=== PATIENT | male | born 1935 | race Caucasian/White ===

== ENCOUNTER 2016-10-04 00:24 | Inpatient (IN) ==
--- NOTE | 2016-10-04 00:47 | Emergency Department Note ---
Disposition Clinical Impression: TIA (transient ischemic attack) Qualifiers: Transient cerebral ischemia type: unspecified Qualified Code(s): G45.9 - Transient cerebral ischemic attack, unspecified Disposition: Admitted As Inpatient Condition: Good Weakness HPI - General Chief complaint: ED Weakness Stated complaint: weakness Time Seen by Provider: 10/04/16 00:44 Source: patient, family, EMS Mode of arrival: EMS Limitations: physical limitation Nursing Notes Reviewed: Yes Vital Signs Reviewed: Yes - History of Present Illness HPI Narrative: 81-year-old male history of CVA, seizures, hyperlipidemia who presents to the ER with a chief complaint of weakness and altered mental status. Patient is accompanied by . She states that this evening prior to arrival that she was helping the patient go to the bathroom. She reports that he was not following her commands and would not walk on his own. She states that she had to help him get back from the bathroom. She states she still would not follow her commands and was not responding when she was speaking. EMS was called and the patient was brought in for evaluation. History is obtained by the . She states that he has had a CVA in 2013 with resultant right sided deficits. Patient is also hard of hearing and follows ENT for management. Patient has no complaints here today. She reports that he seems to be back to his usual self. No other complaints. Pt Subjective Complaint: generalized weakness/fatigue Onset (ago): Just [employer] Duration: now resolved Location: generalized Migration: none Pain Severity: none Pain Scale: 0 Improves with: none Worsens with: none Associated symptoms: Denies: chest pain, fever/chills, nausea/vomiting, shortness of breath, syncope - Related Data Allergies Allergy/AdvReac Type Severity Reaction Status Date / Time Hydromorphone [From Dilaudid] Allergy See Verified 05/13/16 11:54 Comments All systems ED: reviewed and negative except as stated. Constitutional: Denies: fever Cardiovascular: Denies: chest pain Respiratory: Denies: cough, dyspnea Gastrointestinal: Denies: abdominal pain, nausea, vomiting Neurological: Denies: headache, weakness, numbness Past Medical History - Past Medical History Attestation: Yes The following information was validated with the patient. Source: patient Medical history: Reports: CVA, hyperlipidemia, seizures, TIA Surgical history: Reports: non-contributory Psychiatric history: Reports: depression - Social History Smoking Status: Never smoker Smokeless Tobacco Status: No Alcohol use: Reports: none Drug use: Reports: none Physical Exam - General Limitations: no limitations General appearance: alert, in no apparent distress - Head Head exam: atraumatic, normocephalic, normal inspection - Eye Eye exam: Present: normal appearance, EOMI - ENT ENT exam: normal exam - Neck Neck exam: Present: normal inspection - Chest Chest inspection: Present: normal inspection, symmetric chest wall rise - Respiratory Respiratory exam: Present: normal lung sounds bilaterally - Cardiovascular Cardiovascular exam: Present: regular rate, normal rhythm, normal heart sounds - Abdominal Exam Abdominal exam: Present: soft, Non-Tender. Absent: tenderness - Extremities Exam Extremities exam: Present: normal inspection, full ROM - Expanded Upper Extremity Exam Shoulder exam: Present: normal inspection, full ROM Arm exam: Present: normal inspection, full ROM Elbow exam: Present: normal inspection, full ROM Forearm/Wrist exam: Present: normal inspection, full ROM Hand exam: Present: normal inspection, full ROM - Expanded Lower Extremity Exam Hip/Pelvis exam: Present: normal inspection, full ROM Upper leg exam: Present: normal inspection, full ROM Knee exam: Present: normal inspection, full ROM Lower leg exam: Present: normal inspection, full ROM Ankle exam: Present: normal inspection, full ROM Foot/toe exam: Present: normal inspection, full ROM - Neurological Exam Neurological exam: Present: alert, CN II-XII intact, motor sensory deficit - Expanded Neurological Exam Speech: Present: fluid speech Motor strength - LUE: 5/5 Motor strength - RUE: 4/5 Motor strength - LLE: 5/5 Motor strength - RLE: 5/5 Sensory exam upper extremity: light touch: Abnormal Right Sensory exam lower extremity: light touch: Normal Coma Scale Eye Opening: Spontaneous Coma Scale Motor Response: Obeys Commands Coma Scale Verbal Response: Oriented Coma Scale Total: 15 - Psychiatric Psychiatric exam: Present: normal affect, normal mood - Skin Skin exam: Present: warm, dry, intact, normal color Course Course Narrative: Patient seen and examined. Vital signs reviewed. We will get a CT scan of the head. We will also get basic labs, EKG and urinalysis. NIH of 2 given his sensory deficit in the right upper extremity as well as muscle weakness. - Reevaluation(s) Reevaluation #1: Discussed results of imaging and lab work and the patient and family. Vital Signs Temperature 97.7 F 10/04/16 00:28 Pulse Rate 85 10/04/16 00:28 Respiratory Rate 16 10/04/16 00:28 Blood Pressure 145/101 10/04/16 00:28 O2 Sat by Pulse Oximetry 96 10/04/16 00:28 Temperature 97.7 F 10/04/16 00:28 Pulse Rate 75 10/04/16 01:17 Respiratory Rate 16 10/04/16 03:11 Blood Pressure 146/68 10/04/16 03:11 O2 Sat by Pulse Oximetry 98 10/04/16 01:17 Oxygen Delivery Oxygen Delivery Room Air Weakness - MDM Narrative Medical decision making narrative: 81-year-old male presents to the ER due to altered mental status at home. Resolved prior to arrival. reports that he was not cooperating well at home with commands. History of CVA in the past. CT scan here shows encephalomalacia as per radiology read. Other lab work unremarkable. Patient admitted to the hospitalist service for further management. - Lab Data Lab results reviewed: Yes I reviewed the patient's lab results. Result diagrams: 10/04/16 01:21 10/04/16 01:21 Lab Results 10/04/16 10/04/16 10/04/16 Range/Units 00:32 01:21 01:21 WBC 9.5 (4.3-11.1) K/mcL RBC 4.70 (4.19-5.50) M/mcL Hgb 13.9 (12.9-16.9) g/dL Hct 39.6 (37.5-50.1) % MCV 84.3 (83.0-100.0) fL MCH 29.6 (28.0-33.3) pg MCHC 35.1 (31.6-35.5) g/dL RDW 12.7 (11.5-14.5) % Plt Count 228 (140-400) K/mcL MPV 9.8 (9.4-12.4) fL Immature Gran % 0.5 (0-4) % Seg Neutrophils % 72.8 % Lymphocytes % 18.0 % Monocytes % 7.4 % Eosinophils % 1.1 % Basophils % 0.2 % Neutrophils # 6.9 (1.6-8.9) K/mcL Lymphocytes # 1.7 (0.6-4.6) K/mcL Monocytes # 0.7 (0.0-1.3) K/mcL Eosinophils # 0.1 (0.0-0.6) K/mcL Basophils # 0.0 (0.0-0.2) K/mcL Sodium 140 (136-145) mEq/L Potassium 4.6 H (3.5-4.5) mEq/L Chloride 109 (98-109) mEq/L Carbon Dioxide 20 (19-29) mEq/L BUN 20 (8-26) mg/dL Creatinine 1.26 H (0.72-1.25) mg/dL Est GFR ( Amer) > 60 (> 60) Est GFR (Non-Af Amer) 55 L (> 60) BUN/Creatinine Ratio 16 (6-26) Glucose 103 H (70-99) mg/dL POC Glucose 102 H (58-89) Calculated Osmolality 293 (280-300) Calcium 8.1 L (8.6-10.8) mg/dL Total Bilirubin 0.2 (0.2-1.2) mg/dL AST 20 (5-34) Units/L ALT 33 (0-55) Units/L Alkaline Phosphatase 64 (38-126) Units/L Troponin I (0-0.03) ng/mL Serum Total Protein 6.8 (6.0-8.3) g/dL Albumin 3.1 L (3.5-5.0) g/dL Globulin 3.7 H (2.4-3.5) g/dL Albumin/Globulin Ratio 0.8 L (1.1-2.2) 10/04/16 Range/Units 01:21 WBC (4.3-11.1) K/mcL RBC (4.19-5.50) M/mcL Hgb (12.9-16.9) g/dL Hct (37.5-50.1) % MCV (83.0-100.0) fL MCH (28.0-33.3) pg MCHC (31.6-35.5) g/dL RDW (11.5-14.5) % Plt Count (140-400) K/mcL MPV (9.4-12.4) fL Immature Gran % (0-4) % Seg Neutrophils % % Lymphocytes % % Monocytes % % Eosinophils % % Basophils % % Neutrophils # (1.6-8.9) K/mcL Lymphocytes # (0.6-4.6) K/mcL Monocytes # (0.0-1.3) K/mcL Eosinophils # (0.0-0.6) K/mcL Basophils # (0.0-0.2) K/mcL Sodium (136-145) mEq/L Potassium (3.5-4.5) mEq/L Chloride (98-109) mEq/L Carbon Dioxide (19-29) mEq/L BUN (8-26) mg/dL Creatinine (0.72-1.25) mg/dL Est GFR ( Amer) (> 60) Est GFR (Non-Af Amer) (> 60) BUN/Creatinine Ratio (6-26) Glucose (70-99) mg/dL POC Glucose (58-89) Calculated Osmolality (280-300) Calcium (8.6-10.8) mg/dL Total Bilirubin (0.2-1.2) mg/dL AST (5-34) Units/L ALT (0-55) Units/L Alkaline Phosphatase (38-126) Units/L Troponin I 0.00 (0-0.03) ng/mL Serum Total Protein (6.0-8.3) g/dL Albumin (3.5-5.0) g/dL Globulin (2.4-3.5) g/dL Albumin/Globulin Ratio (1.1-2.2) - Radiology Data Radiology results reviewed: Yes I reviewed the patient's radiology results. Chest X-Ray 10/04/16 00:44 IMPRESSION: 1. No acute cardiopulmonary disease. D/ / Moose Tomlinson MD / Moose Tomlinson MD Interpreting Provider: Moose Tomlinson MD Head CT 10/04/16 00:44 IMPRESSION: 1. Left frontoparietal encephalomalacia with superimposed small vessel chronic ischemic changes without acute hemorrhage or definite evidence for acute ischemia. 2. Grossly stable sellar and suprasellar mass. D/ / Te Angel MD / Te Angel MD Interpreting Provider: Te Angel MD - EKG Data EKG attestation: Yes I reviewed and interpreted this EKG. EKG results narrative: EKG demonstrates atrial fibrillation with a rate of 83 bpm. Normal axis. QRS duration [address] elevations or depressions. No acute ischemic findings. No significant changes from previous EKG dated 09/19/14. Tori - Tori Situation: Demographics, MOA Background: Presenting Complaint, Relevant PMH, Meds, & Allergies Assessment: Vital Signs, Course and respsone to treatment, Exam Concerns, Patient/Family Expectation, Pertinant Lab Results, Outstanding Labs Recommendation: Barrier(s) to disposition, Recommendation based on pending studies, treatments, or consults S.BAndrew Report Given to: Dr. Mark Valle Repor Time: 03:10 Attestation Statement - Attestation Attestation: I, David Carty MD, personally performed a history and physical exam of the patient and discussed their management with the resident. I reviewed the resident's note and agree with the documented findings, medical decision making , and plan of care. 81-year-old male presents to the emergency department with complaining that he had an episode at home this evening decreased responsiveness. He seemed confused and would not respond or follow commands. He was not unresponsive. He has a prior history of a stroke with weakness on one side. says he normally ambulates using a walker. With this episode tonight she states he was trying to get up from a chair and did not know where to place his hands on the walker. He did not know how to help her to help him up from the chair. Symptoms have resolved and patient seems to be pretty much back to his baseline now. He is extremely hard of hearing and really unable to provide any history or review of systems. History obtained from . 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 She states that she does not have any help to care for him. On exam patient is a well-developed well-nourished elderly male in no acute distress. He is alert and follows commands. Extremely hard of hearing. Breath sounds are equal bilaterally. Heart regular rate and rhythm. Abdomen is soft and nontender with normal bowel sounds. No distention. Labs reviewed. Chest x-ray negative. Head CT shows no acute intracranial abnormality. No acute changes on EKG. The hospitalist, Dr. Flores, was consulted and accepted admission of the patient.
[2016-10-04 01:36] LABS: Basophils % 0.2 %; Eosinophils # 0.1 K/mcL (0.0-0.6); Eosinophils % 1.1 %; Hematocrit 39.6 % (37.5-50.1); Hemoglobin 13.9 g/dL (12.9-16.9); Immature Granulocytes % 0.5 % (0-4); Lymphocytes # 1.7 K/mcL (0.6-4.6); Mean Corpuscular HGB Conc 35.1 g/dL (31.6-35.5); Mean Corpuscular Hemoglobin 29.6 pg (28.0-33.3); Mean Corpuscular Volume 84.3 fL (83.0-100.0); Mean Platelet Volume 9.8 fL (9.4-12.4); Monocytes # 0.7 K/mcL (0.0-1.3); Monocytes % 7.4 %; Neutrophils # 6.9 K/mcL (1.6-8.9); Platelet Count 228 K/mcL (140-400); Red Cell Distribution Width 12.7 % (11.5-14.5); Segmented Neutrophils % 72.8 %
[2016-10-04 01:46] LABS: Alanine Aminotransferase 33 Units/L (0-55); Albumin 3.1 g/dL (3.5-5.0); Albumin/Globulin Ratio 0.8 (1.1-2.2); Alkaline Phosphatase 64 Units/L (38-126); Aspartate Amino Transferase 20 Units/L (5-34); BUN/Creatinine Ratio 16 (6-26); Bilirubin,Total 0.2 mg/dL (0.2-1.2); Blood Urea Nitrogen 20 mg/dL (8-26); Calcium 8.1 mg/dL (8.6-10.8); Carbon Dioxide 20 mEq/L (19-29); Chloride 109 mEq/L (98-109); Globulin 3.7 g/dL (2.4-3.5); Glucose 103 mg/dL (70-99); Osmolality,Calculated 293 (280-300); Potassium 4.6 mEq/L (3.5-4.5); Sodium 140 mEq/L (136-145); Total Protein 6.8 g/dL (6.0-8.3); eGFR For African Americans > 60 (> 60); eGFR For Non-African Americans 55 (> 60)
[2016-10-04] MEDS ORDERED: Ondansetron 4 MG/2 ML VIAL IVP PRN (03:51)
[2016-10-04] MEDS ORDERED: *HR* OxyCODONE Immed Rel 5 MG TABLET PO PRN (03:51)
[2016-10-04] MEDS ORDERED: Naloxone 0.4 MG/ML INJ IVP PRN (03:51)
[2016-10-04] MEDS ORDERED: Ketorolac 30 MG/ML VIAL IVP PRN (03:51)
[2016-10-04] MEDS ORDERED: Acetaminophen 325 MG TABLET PO PRN (03:51)
[2016-10-04] MEDS ORDERED: Ipratropium/Albuterol Neb 3 ML IH PRN (04:04)
--- NOTE | 2016-10-04 04:15 | Internal Med History&Physical ---
Date of Encounter: 10/04/16 Time of Encounter: 03:30 Assessment and Plan (1) Acute on chronic alteration in mental status Current visit: Yes Status: Acute . (2) CVA, old, hemiparesis Current visit: Yes Status: Chronic . (3) CVA, old, dysarthria Current visit: Yes Status: Chronic . (4) CVA, old, cognitive deficits Current visit: Yes Status: Chronic . (5) CVA, old, aphasia Current visit: Yes Status: Chronic . (6) CVA, old, ataxia Current visit: Yes Status: Chronic . (7) Seizure disorder as sequela of cerebrovascular accident Current visit: Yes Status: Chronic . (8) HTN (hypertension) Current visit: Yes Status: Chronic . Qualifiers: Hypertension type: essential hypertension Qualified Code(s): I10 - Essential (primary) hypertension (9) HLD (hyperlipidemia) Current visit: Yes Status: Chronic Qualifiers: Hyperlipidemia type: mixed hyperlipidemia Qualified Code(s): E78.2 - Mixed hyperlipidemia (10) Accelerated hypertension Current visit: Yes Status: Chronic . (11) Hearing deficit Current visit: Yes Status: Chronic . Qualifiers: Laterality: bilateral Qualified Code(s): H91.93 - Unspecified hearing loss , bilateral (12) CKD (chronic kidney disease) stage 3, GFR 30-59 ml/min Current visit: Yes Status: Chronic . (13) Hyperkalemia Current visit: Yes Status: Acute . (14) Chronic anticoagulation Current visit: Yes Status: Chronic . (15) Paroxysmal atrial fibrillation Current visit: Yes Status: Chronic . (16) Chronic mastoiditis, bilateral Current visit: Yes Status: Chronic . (17) Otitis media in diseases classified elsewhere, right ear Current visit: Yes Status: Acute . (18) Type 2 diabetes mellitus Current visit: Yes Status: Chronic . 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 (20) Gait instability Current visit: Yes Status: Chronic . (21) At risk for accident in home Current visit: Yes Status: Acute . (22) At risk for acid-base imbalance Current visit: Yes Status: Acute . (23) At risk for activity intolerance Current visit: Yes Status: Acute . (24) At risk for acute confusion Current visit: Yes Status: Acute . (25) At risk for acute ischemic cardiac event Current visit: Yes Status: Acute . (26) Complete immobility due to severe physical disability or frailty Current visit: Yes Status: Acute . (27) TIA (transient ischemic attack) Current visit: Yes Status: Acute . Qualifiers: Transient cerebral ischemia type: unspecified Qualified Code(s): G45.9 - Transient cerebral ischemic attack, unspecified Internal Medicine - H&P: HPI Chief complaint: Confusion. Weakness. Admitted From: Emergency Dept Plans for Post Hospital Care: Home History of present illness: Mr. Carter is a 81 year old male is admitted to [facility] through the emergency department when he presents via EMS with complaints of generalized weakness and alteration in mental status. Patient is accompanied by his .. There is a known history of prior CVA with left hemiparesis, seizure disorder, atrial fibrillation, hypertension, dyslipidemia. He is also followed by a neurosurgeon for a enlarging pituitary macroadenoma yearly updates. The states that the evening prior to arrival the patient suffers dense deficits from his prior CVA (including right hemiparesis, dysarthria, dysphagia) was unable to understand and follow commands as she was attempting to help him go to the bathroom. Her concern was that he was experiencing another stroke with increasing deficits. On arrival in the emergency department the acute concerns with this in the home setting seemed to resolve spontaneously with the patient appeared responsive to direct questioning although was limited. He was oriented and able to follow simple commands. He appeared in no acute distress. Screening studies noted accelerated hypertension. CBC with differential was normal. Comprehensive metabolic panel noted stage III CKD mile hyperkalemia mild hypoalbuminemia. Troponin was normal. EKG demonstrated atrial fibrillation but with a controlled ventricular response and no acute ischemic changes. CT of the head without contrast was treated left frontoparietal encephalomalacia without apparent acute hemorrhage or infarct. A stable appearing similar and supra-cellar mass consistent with patient's pituitary adenoma was seen. Chronic mastoiditis was noted. Chest x- ray was benign. Given the patient's significant debility and nature of deficits witnessed by his a formal evaluation will be pursued. The patient was visited and interviewed and examined. Cumulative laboratory and radiographic data base was considered and discussed. Pertinent ancillary medical records including ECW and PCI documentation was reviewed and considered. Given the patient's presenting concerns, past medical history, clinical findings and symptoms, he is admitted at this time will undergo further evaluation and disposition. Orders were written as per the computerized physician border measurer system.......................................................................... .................... Consultative opinions will be sought as clinical circumstances justify. Pain management needs will be addressed. Laboratory /radiographic data base will be updated as appropriate. Studies include: Cultures of blood urine sputum, UA, prolactin, CPK, pt/inr, aptt, cardiac injury panel, BNP, metabolic and hematologic panel, magnesium , phosphorus, ionized calcium, thyroid panel, lipid profile, A1c, C-peptide, CRP, sed rate, blood gas, B12, folate, lactic acid, serologies, etc. Precautions: Aspiration, fall, seizure, delirium protocol/surveillance initiated. Telemetry with continuous hemodynamic monitoring and pulse oximetry initiated. Orthostatic vital signs Empiric antibody coverage: Intravenous Rocephin and azithromycin pending culture data. Special studies: CT brain, MRI brain, MRA head/neck, chest x-ray, telemetry, EKG , echocardiogram and EEG. Pulmonary toilet: Incentive spirometry. PRNaerosol bronchodilator, mucolytic, antitussive, Supplemental oxygen. Corticosteroid therapyPRN. CPAP/BiPAP supplemental oxygen deliveryPRN. Aerosol Mucomyst therapyPRN. Fluid and electrolyte repletion efforts will proceed. Careful attention to fluid balance and renal recovery will be emphasized. Avoidance of nephrotoxic exposure and adverse drug drug interaction in the setting of impaired renal function will be monitored closely. Acute coronary syndrome protocol/surveillance initiated. Acute ACUTE CARE PHYSICIAN protocols and surveillance initiated. Continuance of chronic anticoagulation. Warfarin dosing as per pharmacy (goal INR 2-3) DVT and PUD prophylaxis initiated: PPI therapy, intermittent pneumatic cuffs/ TEDs. Immunization updates recommended. Influenza and pneumococcal vaccinations as part of ongoing preventative healthcare recommendations strongly recommended. Smoking cessation counseling addressed. Patient is a nonsmoker. Advanced care directive discussion briefly addressed. Patient does not declare any healthcare restrictions at this time. Cardiovascular risk appraisal and cardiovascular risk reduction efforts will be emphasized. Physical and occupational therapy consulted to evaluate patient's functional capacity and progress mobility as circumstances permit. Sliding scale insulin coverage, ADA dietary restraint and schedule an as-needed basis fingerstick glucose assessments were initiated. Nutrition/diabetes education counseling may be considered as circumstances justify. Outpatient medication schedules will be reviewed, confirmed and facilitated as appropriate. Reconciliation of home treatments including adjustments, substitutions and reintroduction into the treatment regimen will address necessary maintenance therapies for chronic pre-existing medical conditions. Plan of care has been reviewed and discussed in detail with the patient. Questions addressed. Hospital course dictated by clinical findings, treatment response and potential consultative interventions. Patient is at risk for further acute clinical decline and morbidity due to frailty, chief complaints and comorbid conditions. Condition is serious. Prognosis is guarded. CODE STATUS is DNR comfort care arrest. Past Med Surg Social Fam HX - Past Medical History Source: old records reviewed Medical history: arthritis, atrial fibrillation, coronary artery disease, CVA, diabetes, GERD, hyperlipidemia, hypertension, seizures, TIA, other Psychiatric history: anxiety, depression, other - Past Surgical History Surgical History: appendectomy, cholecystectomy, colectomy, knee replacement, orthopedic, other, sinus surgery (Adenoidectomy-tonsillectomy), vascular surgery (Status post CVA probable lysis), other - Social History Smoking Status: Never smoker Smokeless Tobacco Status: No Alcohol use: none Drug use: none Occupational status: retired Current living situation: Home, With Family Activity Level: Uses cane/walker, Wheelchair bound, Bed bound, Mostly sedentary , Other Recent Out of Country Travel Within the Last 8 Weeks: No Exposure or Possible Exposure to Illness During Travel: No - Family History Brother Living Status: Hx Family Cancer: Yes Internal Medicine - H&P: Meds Aspirin [Lo-Dose Aspirin EC] 81 mg PO DAILY 10/04/16 [History] Atenolol [Tenormin] 12.5 mg PO DAILY 10/04/16 [History] Cholecalciferol (Vitamin D3) [Vitamin D] 2,000 unit PO DAILY 10/04/16 [History] Citalopram Hydrobromide [Citalopram HBr] 10 mg PO DAILY 10/04/16 [History] Ferrous Sulfate [Iron] 325 mg PO BID 10/04/16 [History] Glimepiride [Amaryl] 2 mg PO DAILY 10/04/16 [History] Hydrocortisone [Cortef] 10 mg PO QPM 10/04/16 [History] Hydrocortisone [Cortef] 15 mg PO QAM 10/04/16 [History] LevETIRAcetam [Keppra] 500 mg PO Q12HR 10/04/16 [History] Levothyroxine [Synthroid] 100 mcg PO DAILY 10/04/16 [History] Lovastatin [Altoprev] 20 mg PO DAILY 10/04/16 [History] Multivit-Min/FA/Lycopen/Lutein [Adults 50+ Multivitamin Tablet] 1 tab PO DAILY 10/04/16 [History] Omeprazole [PriLOSEC] 20 mg PO BIDAC 10/04/16 [History] Warfarin [Coumadin] 5 mg PO QPM 10/04/16 [History] Allergies Hydromorphone [From Dilaudid] Allergy (Verified 05/13/16 11:54) See Comments All Systems PM: A 10-system review of systems was performed and is negative for pertinent findings except as documented above in the HPI. - Constitutional Constitutional: as per HPI, malaise, no chills, no fever(s), no night sweats - EENT Eyes: as per HPI, no change in vision, no discharge, no pain, no photophobia Ears: as per HPI, decreased hearing, other, no ear discharge, no ear pain, no tinnitus Nose, mouth and throat: as per HPI, no dysphagia, no nasal discharge, no neck pain, no sore throat - Cardiovascular Cardiovascular ROS IM: as per HPI, no chest pain, no diaphoresis, no dyspnea, no lightheadedness, no palpitations, no syncope - Respiratory Respiratory: as per HPI, no cough, no dyspnea, no wheezing, no excessive phlegm production - Gastrointestinal Gastrointestinal: as per HPI, no abdominal pain, no diarrhea, no hematemesis, no hematochezia, no melena, no nausea, no vomiting - Genitourinary Genitourinary ROS male: as per HPI - Musculoskeletal Musculoskeletal ROS IM: as per HPI, no numbness, no tingling - Integumentary Integumentary IM: as per HPI, no rash, no unusual bruising - Neurological Neurological ROS: abnormal gait, abnormal hearing, abnormal speech, confusion, focal weakness, other, no convulsions, no numbness, no tingling, no tremor(s) - Psychiatric Psychiatric: as per HPI - Endocrine Endocrine IM: as per HPI - Hematologic/Lymphatic Hematologic/Lymphatic: as per HPI, no easy bruising - Allergic/Immunologic Allergic/Immunologic: as per HPI - Constitutional Vitals: Temp Pulse Resp BP Pulse Ox 97.7 F 75 16 146/68 98 10/04/16 00:28 10/04/16 01:17 10/04/16 03:11 10/04/16 03:11 10/04/16 01:17 Vital Signs Temp Pulse Resp BP Pulse Ox 10/04/16 03:11 16 146/68 10/04/16 01:17 75 16 150/107 98 10/04/16 00:28 97.7 F 85 16 145/101 96 Intake and Output 10/03/16 10/03/16 10/04/16 15:59 23:59 07:59 Other: Stool Characteristics Normal for Patient Weight 95.254 kg Blood Glucose* 102 Patient Weight 10/04/16 23:59 Weight 95.254 kg Allergies Allergy/AdvReac Type Severity Reaction Status Date / Time Hydromorphone [From Dilaudid] Allergy See Verified 05/13/16 11:54 Comments General appearance: Present: cachectic, cooperative, mild distress, A&O X 3, answers questions appropriately - Head Head exam: Present: atraumatic, normocephalic - Eye Eye exam: Present: EOMI, PERRL, conjuntiva pink, sclera anicteric Pupils: Present: normal accommodation, PERRL - ENT ENT exam: Present: mucous membranes moist, normal oropharynx - Neck Neck exam general surgery: Present: supple, trachea midline. Absent: lymphadenopathy, nuchal rigidity - Respiratory Respiratory exam: Present: decreased breath sounds, CTAB. Absent: accessory muscle use, rales, rhonchi, wheezes - Cardiovascular Cardiovascular exam: Present: distant heart sounds, RRR, +S1, +S2. Absent: diastolic murmur, gallop, rubs, systolic murmur - GI/Abdominal GI/Abdominal exam: Present: normal bowel sounds, soft, no peritoneal signs. Absent: distended, tenderness - Extremities Exam Extremities exam: Present: warm, radial pulses palpable and symetrical. Absent : calf tenderness, cyanotic, full ROM (Right hemiparesis with contractures), pedal edema - Expanded Upper Extremities Exam Forearm wrist exam: Absent: normal inspection Hand wrist exam: Present: deformity (Right upper extremity flexion contracture of the hands and atrophy of musculature.). Absent: normal inspection - Expanded Lower Extremities Exam Ankle exam: Absent: normal inspection Foot/Toe exam: Present: deformity. Absent: normal inspection Neuro vascular tendon exam: Present: motor deficit Gait: Present: not tested/not observed - Neurological Exam Neurological exam: Present: alert, altered, CN II-XII intact, motor sensory deficit. Absent: oriented X3, pronater drift, facial droop, speech deficit - Expanded Neurological Exam Neurological exam expanded: Present: ataxia, inattentive, tremor Patient oriented to: Present: person, place Speech: Present: garbled Coma Scale Eye Opening: Spontaneous Coma Scale Motor Response: Obeys Commands Coma Scale Verbal Response: Oriented Coma Scale Total: 15 - Psychiatric Psychiatric exam: Present: normal affect, normal mood - Skin Skin exam: Present: dry, intact Internal Med - H&P Results - Labs CBC & Chem 7: 10/06/16 05:35 10/06/16 05:35 Labs: Short CBC 10/04/16 Range/Units 01:21 WBC 9.5 (4.3-11.1) K/mcL Hgb 13.9 (12.9-16.9) g/dL Hct 39.6 (37.5-50.1) % Plt Count 228 (140-400) K/mcL Neutrophils # 6.9 (1.6-8.9) K/mcL BMP 10/04/16 Range/Units 01:21 Sodium 140 (136-145) mEq/L Potassium 4.6 H (3.5-4.5) mEq/L Chloride 109 (98-109) mEq/L Carbon Dioxide 20 (19-29) mEq/L BUN 20 (8-26) mg/dL Creatinine 1.26 H (0.72-1.25) mg/dL Glucose 103 H (70-99) mg/dL Calcium 8.1 L (8.6-10.8) mg/dL Cardiac Enzymes 10/04/16 Range/Units 01:21 Troponin I 0.00 (0-0.03) ng/mL Liver Function 10/04/16 Range/Units 01:21 Total Bilirubin 0.2 (0.2-1.2) mg/dL AST 20 (5-34) Units/L ALT 33 (0-55) Units/L Alkaline Phosphatase 64 (38-126) Units/L Albumin 3.1 L (3.5-5.0) g/dL Abnormal lab results Potassium 4.6 mEq/L (3.5-4.5) H 10/04/16 01:21 Creatinine 1.26 mg/dL (0.72-1.25) H 10/04/16 01:21 Est GFR (Non-Af Amer) 55 (> 60) L 10/04/16 01:21 Glucose 103 mg/dL (70-99) H 10/04/16 01:21 POC Glucose 102 (58-89) H 10/04/16 00:32 Calcium 8.1 mg/dL (8.6-10.8) L 10/04/16 01:21 Albumin 3.1 g/dL (3.5-5.0) L 10/04/16 01:21 Globulin 3.7 g/dL (2.4-3.5) H 10/04/16 01:21 Albumin/Globulin Ratio 0.8 (1.1-2.2) L 10/04/16 01:21 Laboratory Last Values WBC 9.5 K/mcL (4.3-11.1) 10/04/16 01:21 RBC 4.70 M/mcL (4.19-5.50) 10/04/16 01:21 Hgb 13.9 g/dL (12.9-16.9) 10/04/16 01:21 Hct 39.6 % (37.5-50.1) 10/04/16 01:21 MCV 84.3 fL (83.0-100.0) 10/04/16 01:21 MCH 29.6 pg (28.0-33.3) 10/04/16 01:21 MCHC 35.1 g/dL (31.6-35.5) 10/04/16 01:21 RDW 12.7 % (11.5-14.5) 10/04/16 01:21 Plt Count 228 K/mcL (140-400) 10/04/16 01:21 MPV 9.8 fL (9.4-12.4) 10/04/16 01:21 Immature Gran % 0.5 % (0-4) 10/04/16 01:21 Seg Neutrophils % 72.8 % 10/04/16 01:21 Lymphocytes % 18.0 % 10/04/16 01:21 Monocytes % 7.4 % 10/04/16 01:21 Eosinophils % 1.1 % 10/04/16 01:21 Basophils % 0.2 % 10/04/16 01:21 Neutrophils # 6.9 K/mcL (1.6-8.9) 10/04/16 01:21 Lymphocytes # 1.7 K/mcL (0.6-4.6) 10/04/16 01:21 Monocytes # 0.7 K/mcL (0.0-1.3) 10/04/16 01:21 Eosinophils # 0.1 K/mcL (0.0-0.6) 10/04/16 01:21 Basophils # 0.0 K/mcL (0.0-0.2) 10/04/16 01:21 Sodium 140 mEq/L (136-145) 10/04/16 01:21 Potassium 4.6 mEq/L (3.5-4.5) H 10/04/16 01:21 Chloride 109 mEq/L (98-109) 10/04/16 01:21 Carbon Dioxide 20 mEq/L (19-29) 10/04/16 01:21 BUN 20 mg/dL (8-26) 10/04/16 01:21 Creatinine 1.26 mg/dL (0.72-1.25) H 10/04/16 01:21 Est GFR ( Amer) > 60 (> 60) 10/04/16 01:21 Est GFR (Non-Af Amer) 55 (> 60) L 10/04/16 01:21 BUN/Creatinine Ratio 16 (6-26) 10/04/16 01:21 Glucose 103 mg/dL (70-99) H 10/04/16 01:21 POC Glucose 102 (58-89) H 10/04/16 00:32 Calculated Osmolality 293 (280-300) 10/04/16 01:21 Calcium 8.1 mg/dL (8.6-10.8) L 10/04/16 01:21 Total Bilirubin 0.2 mg/dL (0.2-1.2) 10/04/16 01:21 AST 20 Units/L (5-34) 10/04/16 01:21 ALT 33 Units/L (0-55) 10/04/16 01:21 Alkaline Phosphatase 64 Units/L (38-126) 10/04/16 01:21 Troponin I 0.00 ng/mL (0-0.03) 10/04/16 01:21 Serum Total Protein 6.8 g/dL (6.0-8.3) 10/04/16 01:21 Albumin 3.1 g/dL (3.5-5.0) L 10/04/16 01:21 Globulin 3.7 g/dL (2.4-3.5) H 10/04/16 01:21 Albumin/Globulin Ratio 0.8 (1.1-2.2) L 10/04/16 01:21 - Impressions Chest X-Ray 10/04/16 00:44 IMPRESSION: 1. No acute cardiopulmonary disease. D/ / Moose Tomlinson MD / Moose Tomlinson MD Interpreting Provider: Moose Tomlinson MD Head CT 10/04/16 00:44 IMPRESSION: 1. Left frontoparietal encephalomalacia with superimposed small vessel chronic ischemic changes without acute hemorrhage or definite evidence for acute ischemia. 2. Grossly stable sellar and suprasellar mass. D/ / Te Angel MD / Te Angel MD Interpreting Provider: Te Angel MD - Attending Attestation My signature below is to certify that this patient is under my care and that I, or nurse practitioner, or a physician's executive administrative assistant , or resident physician working with me, has had a [id number] encounter with this patient. Allergies Hydromorphone [From Dilaudid] Allergy (Verified 05/13/16 11:54) See Comments I & O 10/01/16 10/02/16 10/03/16 10/04/16 23:59 23:59 23:59 23:59 Weight 95.254 kg Other: Stool Characteristics Normal for Patient Blood Glucose* 102 Medications Acetaminophen (Tylenol) 650 mg PO Q6HR PRN PRN Reason: Mild Pain (1-3) Stop: 04/05/17 03:52 Albuterol/Ipratropium (Duoneb) 3 ml IH H0CHEPN PRN; Protocol PRN Reason: Shortness Of Breath/Wheezing Stop: 04/05/17 04:05 Aspirin (Aspirin) 81 mg PO DAILY [facility] Stop: 04/05/17 09:01 Docusate Sodium (Colace) 100 mg PO BID PRN PRN Reason: Constipation Stop: 04/05/17 03:52 Heparin Sodium (Porcine) (Heparin) 5,000 unit SQ Q12HCO [facility] Stop: 04/05/17 06:01 Sodium Chloride (0.9 % Sodium Chloride) 1,000 mls @ 50 mls/hr IVC .Q20H [facility] Stop: 04/05/17 04:01 Ketorolac Tromethamine (Toradol) 10 mg IVP Q6HR PRN PRN Reason: Moderate Pain (4-6) Stop: 10/09/16 03:52 Naloxone HCl (Narcan) 0.4 mg IVP Q2MIN PRN PRN Reason: Opioid Reversal Stop: 04/05/17 03:52 Omeprazole (Prilosec) 20 mg PO DAILY@0630 RYAN PRN Reason: Protocol Stop: 04/05/17 06:31 Ondansetron HCl (Zofran) 4 mg IVP Q8HR PRN PRN Reason: Nausea And Vomiting Stop: 04/05/17 03:52 Oxycodone HCl (Roxicodone) 5 mg PO Q6HR PRN PRN Reason: Moderate Pain (4-6) Stop: 04/05/17 03:52 Simvastatin (Zocor) 20 mg PO HS [facility] Stop: 04/05/17 21:01 Orders 10/04/16 00:32 POC Glucometer Test [POC] Routine 10/04/16 00:34 12 lead ECG assessment [RC] NOW EKG [ECG 12 lead ECG] [ECG] Stat Mode Of Transportation: Stretcher Reason For Exam: weakness Order Doctor: David Carty Exam Performed At:: [facility] 10/04/16 00:44 Saline lock [RC] .ONCE Vital Signs Assessment [RC] PROTOCOL CT head/brain wo con [CT] Stat Mode Of Transportation: Stretcher Reason For Exam: weakness, hx of cva Exam Performed At:: [facility] Allergic to Contrast: No XR chest 1V portable [XR] Stat Mode Of Transportation: Stretcher Reason For Exam: weakness Exam Performed At:: [facility] Urinalysis Reflex Cult & Micro [URIN] Stat Comment: Specimen: Send someone from the department to collect 10/04/16 01:21 Complete Blood Count [HEME] Stat Comment: Specimen: Send someone from the department to collect Comprehensive Metabolic Panel Stat Comment: Specimen: Send someone from the department to collect Troponin I Stat Comment: Specimen: Send someone from the department to collect 10/04/16 02:[address] Stat Comment: Reason for Visit: TIA 10/04/16 02:43 PT/INR [Prothrombin Time INR] [COAG] Stat Comment: Specimen: Send someone from the department to collect 10/04/16 03:51 Aspiration precautions [RC] .CONTINUOUS Assess neurologic status [RC] Q15MX4,Q1HX2,Q4H Bed rest [RC] CONT Physician Instructions: Bed rest w/bedside commode [RC] PROTOCOL supervisor payroll [RC] CONT Lipid Panel Routine Comment: Specimen: Send someone from the department to collect Magnesium Routine Comment: Specimen: Send someone from the department to collect Phosphorous Routine Comment: Specimen: Send someone from the department to collect Urinalysis reflex Microscopic [URIN] Routine Comment: Specimen: Send someone from the department to collect Acetaminophen [Tylenol] 650 mg PO Q6HR PRN Docusate [Colace] 100 mg PO BID PRN Ketorolac [Toradol] 10 mg IVP Q6HR PRN Naloxone [Narcan] 0.4 mg IVP Q2MIN PRN Ondansetron [Zofran] 4 mg IVP Q8HR PRN OxyCODONE Immed Rel [Roxicodone] 5 mg PO Q6HR PRN 10/04/16 03:52 Head of bed elevation [RC] .CONTINOUS NPO (Nursing Order) [RC] .PRN Oxygen via nasal cannula Nasal Cannula 2 lpm Comment: Titrate O2 to main O2 sat greater than: 92% Peripheral IV [RC] CONT 10/04/16 03:54 Placement to Observation Routine Physician Instructions: Reason for Visit: Altered mental status/confusion. Weakness. Is VTE Prophylaxis Indicated?: Yes 10/04/16 03:55 Cardiac Monitoring Med/Surg [RC] .CONT Telemetry Reason: Stroke/Syncope/TIA Continuous pulse oximetry [RC] CONT Comment: Measure intake and output [RC] QSHIFT Measure weight [RC] DAILY Oxygen via nasal cannula Nasal Cannula 2 lpm Comment: Titrate O2 to main O2 sat greater than: 92% RT has an order or consult [RC] NOW 10/04/16 03:59 Consult to Occupational Therapy [CONS] Routine Comment: Evaluate, develop and implement POC Consult to Physical Therapy [CONS] Routine Comment: Evaluate, develop and implement POC 10/04/16 04:00 Troponin I Q6H Comment: Specimen: Send someone from the department to collect 0.9 % Sodium Chloride 1,000 ml IVC 50 mls/hr 10/04/16 04:04 Apply anti-embolic stockings [RC] .NOW Falls precautions (Deepak-Alexis [RC] ONCE Falls precautions [RC] ONCE Incentive Spirometry [RC] .6 TIMES PER HR WHILE AWAKE Seizure precautions [RC] CONT Ammonia Routine Comment: Specimen: Send someone from the department to collect C-Reactive Protein Routine Comment: Specimen: Send someone from the department to collect Creatine Kinase Routine Comment: Specimen: Send someone from the department to collect Erythrocyte Sedimentation Rate [HEME] Routine Comment: Specimen: Send someone from the department to collect Folate Routine Comment: Specimen: Send someone from the department to collect Lactate Dehydrogenase Routine Comment: Specimen: Send someone from the department to collect Prolactin Routine Comment: Specimen: Send someone from the department to collect Thyroid Stimulating Hormone Routine Comment: Specimen: Send someone from the department to collect Vitamin B12 Routine Comment: Specimen: Send someone from the department to collect MR angio head wo con [MR] Routine Mode Of Transportation: Stretcher Reason For Exam: TIA Order Doctor: Wes Case Exam Performed At:: [facility] MR angio neck wo con [MR] Routine Mode Of Transportation: Stretcher Reason For Exam: TIA Order Doctor: Wes Case Exam Performed At:: [facility] MR head/brain wo con [MR] Routine Mode Of Transportation: Stretcher Reason For Exam: TIA Order Doctor: Wes Case Exam Performed At:: [facility] Ipratropium/Albuterol Neb [Duoneb] 3 ml IH [id number] PRN EV echocardiogram Routine Mode Of Transportation: Portable Reason For Exam: TIA Order Doctor: Wes Case Exam Performed At:: [facility] 10/04/16 06:00 Heparin 5,000 unit SQ Q12HCO 10/04/16 06:30 Omeprazole [PriLOSEC] 20 mg PO DAILY@0630 10/04/16 09:00 Aspirin 81 mg PO DAILY 10/04/16 10:00 Troponin I Q6H Comment: Specimen: Send someone from the department to collect 10/04/16 16:00 Troponin I Q6H Comment: Specimen: Send someone from the department to collect 10/04/16 21:00 Simvastatin [Zocor] 20 mg PO HS 10/04/16 Breakfast Clear Liquid Diet Diet Modifications: NPO Diet Diet Modifications: 10/04/16 Dinner NPO Diet Diet Modifications: 10/04/16 Lunch NPO Diet Diet Modifications: Patient Problems (Last Updated 10/04/16 @ 03:10 by Richard Mayes DO) TIA (transient ischemic attack) (Acute) Vital Signs Temp Pulse Resp BP Pulse Ox 10/04/16 03:11 16 146/68 10/04/16 01:17 75 16 150/107 98 10/04/16 00:28 97.7 F 85 16 145/101 96 Laboratory Results 10/04/16 10/04/16 10/04/16 Range/Units 00:32 01:21 01:21 WBC 9.5 (4.3-11.1) K/mcL RBC 4.70 (4.19-5.50) M/mcL Hgb 13.9 (12.9-16.9) g/dL Hct 39.6 (37.5-50.1) % MCV 84.3 (83.0-100.0) fL MCH 29.6 (28.0-33.3) pg MCHC 35.1 (31.6-35.5) g/dL RDW 12.7 (11.5-14.5) % Plt Count 228 (140-400) K/mcL MPV 9.8 (9.4-12.4) fL Immature Gran % 0.5 (0-4) % Seg Neutrophils % 72.8 % Lymphocytes % 18.0 % Monocytes % 7.4 % Eosinophils % 1.1 % Basophils % 0.2 % Neutrophils # 6.9 (1.6-8.9) K/mcL Lymphocytes # 1.7 (0.6-4.6) K/mcL Monocytes # 0.7 (0.0-1.3) K/mcL Eosinophils # 0.1 (0.0-0.6) K/mcL Basophils # 0.0 (0.0-0.2) K/mcL Sodium 140 (136-145) mEq/L Potassium 4.6 H (3.5-4.5) mEq/L Chloride 109 (98-109) mEq/L Carbon Dioxide 20 (19-29) mEq/L BUN 20 (8-26) mg/dL Creatinine 1.26 H (0.72-1.25) mg/dL Est GFR ( Amer) > 60 (> 60) Est GFR (Non-Af Amer) 55 L (> 60) BUN/Creatinine Ratio 16 (6-26) Glucose 103 H (70-99) mg/dL POC Glucose 102 H (58-89) Calculated Osmolality 293 (280-300) Calcium 8.1 L (8.6-10.8) mg/dL Total Bilirubin 0.2 (0.2-1.2) mg/dL AST 20 (5-34) Units/L ALT 33 (0-55) Units/L Alkaline Phosphatase 64 (38-126) Units/L Troponin I (0-0.03) ng/mL Serum Total Protein 6.8 (6.0-8.3) g/dL Albumin 3.1 L (3.5-5.0) g/dL Globulin 3.7 H (2.4-3.5) g/dL Albumin/Globulin Ratio 0.8 L (1.1-2.2) 10/04/16 Range/Units 01:21 WBC (4.3-11.1) K/mcL RBC (4.19-5.50) M/mcL Hgb (12.9-16.9) g/dL Hct (37.5-50.1) % MCV (83.0-100.0) fL MCH (28.0-33.3) pg MCHC (31.6-35.5) g/dL RDW (11.5-14.5) % Plt Count (140-400) K/mcL MPV (9.4-12.4) fL Immature Gran % (0-4) % Seg Neutrophils % % Lymphocytes % % Monocytes % % Eosinophils % % Basophils % % Neutrophils # (1.6-8.9) K/mcL Lymphocytes # (0.6-4.6) K/mcL Monocytes # (0.0-1.3) K/mcL Eosinophils # (0.0-0.6) K/mcL Basophils # (0.0-0.2) K/mcL Sodium (136-145) mEq/L Potassium (3.5-4.5) mEq/L Chloride (98-109) mEq/L Carbon Dioxide (19-29) mEq/L BUN (8-26) mg/dL Creatinine (0.72-1.25) mg/dL Est GFR ( Amer) (> 60) Est GFR (Non-Af Amer) (> 60) BUN/Creatinine Ratio (6-26) Glucose (70-99) mg/dL POC Glucose (58-89) Calculated Osmolality (280-300) Calcium (8.6-10.8) mg/dL Total Bilirubin (0.2-1.2) mg/dL AST (5-34) Units/L ALT (0-55) Units/L Alkaline Phosphatase (38-126) Units/L Troponin I 0.00 (0-0.03) ng/mL Serum Total Protein (6.0-8.3) g/dL Albumin (3.5-5.0) g/dL Globulin (2.4-3.5) g/dL Albumin/Globulin Ratio (1.1-2.2) Assessments/Treatments 12 lead ECG assessment Start: 10/04/16 00: 34 Freq: NOW Status: Complete Document 10/04/16 00:35 LAP (Rec: 10/04/16 00:39 LAP [id number]) EKG Time EKG Completed 00:37 EKG performed by Lucinda MAURICIO EKG shown to and signed by Dr Carty Cardiac monitoring Start: 10/04/16 00: 27 Freq: Status: Active Document 10/04/16 00:35 LAP (Rec: 10/04/16 00:39 LAP [id number]) Cardiac Monitoring Heart Rate 81 Monitoring Method Telemetry Rhythm Sinus Rhythm Monitor Number bed 2 Dysphagia Screen Nursing Start: 10/04/16 00: 27 Freq: Status: Active Document 10/04/16 03:11 LAP (Rec: 10/04/16 03:13 LAP [id number]) Dysphagia Screen Nursing Coma Scale Eye Opening Spontaneous Coma Scale Motor Response Obeys Commands Coma Scale Verbal Response Oriented Coma Scale Total 15 Is score on [place] Coma Scale less than No 13? Is there Facial Asymmetry/Weakness? No Is there Tongue Asymmetry/Weakness? No Is there Palatal Asymmetry/Weakness? No ED Discharge Assessment Start: 10/04/16 00: 27 Freq: Status: Active Document 10/04/16 03:11 LAP (Rec: 10/04/16 03:13 LAP [id number]) ED Discharge Assessment ED Discharge Disposition Admitted ED Condition on Discharge Good Med Rec/Patient Pharmacy Completed? No Admitted to 3B Bed assigned [id number] Transported by airframe technician Report given to Nurse Care transferred to (name/credentials) Mook RN Information relayed patient's care treatments medications given condition recent/anticipated changes Clinical Documentation Summary Provided Yes Pain Scale 0 Pain Scale Used Standard (1-10) Blood Pressure 146/68 Heart rate 77 Respiratory Rate 16 Oxygen Delivery Room Air Oxygen Saturation 99 Critical Care Minutes 0 ED Weakness Assessment Start: 10/04/16 00: 27 Freq: Status: Active Document 10/04/16 00:35 LAP (Rec: 10/04/16 00:39 LAP [id number]) Weakness Assessment Symptoms/Complaint Generalized Weakness Onset jpta Duration Now Resolved Context Unknown Improves With Nothing Worsens With Nothing Associated Symptoms Denies Other Symptoms Level Of Consciousness Awake Alert Appropriate Follows Commands Patient Orientation Person Place Time Name Age Date of Day of Month Day of Week Month Year Time of Day Neurological Symptoms None Respiratory Effort Spontaneous Non-Labored Abdomen Description Flat Soft Non-Tender Stool Characteristics Normal for Patient Nausea/Vomiting Presence None ED Comment spouse states pt was confused upon waking this morning and was not able to follow directions. pt has increased rt sided weakness from prior stroke Glucose, blood point of care measurement Start: 10/04/16 00: 27 Freq: Status: Active Document 10/04/16 00:35 LAP (Rec: 10/04/16 00:39 LAP [id number]) Blood Glucose Assessment Blood Glucose* 102 Hypoglycemia Symptoms None Hyperglycemia Symptoms None NIHSS Start: 10/04/16 00: 27 Freq: ONCE Status: Complete Document 10/04/16 03:24 [id number] (Rec: 10/04/16 03:48 [id number] [facility] [place]14) NIH Stroke Scale Telemedicine used* No LOC Alert Month, Age Answers one correctly 1. Open, then close eyes 2. Make fist, Performs both correctly then let go Ability to follow examiner's finger Normal across horizontal plane Visual stimulus to pt's visual field No visual loss quadrants Shows teeth, raise eyebrows, squeeze Normal eyes shut Left: Extends arms, palms down holds for No drift for 10 seconds 10 seconds Right: Extends arms, palms down holds No drift for 10 seconds for 10 seconds Left: While supine, hold leg at 30 No drift for 5 seconds degrees for 5 seconds Right: While supine, hold leg at 30 No drift for 5 seconds degrees for 5 seconds Finger to nose. Heel down falcon. Normal, No Ataxia Pin prick to face, arm, trunk, and leg. Severe loss. Total sensory Compare side to side loss, pt unaware of being touched Name items, describe a picture, and read Mild to moderate aphasia. sentences Examiner can identify picture from response Evaluate speech clarity by pt repeating Mild, slurs some words listed words Use prior testing Modality=visual, Normal tactile/auditory, spacial NIHSS Total Score 5 Bilateral Pupil Reaction Reactive Pupil Size (mm) 3 NIHSS Modified Start: 10/04/16 00: 27 Freq: Status: Active Document 10/04/16 03:10 LAP (Rec: 10/04/16 03:11 LAP [id number]) Modified NIH Stroke Scale LOC Alert Month, Age Answers both correctly 1. Open, then close eyes 2. Make fist, Performs both correctly then let go Shows teeth, raise eyebrows, squeeze Normal eyes shut Left: Extends arms, palms down holds for No drift for 10 seconds 10 seconds Right: Extends arms, palms down holds Some effort against gravity, for 10 seconds limb drifts to bed Left: While supine, hold leg at 30 No drift for 5 seconds degrees for 5 seconds Right: While supine, hold leg at 30 No drift for 5 seconds degrees for 5 seconds NIHSS Modified Score 2 Coma Scale Eye Opening Spontaneous Coma Scale Motor Response Obeys Commands Coma Scale Verbal Response Oriented Coma Scale Total 15 Speech Pattern Normal rate Vehicle Leasing And Rental Manager Strength Left Greater Than Right Push/Pull Left Greater Than Right Numbness/Tingling No Level Of Consciousness Awake Alert Appropriate Follows Commands Patient Orientation Person Place Time Name Age Date of Day of Month Day of Week Month Year Time of Day Patient Behavior Appropriate Cooperative Ability to Follow Directions Excellent Impaired Cognition No: [id number] Neurological Symptoms None Saline lock insertion/management Start: 10/04/16 00: 44 Freq: .ONCE Status: Active Document 10/04/16 03:02 LAP (Rec: 10/04/16 03:03 LAP [id number]) IV Insertion/Site Assessment IV Attempt 1 Successful Successful Blood drawn and sent to Lab No Left Forearm Date of Insertion 10/04/16 Time of Insertion 03:02 Reason for IV Insertion Provide Access for Emergency IV Catheter Type Peripheral IV Gauge (gauge) 22 Site Observation Patent Lynndyl Dressing Applied Transparent Dressing Dry/Intact Patient Tolerance Tolerated Well Triage Start: 10/04/16 00: 27 Freq: Status: Active Document 10/04/16 00:28 LAP (Rec: 10/04/16 00:33 LAP [id number]) Triage Chief Complaint triage ED Weakness Patient Stated Complaint weakness AGUSTINA 3 Onset (ago) 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 When EMS initially arrived they noted that pt didnt seem to follow instructions but they were unsure if it was due to pt hearing deficit General Appearance alert in no apparent distress Work Related Injury? No Mode of arrival EMS Arrival via EMS PA Source patient family EMS Limitations no limitations Ebola Risk: Travel/Contact With Anyone No From Affected Area/s Has Patient Experienced Ebola Symptoms No Temperature (97.6 F-99.6 F) 97.7 F Temperature Source Oral Pulse Rate 85 Respiratory Rate 16 Blood Pressure 145/101 O2 Sat by Pulse Oximetry (95-100) 96 Oxygen Delivery Room Air Height 1.75 m Weight 95.254 kg Weight Measurement Method Stated by Patient Pain Scale 0 Pain Scale Used Standard (1-10) Medical history CVA hyperlipidemia seizures TIA Male surgical history appendectomy cholecystectomy herniorrhaphy Tonsillectomy Psychiatric history depression Smoking Status Never smoker Smokeless Tobacco Status No Alcohol Use none Drug Use none Patient resides with/at Spouse Safety Concerns Feels Safe At This Time Do you currently feel hopless, have No thoughts of self harm, or thoughts of harming others History of fall in last 14 days? Yes Influenza vaccine up to date Yes Pneumonia vaccine up to date Yes Tetanus UTD unsure Coma Scale Eye Opening Spontaneous Coma Scale Motor Response Obeys Commands Coma Scale Verbal Response Oriented Coma Scale Total 15 Vital Signs Assessment Start: 10/04/16 00: 44 Freq: PROTOCOL Status: Active Document 10/04/16 01:17 LAP (Rec: 10/04/16 01:17 LAP [id number]) ED Vital Signs Pain Reported No Pain Reported Pain Scale 0 Pain Scale Used Standard (1-10) Blood Pressure 150/107 Pulse Rate 75 Respiratory Rate 16 Effort Spontaneous Non-Labored Pulse Oximetry (95-100) 98 Oxygen Delivery Room Air Discharge Information ED Provider: David Carty Status: Departed Time Seen by Provider: 10/04/16 00:44 Condition: Good Triaged At: Emergency Discharge Date/Time: 10/04/16 03:13 Emergency Discharge Disposition: Admitted As Inpatient Clinical Impression TIA (transient ischemic attack) Emergency Discharge Comment: Admit Intervention Last Done ED Weakness Assessment 10/04/16 00:35 Query Result Weakness Symptoms/Complaint Generalized Weakness Weakness Onset jpta Weakness Duration Now Resolved Weakness Context Unknown Weakness Improves With Nothing Weakness Worsens With Nothing Weakness Associated Symptoms Denies Other Symptoms Level Of Consciousness Awake Alert Appropriate Follows Commands Patient Orientation Person Place Time Name Age Date of Day of Month Day of Week Month Year Time of Day Neurological Symptoms None Respiratory Effort Spontaneous Non-Labored Abdomen Description Flat Soft Non-Tender Stool Characteristics Normal for Patient Nausea/Vomiting Presence None ED Comment spouse states pt was confused upon waking this morning and was not able to follow directions. pt has increased rt sided weakness from prior stroke ED Discharge Assessment 10/04/16 03:11 Query Result ED Discharge Disposition Admitted ED Condition on Discharge Good Med Rec/Patient Phamracy completed? No ED Admit to 3B Bed assigned [id number] Transported by airframe technician Report given to Nurse Care transferred to Mook RN Information relayed patient's care treatments medications given condition recent/anticipated change Clinical Documentation Summary Provided Yes Severity scale (1-10) 0 Pain Scale Used Standard (1-10) Blood Pressure 146/68 Heart rate 77 Respiratory Rate 16 Oxygen Delivery Room Air Pulse Oximetry Reading 99 Critical Care Minutes 0 Observation Discharge Date/Time: Observation Discharge Disposition: Observation Discharge Comment: Instructions: Stand-Alone Forms: ED Satisfaction Letter Prescriptions: Visit Report - Forms: - Referrals: Radiology Results Chest X-Ray 10/04/16 00:44 IMPRESSION: 1. No acute cardiopulmonary disease. D/ / Moose Tomlinson MD / Moose Tomlinson MD Interpreting Provider: Moose Tomlinson MD Head CT 10/04/16 00:44
[2016-10-04 04:55] LABS: Chol/HDL Ratio 3.5 (0-4.9); Magnesium 1.6 mg/dL (1.6-2.6); Phosphorous 3.5 mg/dL (2.3-4.7)
[2016-10-04 05:23] LABS: Folate 16.4 ng/mL (7.0-31.4)
[2016-10-04] MEDS: 0.9 % Sodium Chloride 1,000 ML IVC SCH (05:24)
[2016-10-04] MEDS ORDERED: *HR* Heparin 5,000 UNIT/ML VIAL SQ SCH (06:00)
[2016-10-04] MEDS ORDERED: *HR* Dextrose 50 % in Water (Syg) 50 ML SYRINGE IVP PRN (06:06)
[2016-10-04] MEDS ORDERED: Dextrose Gel 15 GM PO PRN ×2 (06:06)
[2016-10-04] MEDS ORDERED: D5% in Water 1,000 ML IV PRN (06:06)
[2016-10-04 06:20] LABS: Prolactin 11.98 ng/mL (3.46-19.40)
[2016-10-04 08:09] LABS: VBG HCO3 27.9 mEq/L (21-27); VBG PH 7.42 pH Units (7.32-7.42)
[2016-10-04 08:23] LABS: Hemoglobin A1C 6.6 %
[2016-10-04 08:38] LABS: Bilirubin,Urine Negative (Negative); Blood,Urine Negative (Negative); Clarity,Urine Clear (Clear); Color,Urine Yellow (Yellow); Glucose,Urine (UA) Normal (Normal); Ketones,Urine Negative (Negative); Leukocyte Esterase,Urine Negative (Negative); Nitrite,Urine Negative (Negative); Protein,Urine Negative (Neg-Trace); Specific Gravity,Urine 1.022 (1.010-1.025); Urobilinogen,Urine Normal (Normal)
[2016-10-04 08:45] LABS: Thyroid Stimulating Hormone 0.001 mcIU/mL (0.350-4.840); Triiodothyronine (T3) Free 1.51 pg/mL (1.71-3.71)
[2016-10-04] MEDS ORDERED: Aspirin 81 MG TAB.CHEW PO SCH (09:00)
[2016-10-04] MEDS ORDERED: Hydrocortisone 10 MG TABLET PO SCH (09:00)
[2016-10-04] MEDS: Insulin LISPRO 300 UNITS/3 ML VIAL SQ SCH ×4 (09:25→21:29)
--- NOTE | 2016-10-04 13:14 | Electrocardiograph Report ---
[address] [place], [place] [address] Test Date: 2016-10-04 Pat Name: [facility] Department: 104 Room: 3B41 Gender: M Psychiatry Adult Physician: : [id number] Requested By: David Carty Order Number: [id number] Reading MD: Steve Kang Measurements Intervals [place] Rate: 83 P: [place]: 0 QRS: 38 QRSD: 90 T: 38 QT: 375 QTc: 415 Interpretive Statements ATRIAL FIBRILLATION ABNORMAL RHYTHM ECG Electronically Signed On 10-04-2016 13:13:09 EDT by Steve Kang
[2016-10-04] MEDS: *HR* Metformin 500 MG TABLET PO SCH (16:26)
[2016-10-04] MEDS: Hydrocortisone 10 MG TABLET PO SCH (16:27)
--- NOTE | 2016-10-04 17:29 | Internal Med Progress Note ---
Date of Encounter: 10/04/16 Time of Encounter: 10:30 - Assessment and plan (1) TIA (transient ischemic attack) Current Visit: Yes Status: Acute Assessment and plan: Has not had an MRI of brain and head today. It shows no evidence of acute ischemic insult acute intracranial hemorrhage or mass lesion. Has chronic left posterior MC a distribution infarct chronic right cerebellar lacunar infarct. Minimal support cerebral chronic small vessel ischemic disease. 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 Patient is aware of the pituitary mass as it is affecting his thyroid. Patient also had an MRA of neck that showed no significant abnormality of the neck vessels. There is no other abnormality of the intracranial circulation. Patient does have right-sided deficits from prior CVA and requires significant amount of care in ambulating and daily activities from his . Last night she was assisting him into the bathroom when normally he can walk himself to get off the toilet. Last night he could not figure out how to do that, nor could he figure out where to put his hands on his walker to get back to the bed. She ended up putting him back on to the toilet and calling the squad. Patient appears to be back to normal this morning answers questions appropriately, smiles, and is interactive. He is to have an echocardiogram today however due to increased volume of that department it was not done and we were made aware that it would not be read until morning. She will stay overnight again. Manufacturing Specialist vital signs Monitor lab results Fall precautions Qualifiers: Transient cerebral ischemia type: unspecified Qualified Code(s): G45.9 - Transient cerebral ischemic attack, unspecified (2) CVA, old, hemiparesis Current Visit: Yes Status: Chronic Assessment and plan: Patient has right-sided deficits from prior CVA. He requires significant help at home with activities of daily living and ambulation from his . Fall precautions monitor patient closely (3) HTN (hypertension) Current Visit: Yes Status: Chronic Assessment and plan: Chronic. Patient has been normotensive today. We will continue home medications. Monitor vital signs and labs. Qualifiers: Hypertension type: essential hypertension Qualified Code(s): I10 - Essential (primary) hypertension (4) HLD (hyperlipidemia) Current Visit: Yes Status: Chronic Assessment and plan: Chronic. Will continue home medications. Qualifiers: Hyperlipidemia type: mixed hyperlipidemia Qualified Code(s): E78.2 - Mixed hyperlipidemia (5) Hearing deficit Current Visit: Yes Status: Chronic Assessment and plan: Chronic. Qualifiers: Laterality: bilateral Qualified Code(s): H91.93 - Unspecified hearing loss , bilateral (6) CKD (chronic kidney disease) stage 3, GFR 30-59 ml/min Current Visit: Yes Status: Chronic Assessment and plan: Creatinine just slightly elevated today at 1.26. We will continue to monitor labs. Avoid nephrotoxins Monitor labs Monitor vital signs (7) Type 2 diabetes mellitus Current Visit: Yes Status: Chronic Assessment and plan: A1c is 6.6, serum glucose almost at goal. Accu-Cheks before meals at bedtime Sliding-scale insulin Hold home antidiabetic medications Hepatic diet Qualifiers: Diabetes mellitus complication status: with unspecified complications Diabetes mellitus longterm insulin use: without longterm use Qualified Code( s): E11.8 - Type 2 diabetes mellitus with unspecified complications - Subjective Interval history: Patient is extremely hard of hearing and is at bedside. History and assessment completed by both. Patient is alert and awake, answers questions appropriately, and when he can hear questions is oriented. Patient was brought to the emergency department last night by his when he seemed like he could not follow her commands. He says he felt confused and feels like he does not remember part of what was going on. - Constitutional Vitals: Temp Pulse Resp BP Pulse Ox 97.9 F 69 18 119/66 98 10/04/16 15:39 10/04/16 15:39 10/04/16 15:39 10/04/16 15:39 10/04/16 15:39 General appearance: Present: cachectic, cooperative, mild distress, A&O X 3, answers questions appropriately - Head Head exam: Present: normal inspection - Eye Eye exam: Present: normal appearance, PERRL, conjuntiva pink - ENT ENT exam: Present: mucous membranes moist, normal exam - Neck Neck exam general surgery: Present: normal inspection. Absent: lymphadenopathy , tenderness - Respiratory Respiratory exam: Present: decreased breath sounds, CTAB. Absent: chest wall tenderness, rales, respiratory distress, rhonchi, wheezes, tachypnea - Cardiovascular Cardiovascular exam: Present: RRR, +S1, +S2. Absent: diastolic murmur, systolic murmur - GI/Abdominal GI/Abdominal exam: Present: distended, normal bowel sounds, soft. Absent: hepatomegaly, tenderness - Extremities Exam Extremities exam: Present: normal capillary refill, normal inspection, warm, radial pulses palpable and symetrical. Absent: full ROM, pedal edema, tenderness - Neurological Exam Neurological exam: Present: alert, oriented X3. Absent: strengths equal and symetr throughout Additional comments: Patient has right-sided deficits from prior CVA. Internal Medicine: Result - Labs CBC & Chem 7: 10/04/16 01:21 10/04/16 01:21 Labs: Cardiac Enzymes 10/04/16 10/04/16 10/04/16 Range/Units 04:21 10:13 16:21 Troponin I 0.01 0.00 0.00 (0-0.03) ng/mL Urine 10/04/16 Range/Units 08:30 Urine Color Yellow (Yellow) Urine Clarity Clear (Clear) Urine pH 6.0 (5.0-8.0) pH Units Ur Specific [place] 1.022 (1.010-1.025) Urine Protein Negative (Neg-Trace) mg/dL Urine Glucose (UA) Normal (Normal) mg/dL - ABG Interpretation ABG results: PT/INR, D-dimer PT 33.0 Seconds (9.4-12.1) H 10/04/16 03:54 - Impressions Impressions Brain MRI 10/04/16 04:04 IMPRESSION: No evidence of acute ischemic insult, acute intracranial hemorrhage, or mass lesion. Chronic left posterior MCA distribution infarct. Chronic right cerebellar lacunar infarct. Minimal cerebral chronic small vessel ischemic disease. 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 Mild mass effect on the optic chiasm. D/ / Reyes Car MD / Reyes Car MD Interpreting Provider: Reyes Car MD Head MRA 10/04/16 04:04 IMPRESSION: There is a previous area of injury or infarct in the posterior left parietal lobe with cortical laminar necrosis. There is lack of M3 branches in this location. No other abnormality of the intracranial circulation. D/ / 10/04/2016 12:49:25 Arielle Harry MD / florecita Interpreting Provider: Arielle Harry MD Neck MRA 10/04/16 04:04 IMPRESSION: No significant abnormality of the neck vessels. D/ / 10/04/2016 12:53:14 Arielle Harry MD / florecita Interpreting Provider: Arielle Harry MD - VTE Documentation of Mechanical Device: Graduated compression elastic hosiery Consult Discharge Plan - Plan
[2016-10-04] MEDS ORDERED: Warfarin perPT PO PRN (18:00)
[2016-10-04] MEDS ORDERED: *HR* Warfarin 5 MG TABLET PO SCH ×2 (18:00)
[2016-10-04] MEDS ORDERED: *HR* Warfarin 2.5 MG TABLET PO ONE (18:00)
[2016-10-04] MEDS: levETIRAcetam 250 MG TABLET PO SCH (19:01)
[2016-10-05] MEDS: 0.9 % Sodium Chloride 1,000 ML IVC SCH (05:09)
[2016-10-05] MEDS: levETIRAcetam 250 MG TABLET PO SCH ×2 (05:10→20:34)
[2016-10-05 05:37] LABS: Hematocrit 38.9 % (37.5-50.1); Hemoglobin 13.3 g/dL (12.9-16.9); Mean Corpuscular HGB Conc 34.2 g/dL (31.6-35.5); Mean Corpuscular Hemoglobin 30.4 pg (28.0-33.3); Mean Corpuscular Volume 88.8 fL (83.0-100.0); Platelet Count 242 K/mcL (140-400); Red Blood Count 4.38 M/mcL (4.19-5.50); Red Cell Distribution Width 12.8 % (11.5-14.5)
[2016-10-05 05:39] LABS: INR 2.3; Prothrombin Time 25.5 Seconds (9.4-12.1)
[2016-10-05 05:41] LABS: Activated Partial Thrombo Time 37.6 Seconds (26.0-36.0)
[2016-10-05 05:50] LABS: BUN/Creatinine Ratio 15 (6-26); Blood Urea Nitrogen 17 mg/dL (8-26); Calcium 8.7 mg/dL (8.6-10.8); Carbon Dioxide 24 mEq/L (19-29); Chloride 105 mEq/L (98-109); Glucose 104 mg/dL (70-99); Osmolality,Calculated 290 (280-300); Potassium 4.4 mEq/L (3.5-4.5); Sodium 139 mEq/L (136-145); eGFR For African Americans > 60 (> 60); eGFR For Non-African Americans > 60 (> 60)
[2016-10-05] MEDS: Insulin LISPRO 300 UNITS/3 ML VIAL SQ SCH ×4 (08:32→20:25)
[2016-10-05] MEDS: Cholecalciferol (D-3) 1,000 UNIT TABLET PO SCH (09:06)
[2016-10-05] MEDS: Aspirin Enteric Coated 81 MG Tablet PO SCH (09:07)
[2016-10-05] MEDS: Hydrocortisone 10 MG TABLET PO SCH (09:07)
[2016-10-05] MEDS: Multivit/Ca/Min/Fe/FA 1 TAB TABLET PO SCH (09:07)
[2016-10-05] MEDS: *HR* Glimepiride 2 MG TABLET PO SCH (09:08)
[2016-10-05] MEDS: *HR* Metformin 500 MG TABLET PO SCH ×2 (09:11→18:49)
--- NOTE | 2016-10-05 09:22 | ECHO - Doppler Report ---
Echo with Saline Contrast Name: Fredy Carter Date of Study: 10/04/2016 Date: 1935 Ht: 69.0 in Medical Record#: [id number] Age: 81 Wt: 210.0 lb Gender: Male BSA: 2.11 Order #: [id number] Location: [facility] Room #: [id number] Reading Physician: Meme Almanzar DO Steward/Stewardess Third: Frances Mcdowell RVT, [facility] Ordering Physician: Wes Case MD Primary Physician: None Indications: Transient Ischemic Attack Impressions: Technically challenging study with suboptimal windows. Overall, LV systolic function appears normal (as seen in Apical 4-CH view). Not all segments were well visualized. RV is not well visualized. Mild aortic regurgitation. Mild tricuspid regurgitation. Mild pulmonic regurgitation. No pulmonary hypertension. Left Ventricular Wall Motion: Rest Echo Findings The apex, apical inferior, mid inferior, basal inferior, apical anterior, mid anterior, basal anterior, mid anterior septal, mid inferior lateral, basal anterior septal and basal inferior lateral seymour were not visualized. All other wall segments showed normal motion. Findings: Study Quality * Technically sub-optimal due to body habitus. ECG Findings * Atrial fibrillation. Left Ventricle * Indeterminate diastolic function. * Unable to evaluate segmental wall motion due to technical quality. * Normal LV systolic function. Aortic Valve * Mild aortic regurgitation. * Aortic valve not well visualized. * No aortic stenosis. Mitral Valve * No mitral regurgitation. * No mitral stenosis. * Normal mitral valve structure. * Mildly calcified mitral valve leaflets. Tricuspid Valve * Tricuspid valve not well visualized. * Mild tricuspid regurgitation. Pulmonic Valve * Pulmonic valve is not well visualized. * No pulmonic stenosis. * Mild pulmonic regurgitation. Pulmonary Artery * Pulmonary artery not well visualized. Right Atrium * Normal right atrial size. Left Atrium * Mildly dilated left atrium. Right Ventricle * Not well evaluated. Pericardium * There is no pericardial effusion present. Aorta * Not well visualized. Interatrial Septum * Interatrial septum not well evaluated. IVC * The IVC is not well evaluated. History Diabetes Hypercholesteremia Family History of CAD Contrast: Agitated saline 20 ml. Measurements: BP: 128/ 80 2D Normal Values RVIDd: 2.70 cm <2.7 cm IVSd: 1.20 cm 0.6 - 1.0 cm LVIDd: 3.20 cm 3.7 - 5.6 cm LVPWd: 1.20 cm 0.6 - 1.1 cm LVIDs: 2.10 cm 1.5 - 3.6 cm AO: 2.70 cm < 4.0 cm LA: 4.40 cm 2.0 - 4.0cm %FS: 34.40 cm >25 % LA volume: 55 Mitral Valve Dec Time:173.00 msec Peak E:.97 m/sec Peak A:.54 m/sec E/A Ratio:1.8 Peak E' Lat Deep:11.3 cm/s Peak E' Med Deep:7.7 cm/s E/E' Lat Ratio:8.6 E/E' Med Ratio:12.6 Aortic Valve AI pressure Half-time: 725.00 msec Tricuspid Valve TV Regurg Peak Grad: 19.00mmHg TV Regurg Peak Deep: 2.20m/sec Updated by Meme Almanzar on 10/05/2016 9:16:33 AM electronically signed on 10/05/2016 9:17:54 AM with status of Final Wall Motion Castro: 1=Normal, 2=Hypokinesis, 3=Akinesis, 4=Dyskinesis, 5=Aneurysmal, 6=Hyperkinetic, X=Not Visualized (Blank)=Missing
[2016-10-05 10:36] LABS: Bilirubin,Urine Negative (Negative); Blood,Urine Negative (Negative); Clarity,Urine Clear (Clear); Color,Urine Yellow (Yellow); Glucose,Urine (UA) Normal (Normal); Ketones,Urine Negative (Negative); Leukocyte Esterase,Urine Negative (Negative); Nitrite,Urine Negative (Negative); Protein,Urine Negative (Neg-Trace); Specific Gravity,Urine 1.013 (1.010-1.025); Urobilinogen,Urine Normal (Normal)
[2016-10-05] MEDS ORDERED: *HR* LORazepam 2 MG/ML VIAL IVP ONE (11:48)
[2016-10-05] MEDS: *HR* Warfarin 5 MG TABLET PO SCH (20:34)
[2016-10-06] MEDS: 0.9 % Sodium Chloride 1,000 ML IVC SCH ×3 (01:20→21:46)
[2016-10-06] MEDS: levETIRAcetam 250 MG TABLET PO SCH ×2 (06:32→16:13)
[2016-10-06 06:46] LABS: Basophils % 0.3 %; Eosinophils # 0.3 K/mcL (0.0-0.6); Eosinophils % 3.8 %; Hematocrit 39.2 % (37.5-50.1); Hemoglobin 13.3 g/dL (12.9-16.9); Immature Granulocytes % 0.3 % (0-4); Lymphocytes # 2.1 K/mcL (0.6-4.6); Lymphocytes % 31.4 %; Mean Corpuscular HGB Conc 33.9 g/dL (31.6-35.5); Mean Corpuscular Hemoglobin 29.7 pg (28.0-33.3); Mean Corpuscular Volume 87.5 fL (83.0-100.0); Mean Platelet Volume 9.9 fL (9.4-12.4); Monocytes # 0.5 K/mcL (0.0-1.3); Monocytes % 7.8 %; Neutrophils # 3.8 K/mcL (1.6-8.9); Platelet Count 243 K/mcL (140-400); Red Blood Count 4.48 M/mcL (4.19-5.50); Red Cell Distribution Width 12.6 % (11.5-14.5); Segmented Neutrophils % 56.4 %
[2016-10-06 06:51] LABS: Prothrombin Time 22.1 Seconds (9.4-12.1)
[2016-10-06 06:53] LABS: Activated Partial Thrombo Time 32.8 Seconds (26.0-36.0)
[2016-10-06 07:10] LABS: BUN/Creatinine Ratio 15 (6-26); Blood Urea Nitrogen 17 mg/dL (8-26); Calcium 8.5 mg/dL (8.6-10.8); Carbon Dioxide 27 mEq/L (19-29); Chloride 105 mEq/L (98-109); Glucose 111 mg/dL (70-99); Osmolality,Calculated 292 (280-300); Potassium 3.9 mEq/L (3.5-4.5); Sodium 140 mEq/L (136-145); eGFR For African Americans > 60 (> 60); eGFR For Non-African Americans > 60 (> 60)
[2016-10-06] MEDS: Hydrocortisone 10 MG TABLET PO SCH ×3 (07:44→16:12)
--- NOTE | 2016-10-06 09:36 | Internal Med Progress Note ---
Date of Encounter: 10/06/16 Time of Encounter: 09:34 - Assessment and plan (1) TIA (transient ischemic attack) Current Visit: Yes Status: Acute Assessment and plan: MRI was negative for any acute stroke. There is evidence of chronic vascular disease in the brain though. Echocardiogram was unremarkable for any clot. Qualifiers: Transient cerebral ischemia type: unspecified Qualified Code(s): G45.9 - Transient cerebral ischemic attack, unspecified (2) Acute on chronic alteration in mental status Current Visit: Yes Status: Acute Assessment and plan: He is somnolent this morning and appears to be back to baseline by his 's report. However I took a fair amount of time to be able to get him to awaken. We will get occupational therapy consult done and has a history of dysarthria will get speech therapy consult as well. Because his current status does not believe she can take care of him at home from a standpoint of his overall debility and some issues with his worsening mental status (3) CVA, old, dysarthria Current Visit: Yes Status: Chronic Assessment and plan: Speech therapy consult (4) HTN (hypertension) Current Visit: Yes Status: Chronic Qualifiers: Hypertension type: essential hypertension Qualified Code(s): I10 - Essential (primary) hypertension (5) CKD (chronic kidney disease) stage 3, GFR 30-59 ml/min Current Visit: Yes Status: Chronic (6) At risk for accident in home Current Visit: Yes Status: Acute - Time Spent With Patient 25 - 35 minutes - Subjective Interval history: He is somewhat somnolent this morning. He awakens easily. He does not know where he is. He tells me he is "at home ". He has had a physical therapy assessment but does not have an occupational therapist assessment yet either. - Constitutional Vitals: Temp Pulse Resp BP Pulse Ox 98.1 F 79 18 124/76 96 10/06/16 07:47 10/06/16 07:47 10/06/16 07:47 10/06/16 07:47 10/06/16 07:47 General appearance: Present: A&O X 0, cooperative, mild distress, A&O X 3, answers questions appropriately - Respiratory Respiratory exam: Present: decreased breath sounds, CTAB. Absent: accessory muscle use, chest wall tenderness, respiratory distress, wheezes - Cardiovascular Cardiovascular exam: Present: RRR, +S1, +S2 Internal Medicine: Result - Labs CBC & Chem 7: 10/06/16 05:35 10/06/16 05:35 Labs: Short CBC 10/06/16 Range/Units 05:35 WBC 6.8 (4.3-11.1) K/mcL Hgb 13.3 (12.9-16.9) g/dL Hct 39.2 (37.5-50.1) % Plt Count 243 (140-400) K/mcL Neutrophils # 3.8 (1.6-8.9) K/mcL BMP 10/06/16 05:35 Sodium 140 Potassium 3.9 Chloride 105 Carbon Dioxide 27 BUN 17 Creatinine 1.10 Glucose 111 H Calcium 8.5 L - ABG Interpretation ABG results: PT/INR, D-dimer PT 22.1 Seconds (9.4-12.1) H 10/06/16 05:35 - VTE Documentation of Mechanical Device: Graduated compression elastic hosiery Consult Discharge Plan - Plan Referrals: Chrissy Welsh CNP [Primary Care Provider] - 10/13/16 10:30 am
[2016-10-06] MEDS: Insulin LISPRO 300 UNITS/3 ML VIAL SQ SCH ×4 (09:54→20:51)
[2016-10-06] MEDS: *HR* Metformin 500 MG TABLET PO SCH ×2 (12:20→16:12)
[2016-10-06] MEDS: Aspirin Enteric Coated 81 MG Tablet PO SCH (12:21)
[2016-10-06] MEDS: *HR* Glimepiride 2 MG TABLET PO SCH (12:21)
[2016-10-06] MEDS: Cholecalciferol (D-3) 1,000 UNIT TABLET PO SCH (12:22)
[2016-10-06] MEDS: Multivit/Ca/Min/Fe/FA 1 TAB TABLET PO SCH (12:22)
[2016-10-06] MEDS: *HR* Warfarin 5 MG TABLET PO SCH (16:12)
--- NOTE | 2016-10-06 21:35 | Internal Med Progress Note ---
Date of Encounter: 10/05/16 Time of Encounter: 10:00 - Assessment and plan (1) TIA (transient ischemic attack) Current Visit: Yes Status: Acute Assessment and plan: Patient's MRA of the head showed previous area of injury in the posterior left parietal lobe with cortical laminar necrosis there is no other abnormality of the intracranial circulation. MRA of the neck showed no significant abnormalities the neck vessels. MRI showed no evidence of acute ischemic insult intracranial hemorrhage or mass lesion. Just chronic changes from the prior test. 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 His echocardiogram showed LV systolic function appears normal, although this was a suboptimal test and is reported as being technically challenging. RV was not well visualized, mild aortic regurgitation, mild tricuspid regurgitation, and mild pulmonic regurgitation. We will continue to monitor the patient based on his mental status change. Telemetry Fall precautions Monitor labs Monitor vital signs Qualifiers: Transient cerebral ischemia type: unspecified Qualified Code(s): G45.9 - Transient cerebral ischemic attack, unspecified (2) Mental status change Current Visit: Yes Status: Acute Assessment and plan: Patient is only alert to name this morning. Prior examination patient was able to state the month and where he was. states that his mental status change began about 9:30 PM on the . She says very similar to how he responded to her the night she brought him to the emergency department. His labs are all within normal limits, and all of his TIA workup was negative for acute intracranial hemorrhage, infarct, etc. I did speak with the patient's regarding how she felt she could care for him at home. She states that she does not feel like he is safe at home or that she can provide proper care for him. I did speak to the social welfare administrator regarding possible ECF placement. He already has PT and OT consults in place. We will continue to monitor the patient for further changes and continue to monitor his labs and vital signs. Qualifiers: Altered mental status type: unspecified Qualified Code(s): R41.82 - Altered mental status, unspecified (3) CVA, old, hemiparesis Current Visit: Yes Status: Chronic Assessment and plan: Patient has prior right-sided deficits from past CVA. Plan as above. (4) HTN (hypertension) Current Visit: Yes Status: Chronic Assessment and plan: Chronic. Stable. Will continue home medications. Qualifiers: Hypertension type: essential hypertension Qualified Code(s): I10 - Essential (primary) hypertension (5) HLD (hyperlipidemia) Current Visit: Yes Status: Chronic Assessment and plan: Stable. Chronic. Will continue current medications. Qualifiers: Hyperlipidemia type: mixed hyperlipidemia Qualified Code(s): E78.2 - Mixed hyperlipidemia (6) Hearing deficit Current Visit: Yes Status: Chronic Assessment and plan: Chronic Qualifiers: Laterality: bilateral Qualified Code(s): H91.93 - Unspecified hearing loss , bilateral (7) CKD (chronic kidney disease) stage 3, GFR 30-59 ml/min Current Visit: Yes Status: Chronic Assessment and plan: Creatinine 1.13 and within normal limits. Avoid nephrotoxins Continue to monitor patient and labs. (8) Type 2 diabetes mellitus Current Visit: Yes Status: Chronic Assessment and plan: Accu-Cheks have been slightly elevated today. A1c 6.6. Continue diabetic diet Continue Accu-Cheks before meals at bedtime Continue sliding scale insulin. Qualifiers: Diabetes mellitus complication status: with unspecified complications Diabetes mellitus long term acute care registered nurse insulin use: without senior care use Qualified Code( s): E11.8 - Type 2 diabetes mellitus with unspecified complications - Time Spent With Patient less than 15 minutes - Subjective Interval history: This is a late entry from an examination on 10/05/2016. Patient was unable to answer questions appropriately. His states that he has started having mental status changes last night at about 9:30 PM. Patient was unable to answer where he was, the year, or the month. Previously he had been able to do so. His stated that this is similar to how he acted the night she brought him to the emergency room for his weakness and mental status changes. He seemed restless, and was attempting to get out of the bed. - Constitutional Vitals: Temp Pulse Resp BP Pulse Ox 98.1 F 88 16 131/73 95 10/06/16 20:21 10/06/16 20:21 10/06/16 20:21 10/06/16 20:21 10/06/16 20:21 General appearance: Present: cooperative, A&O X 1, mild distress. Absent: A&O X 3, answers questions appropriately Exam: A shunt was alert and a only. - Head Head exam: Present: normal inspection - Eye Eye exam: Present: normal appearance, conjuntiva pink - ENT ENT exam: Present: mucous membranes moist, normal exam - Neck Neck exam general surgery: Present: normal inspection. Absent: lymphadenopathy - Respiratory Respiratory exam: Present: decreased breath sounds, CTAB. Absent: rales, respiratory distress, rhonchi, stridor, wheezes - Cardiovascular Cardiovascular exam: Present: RRR, +S1, +S2 - Expanded Cardiovascular Exam Peripheral pulses: 1+: Dorsalis Pedis (L) PM, Dorsalis Pedis (R) PM - GI/Abdominal GI/Abdominal exam: Present: distended, soft. Absent: tenderness - Extremities Exam Extremities exam: Present: normal capillary refill, normal inspection, warm, radial pulses palpable and symetrical. Absent: joint swelling, pedal edema, tenderness - Neurological Exam Neurological exam: Present: alert. Absent: oriented X3, strengths equal and symetr throughout, speech deficit Additional comments: Patient has right-sided deficits from prior CVA. No new deficits noted. - Psychiatric Psychiatric exam: Present: agitated Additional comments: She was laughing inappropriately. Patient appeared to be slightly agitated and trying to get out of the bed. Patient was argumentative with when she stated that he needed to stay in the bed. Internal Medicine: Result - Labs CBC & Chem 7: 10/06/16 05:35 10/06/16 05:35 Labs: Short CBC 10/06/16 Range/Units 05:35 WBC 6.8 (4.3-11.1) K/mcL Hgb 13.3 (12.9-16.9) g/dL Hct 39.2 (37.5-50.1) % Plt Count 243 (140-400) K/mcL Neutrophils # 3.8 (1.6-8.9) K/mcL BMP 10/06/16 05:35 Sodium 140 Potassium 3.9 Chloride 105 Carbon Dioxide 27 BUN 17 Creatinine 1.10 Glucose 111 H Calcium 8.5 L - ABG Interpretation ABG results: PT/INR, D-dimer PT 22.1 Seconds (9.4-12.1) H 10/06/16 05:35 - VTE Documentation of Mechanical Device: Graduated compression elastic hosiery Consult Discharge Plan - Plan Referrals: Chrissy Welsh CNP [Primary Care Provider] - 10/13/16 10:30 am
[2016-10-07] MEDS: levETIRAcetam 250 MG TABLET PO SCH ×2 (06:12→17:22)
[2016-10-07] MEDS: Insulin LISPRO 300 UNITS/3 ML VIAL SQ SCH ×4 (08:04→19:59)
[2016-10-07] MEDS: Cholecalciferol (D-3) 1,000 UNIT TABLET PO SCH (08:40)
[2016-10-07] MEDS: *HR* Metformin 500 MG TABLET PO SCH ×2 (08:40→17:21)
[2016-10-07] MEDS: Multivit/Ca/Min/Fe/FA 1 TAB TABLET PO SCH (08:41)
[2016-10-07] MEDS: Hydrocortisone 10 MG TABLET PO SCH ×2 (08:41→17:22)
[2016-10-07] MEDS: *HR* Glimepiride 2 MG TABLET PO SCH (08:41)
[2016-10-07] MEDS: Aspirin Enteric Coated 81 MG Tablet PO SCH (08:42)
[2016-10-07] MEDS: 0.9 % Sodium Chloride 1,000 ML IVC SCH ×3 (09:05→17:25)
[2016-10-07 09:30] LABS: INR 2.2; Prothrombin Time 24.5 Seconds (9.4-12.1)
[2016-10-07 09:32] LABS: Activated Partial Thrombo Time 37.9 Seconds (26.0-36.0)
[2016-10-07] MEDS: *HR* Warfarin 5 MG TABLET PO SCH (17:21)
[2016-10-08 04:32] LABS: INR 2.5; Prothrombin Time 27.8 Seconds (9.4-12.1)
[2016-10-08 04:34] LABS: Activated Partial Thrombo Time 36.3 Seconds (26.0-36.0)
[2016-10-08] MEDS: levETIRAcetam 250 MG TABLET PO SCH (06:10)
[2016-10-08] MEDS: Hydrocortisone 10 MG TABLET PO SCH (08:57)
[2016-10-08] MEDS: Aspirin Enteric Coated 81 MG Tablet PO SCH (08:57)
[2016-10-08] MEDS: *HR* Metformin 500 MG TABLET PO SCH (08:58)
[2016-10-08] MEDS: Cholecalciferol (D-3) 1,000 UNIT TABLET PO SCH (08:58)
[2016-10-08] MEDS: *HR* Glimepiride 2 MG TABLET PO SCH (08:58)
[2016-10-08] MEDS: Multivit/Ca/Min/Fe/FA 1 TAB TABLET PO SCH (08:58)
[2016-10-08] MEDS: Insulin LISPRO 300 UNITS/3 ML VIAL SQ SCH ×2 (08:59→12:28)
[2016-10-08 12:00] VITALS: BP 132/88
--- NOTE | 2016-10-08 12:59 | Internal Med Progress Note ---
Date of Encounter: 10/07/16 (late entry seen/examined 10/07/2016) Time of Encounter: 11:15 - Assessment and plan (1) TIA (transient ischemic attack) Current Visit: Yes Status: Acute Assessment and plan: Evidence of left posterior MCA distribution infarct, chronic right cerebellar lacunar infarct and minimal cerebral chronic small vessel ischemic disease Qualifiers: Transient cerebral ischemia type: other Qualified Code(s): G45.8 - Other transient cerebral ischemic attacks and related syndromes (2) Acute on chronic alteration in mental status Current Visit: Yes Status: Acute (3) CVA, old, dysarthria Current Visit: Yes Status: Chronic (4) HTN (hypertension) Current Visit: Yes Status: Chronic Qualifiers: Hypertension type: essential hypertension Qualified Code(s): I10 - Essential (primary) hypertension (5) CKD (chronic kidney disease) stage 3, GFR 30-59 ml/min Current Visit: Yes Status: Chronic (6) At risk for accident in home Current Visit: Yes Status: Acute - Subjective Interval history: He is somewhat somnolent this morning. He awakens easily. He does not know where he is. He tells me he is "at home ". - Constitutional Vitals: Temp Pulse Resp BP Pulse Ox 97.6 F 79 16 132/88 98 10/08/16 11:58 10/08/16 11:58 10/08/16 11:58 10/08/16 11:58 10/08/16 11:58 General appearance: Present: cachectic, cooperative, A&O X 3, answers questions appropriately - Respiratory Respiratory exam: Present: CTAB - Cardiovascular Cardiovascular exam: Present: RRR - Neurological Exam Neurological exam: Present: altered (confused ), no focal deficits Internal Medicine: Result - Labs CBC & Chem 7: 10/06/16 05:35 10/06/16 05:35 - ABG Interpretation ABG results: PT/INR, D-dimer PT 27.8 Seconds (9.4-12.1) H 10/08/16 04:00 - VTE Documentation of Mechanical Device: Graduated compression elastic hosiery Consult Discharge Plan - Plan Referrals: Chrissy Welsh CNP [Primary Care Provider] - 10/13/16 10:30 am
--- NOTE | 2016-10-08 13:07 | Discharge Summary ---
Date of Encounter: 10/08/16 (n) Time of Encounter: 13:01 - Discharge Diagnosis (1) TIA (transient ischemic attack) Priority: Primary Status: Acute Qualifiers: Transient cerebral ischemia type: other Qualified Code(s): G45.8 - Other transient cerebral ischemic attacks and related syndromes (2) Acute on chronic alteration in mental status Priority: Primary Status: Resolved (3) CVA, old, dysarthria Priority: Primary Status: Chronic (4) HTN (hypertension) Priority: Secondary Status: Chronic Qualifiers: Hypertension type: essential hypertension Qualified Code(s): I10 - Essential (primary) hypertension (5) CKD (chronic kidney disease) stage 3, GFR 30-59 ml/min Priority: Secondary Status: Chronic (6) At risk for accident in home Priority: Primary Status: Acute - Discharge Medications Home Medications: Aspirin [Lo-Dose Aspirin EC] 81 mg PO DAILY 10/04/16 [History] Atenolol [Tenormin] 12.5 mg PO DAILY 10/04/16 [History] Cholecalciferol (Vitamin D3) [Vitamin D3] 2,000 unit PO DAILY 10/04/16 [History] Citalopram Hydrobromide [Citalopram HBr] 10 mg PO DAILY 10/04/16 [History] Ferrous Sulfate [Iron] 325 mg PO BID 10/04/16 [History] Glimepiride [Amaryl] 2 mg PO DAILY 10/04/16 [History] Hydrocortisone [Cortef] 10 mg PO QPM 10/04/16 [History] Hydrocortisone [Cortef] 15 mg PO QAM 10/04/16 [History] LevETIRAcetam [Keppra] 500 mg PO Q12HR 10/04/16 [History] Levothyroxine [Synthroid] 100 mcg PO DAILY 10/04/16 [History] Lovastatin [Altoprev] 20 mg PO DAILY 10/04/16 [History] Multivit-Min/FA/Lycopen/Lutein [Adults 50+ Multivitamin Tablet] 1 tab PO DAILY 10/04/16 [History] Omeprazole [PriLOSEC] 20 mg PO BIDAC 10/04/16 [History] Warfarin [Coumadin] 5 mg PO QPM 10/04/16 [History] Acetaminophen [Tylenol] 650 mg PO Q6HR PRN #0 tablet 10/08/16 [Rx] Docusate [Colace] 100 mg PO BID PRN #0 capsule 10/08/16 [Rx] Metformin [Glucophage] 1,000 mg PO BIDWM tablet 10/08/16 [Rx] Allergies/Adverse Reactions: Allergies Hydromorphone [From Dilaudid] Allergy (Verified 05/13/16 11:54) See Comments Date of admission: 10/05/16 19:38 Primary care physician: Chrissy Welsh CNP Consults: 10/06/16 09:43 Consult to Speech Therapy [CONS] Routine Comment: Evaluate, develop and implement POC Reason for Consult: history of recent TIA and hx. of dysarthria Call Completed: No - Patient Status Disposition: Transfer SNF Condition: Good Functional capacity at discharge: uses cane/walker Overall status at discharge: patient is not back to baseline - Discharge Instructions Instructions: Transient Ischemic Attack (DC) Follow Up With: Chrissy Welsh CNP [Primary Care Provider] - 10/13/16 10:30 am Forms: ED Satisfaction Letter - Diet and Activity Activity: as per physical therapy Diet: diabetic diet, low fat, low cholesterol Hospital course: Mr. Carter is a 81 year old male admitted to the hospital with history of confusion and history of previous strokes. He brought in by his because he is having acute mental status changes and she was not able to manage him at home. Besides he alteration in sensorium he seemed to have some weakness and generalized inability to get up. He has some right sided hemiparesis some dysarthria and dysphagia in the past. She will try to get him out of the bathroom and was not able to do it and had to call squad for some help as well. He is known to have chronic atrial fibrillation and he was brought to the hospital for evaluation and treatment. He was still confused but returned to his normal baseline mental status by about day 3 of the hospitalization. His states this is the way he usually is. He started showing some improvement strength in the course of the stay as well. However, even with him returning to his "baseline" there are some concerns in regards to risk for his care at home. On physical therapy evaluation he has poor static standing abilities he has poor dynamic standing balance abilities. He required tactile cueing and ordered even just walk. Obviously he needs some physical therapy and occupational therapy to improve with this His type 2 diabetes mellitus. His diabetes was well-controlled for the length of his hospital stay. He had some elevated hypertension on admission. Blood pressure became controlled shortly after admission. He may be discharged for rehabilitative stay. He does have some baseline dementia on top of the issues from his previous CVA stroke disease. Most of this does appear to be chronic although cannot rule out a small acute infarct causing some of the problems that he had during the course of the stay - Time Spent with Patient Total time spent providing and/or coordinating discharge services: - Constitutional Vitals: Temp Pulse Resp BP Pulse Ox 97.6 F 79 16 132/88 98 10/08/16 11:58 10/08/16 11:58 10/08/16 11:58 10/08/16 11:58 10/08/16 11:58 General appearance: Present: cachectic, cooperative, A&O X 1, answers questions appropriately - Respiratory Respiratory exam: Present: CTAB - Cardiovascular Cardiovascular exam: Present: irregular rhythm - VTE Documentation of Mechanical Device: Graduated compression elastic hosiery
--- NOTE | 2016-10-08 13:17 | Physician Discharge Referral ---
[facility] Referral Info [facility] Provider in Charge: Odilon Provider in Charge after Transfer: PCP Institutional Level of Care: Skilled (PT, OT) - Diagnosis (1) TIA (transient ischemic attack) Status: Acute (2) Acute on chronic alteration in mental status Status: Resolved (3) CVA, old, dysarthria Status: Chronic (4) HTN (hypertension) Status: Chronic (5) CKD (chronic kidney disease) stage 3, GFR 30-59 ml/min Status: Chronic (6) At risk for accident in home Status: Acute - Transfer Medications Home Medications: Aspirin [Lo-Dose Aspirin EC] 81 mg PO DAILY 10/04/16 [History] Atenolol [Tenormin] 12.5 mg PO DAILY 10/04/16 [History] Cholecalciferol (Vitamin D3) [Vitamin D3] 2,000 unit PO DAILY 10/04/16 [History] Citalopram Hydrobromide [Citalopram HBr] 10 mg PO DAILY 10/04/16 [History] Ferrous Sulfate [Iron] 325 mg PO BID 10/04/16 [History] Glimepiride [Amaryl] 2 mg PO DAILY 10/04/16 [History] Hydrocortisone [Cortef] 10 mg PO QPM 10/04/16 [History] Hydrocortisone [Cortef] 15 mg PO QAM 10/04/16 [History] LevETIRAcetam [Keppra] 500 mg PO Q12HR 10/04/16 [History] Levothyroxine [Synthroid] 100 mcg PO DAILY 10/04/16 [History] Lovastatin [Altoprev] 20 mg PO DAILY 10/04/16 [History] Multivit-Min/FA/Lycopen/Lutein [Adults 50+ Multivitamin Tablet] 1 tab PO DAILY 10/04/16 [History] Omeprazole [PriLOSEC] 20 mg PO BIDAC 10/04/16 [History] Warfarin [Coumadin] 5 mg PO QPM 10/04/16 [History] Acetaminophen [Tylenol] 650 mg PO Q6HR PRN #0 tablet 10/08/16 [Rx] Docusate [Colace] 100 mg PO BID PRN #0 capsule 10/08/16 [Rx] Metformin [Glucophage] 1,000 mg PO BIDWM tablet 10/08/16 [Rx] Allergies/Adverse Reactions: Allergies Hydromorphone [From Dilaudid] Allergy (Verified 05/13/16 11:54) See Comments - Respiratory Orders Smoking Cessation: Smoking cessation has been advised. For more information, call the [place] Tobacco Quit Line at 6-741-JVANNOW. CERTIFICATION: I certify that the transfer of the above named patient to an Extended Care Facility is necessary for the continuing treatment of the diagnosis listed. The above information is true and accurate reflection of patient's current condition. Confidential - Redisclosure prohibited without a patient's written consent.
[2016-10-08] MEDS ORDERED: *HR* Warfarin 2.5 MG TABLET PO ONE (18:00)
[2016-10-09] MEDS ORDERED: *HR* Warfarin 5 MG TABLET PO SCH (18:00)
== END 2016-10-08 15:40 | DRG 69 ==
LOC: EMEROO 00:24 → 3BNU 00:24
PROVIDERS: ADMIT Pediatrics; ATTEND Registered Nurse

== ENCOUNTER 2017-05-03 14:34 | Inpatient (IN) ==
[2017-05-03 16:43] LABS: Basophils % 0.3 %; Eosinophils # 0.1 K/mcL (0.0-0.6); Eosinophils % 1.3 %; Hematocrit 39.3 % (37.5-50.1); Hemoglobin 13.7 g/dL (12.9-16.9); Immature Granulocytes % 0.3 % (0-4); Lymphocytes # 1.4 K/mcL (0.6-4.6); Lymphocytes % 16.6 %; Mean Corpuscular HGB Conc 34.9 g/dL (31.6-35.5); Mean Corpuscular Hemoglobin 31.2 pg (28.0-33.3); Mean Corpuscular Volume 89.5 fL (83.0-100.0); Mean Platelet Volume 9.5 fL (9.4-12.4); Monocytes # 0.5 K/mcL (0.0-1.3); Neutrophils # 6.5 K/mcL (1.6-8.9); Platelet Count 206 K/mcL (140-400); Red Blood Count 4.39 M/mcL (4.19-5.50); Red Cell Distribution Width 13.2 % (11.5-14.5); Segmented Neutrophils % 75.5 %
[2017-05-03 16:58] LABS: Alanine Aminotransferase 18 Units/L (0-55); Albumin 3.1 g/dL (3.5-5.0); Albumin/Globulin Ratio 0.8 (1.1-2.2); Alkaline Phosphatase 71 Units/L (38-126); Aspartate Amino Transferase 18 Units/L (5-34); BUN/Creatinine Ratio 13 (6-26); Bilirubin,Total 0.3 mg/dL (0.2-1.2); Blood Urea Nitrogen 17 mg/dL (8-26); Calcium 8.8 mg/dL (8.6-10.8); Carbon Dioxide 24 mEq/L (19-29); Chloride 104 mEq/L (98-109); Globulin 3.8 g/dL (2.4-3.5); Glucose 253 mg/dL (70-99); Osmolality,Calculated 294 (280-300); Potassium 3.9 mEq/L (3.5-4.5); Sodium 137 mEq/L (136-145); Total Protein 6.9 g/dL (6.0-8.3); eGFR For African Americans > 60 (> 60); eGFR For Non-African Americans 53 (> 60)
--- NOTE | 2017-05-03 17:20 | Emergency Department Note ---
START Narrative - START START: I examined this patient and my medical decision-making was reviewed with the Resident Physician. I agree with the documented findings, disposition and treatment plan as described except to the extent set forth below. 82 year old male who has had increased progessive weakness over the past two weeks wiht a previous history of CVA which have left some known right sdied defecits. Yoon had a weakness spell today which was descibrd has his bilateral legs giving out and he landed on his right leg/knee with increased pain and inability to bear weight. Yoon has had UTIs in the past but had a UA about 2 weeks ago which came back negative. Yoon denies syncope. We will do a generalized weakness/AMS status workup on patient. cassy admit to medicine
[2017-05-03 17:23] LABS: Thyroid Stimulating Hormone 0.027 mcIU/mL (0.350-4.840)
--- NOTE | 2017-05-03 17:28 | Emergency Department Note ---
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 His states that he has had increasing weakness over the past week and has been unable to walk his normal distances. When they were walking to the vehicle today she states the he fell on his knee, but he did not hit his head as she caught him. He was not able to bear weight on his right lower extremity following the fall. Patient has not been to physical or occupational therapy in over a year. Denies chest pain, dyspnea, abd pain, fever, or dysuria. Pt Subjective Complaint: generalized weakness/fatigue Onset (ago): day(s) Duration: gradually worsening Location: generalized Migration: none Pain Severity: none Pain Scale: 0 Improves with: none Worsens with: none Associated symptoms: Reports: denies other symptoms. Denies: chest pain, confusion, dysuria, fever/chills, nausea/vomiting, shortness of breath - Related Data Home Medications Medication Instructions Recorded Confirmed Aspirin [Lo-Dose Aspirin EC] 81 mg PO DAILY 10/04/16 05/03/17 Atenolol [Tenormin] 12.5 mg PO DAILY 10/04/16 05/03/17 Cholecalciferol (Vitamin D3) 2,000 unit PO DAILY 10/04/16 05/03/17 [Vitamin D3] Citalopram Hydrobromide 10 mg PO DAILY 10/04/16 05/03/17 [Citalopram HBr] Ferrous Sulfate [Iron] 325 mg PO BID 10/04/16 05/03/17 Glimepiride [Amaryl] 2 mg PO DAILY 10/04/16 05/03/17 Hydrocortisone [Cortef] 10 mg PO QPM 10/04/16 05/03/17 Hydrocortisone [Cortef] 15 mg PO QAM 10/04/16 05/03/17 Multivit-Min/FA/Lycopen/Lutein 1 tab PO DAILY 10/04/16 05/03/17 [Adults 50+ Multivitamin Tablet] Omeprazole [PriLOSEC] 20 mg PO DAILY 10/04/16 05/03/17 Warfarin [Coumadin] 5 mg PO QPM 10/04/16 05/03/17 levETIRAcetam [Keppra] 500 mg PO Q12HR 10/04/16 05/03/17 Donepezil [Aricept] 10 mg PO HS 05/03/17 05/03/17 Levothyroxine [Synthroid] 112 mcg PO 0630 05/03/17 05/03/17 Lovastatin [Mevacor] 20 mg PO HS 05/03/17 05/03/17 Allergies Allergy/AdvReac Type Severity Reaction Status Date / Time Hydromorphone [From Dilaudid] Allergy See Verified 03/28/17 15:09 Comments All systems ED: reviewed and negative except as stated. Past Medical History - Past Medical History Attestation: Yes The following information was validated with the patient. Source: patient Medical history: Reports: CVA, dementia Surgical history: Reports: appendectomy, cholecystectomy, colectomy, knee replacement, orthopedic, other, sinus surgery (Adenoidectomy-tonsillectomy), vascular surgery (Status post CVA probable lysis), other Psychiatric history: Reports: anxiety, depression, other - Social History Smoking Status: Never smoker Smokeless Tobacco Status: No Alcohol use: Reports: none Drug use: Reports: none Physical Exam - General Limitations: no limitations General appearance: alert, in no apparent distress - Head Head exam: atraumatic, normocephalic, normal inspection - Eye Eye exam: Present: normal appearance, EOMI - ENT ENT exam: normal exam, normal oropharynx, mucous membranes moist - Neck Neck exam: Present: normal inspection, full ROM, trachea midline - Respiratory Respiratory exam: Present: normal lung sounds bilaterally - Cardiovascular Cardiovascular exam: Present: regular rate, normal rhythm, normal heart sounds - Abdominal Exam Abdominal exam: Present: soft, Non-Tender. Absent: tenderness, distention, guarding, rebound, rigidity - Extremities Exam Extremities exam: Present: normal inspection, full ROM, tenderness (Right knee) . Absent: pedal edema - Back Exam Back exam: Present: normal inspection, full ROM. Absent: tenderness - Neurological Exam Neurological exam: Present: alert, oriented X3 - Psychiatric Psychiatric exam: Present: normal affect, normal mood - Skin Skin exam: Present: warm, dry, intact, normal color Course Course Narrative: Patient seen and examined. Generalized weakness worsening over the last week. Fall today on his right knee. Will get imaging of the knee. We will get CBC, BMP, troponin, EKG, urinalysis and chest x-ray to rule out any infectious symptoms. - Reevaluation(s) Reevaluation #1: Lab work appears unremarkable. Mild elevation in creatinine at 1.31. Imaging shows chronic fracture of the fibula. Does not seem to have any tenderness over her he has signs of a fracture. Since patient has been worsening with his weakness, we will admit for TIA workup with need for evaluation for PT and OT. Spoke with hospitalist Alex rOo who has accepted patient for admission. Time: 19:20 Vital Signs Temperature 98.2 F 05/03/17 14:49 Pulse Rate 89 05/03/17 14:49 Respiratory Rate 16 05/03/17 14:49 Blood Pressure 122/81 05/03/17 14:49 O2 Sat by Pulse Oximetry 98 05/03/17 14:49 Temperature 98.2 F 05/03/17 14:49 Pulse Rate 78 05/03/17 19:00 Respiratory Rate 16 05/03/17 19:00 Blood Pressure 179/77 05/03/17 19:00 O2 Sat by Pulse Oximetry 95 05/03/17 19:00 Oxygen Delivery Oxygen Delivery Room Air Weakness - Medical Records Medical records reviewed: Yes I reviewed the patient's medical records. - Lab Data Lab results reviewed: Yes I reviewed the patient's lab results. Result diagrams: 05/03/17 16:27 05/03/17 16:27 Lab Results 05/03/17 05/03/17 05/03/17 Range/Units 16:27 16:27 16:27 WBC 8.7 (4.3-11.1) K/mcL RBC 4.39 (4.19-5.50) M/mcL Hgb 13.7 (12.9-16.9) g/dL Hct 39.3 (37.5-50.1) % MCV 89.5 (83.0-100.0) fL MCH 31.2 (28.0-33.3) pg MCHC 34.9 (31.6-35.5) g/dL RDW 13.2 (11.5-14.5) % Plt Count 206 (140-400) K/mcL MPV 9.5 (9.4-12.4) fL Immature Gran % 0.3 (0-4) % Seg Neutrophils % 75.5 % Lymphocytes % 16.6 % Monocytes % 6.0 % Eosinophils % 1.3 % Basophils % 0.3 % Neutrophils # 6.5 (1.6-8.9) K/mcL Lymphocytes # 1.4 (0.6-4.6) K/mcL Monocytes # 0.5 (0.0-1.3) K/mcL Eosinophils # 0.1 (0.0-0.6) K/mcL Basophils # 0.0 (0.0-0.2) K/mcL Sodium 137 (136-145) mEq/L Potassium 3.9 (3.5-4.5) mEq/L Chloride 104 (98-109) mEq/L Carbon Dioxide 24 (19-29) mEq/L BUN 17 (8-26) mg/dL Creatinine 1.31 H (0.72-1.25) mg/dL Est GFR ( Amer) > 60 (> 60) Est GFR (Non-Af Amer) 53 L (> 60) BUN/Creatinine Ratio 13 (6-26) Glucose 253 H (70-99) mg/dL Calculated Osmolality 294 (280-300) Calcium 8.8 (8.6-10.8) mg/dL Total Bilirubin 0.3 (0.2-1.2) mg/dL AST 18 (5-34) Units/L ALT 18 (0-55) Units/L Alkaline Phosphatase 71 (38-126) Units/L Troponin I 0.01 (0-0.03) ng/mL Serum Total Protein 6.9 (6.0-8.3) g/dL Albumin 3.1 L (3.5-5.0) g/dL Globulin 3.8 H (2.4-3.5) g/dL Albumin/Globulin Ratio 0.8 L (1.1-2.2) TSH 0.027 L (0.350-4.840) mcIU/mL Urine Color (Yellow) Urine Clarity (Clear) Urine pH (5.0-8.0) pH Units Ur Specific [place] (1.010-1.025) Urine Protein (Neg-Trace) mg/dL Urine Glucose (UA) (Normal) mg/dL Urine Ketones (Negative) mg/dL Urine Blood (Negative) Urine Nitrite (Negative) Urine Bilirubin (Negative) Urine Urobilinogen (Normal) mg/dL Ur Leukocyte Esterase (Negative) Ur Culture Indicated? (NO) 05/03/17 Range/Units 18:00 WBC (4.3-11.1) K/mcL RBC (4.19-5.50) M/mcL Hgb (12.9-16.9) g/dL Hct (37.5-50.1) % MCV (83.0-100.0) fL MCH (28.0-33.3) pg MCHC (31.6-35.5) g/dL RDW (11.5-14.5) % Plt Count (140-400) K/mcL MPV (9.4-12.4) fL Immature Gran % (0-4) % Seg Neutrophils % % Lymphocytes % % Monocytes % % Eosinophils % % Basophils % % Neutrophils # (1.6-8.9) K/mcL Lymphocytes # (0.6-4.6) K/mcL Monocytes # (0.0-1.3) K/mcL Eosinophils # (0.0-0.6) K/mcL Basophils # (0.0-0.2) K/mcL Sodium (136-145) mEq/L Potassium (3.5-4.5) mEq/L Chloride (98-109) mEq/L Carbon Dioxide (19-29) mEq/L BUN (8-26) mg/dL Creatinine (0.72-1.25) mg/dL Est GFR ( Amer) (> 60) Est GFR (Non-Af Amer) (> 60) BUN/Creatinine Ratio (6-26) Glucose (70-99) mg/dL Calculated Osmolality (280-300) Calcium (8.6-10.8) mg/dL Total Bilirubin (0.2-1.2) mg/dL AST (5-34) Units/L ALT (0-55) Units/L Alkaline Phosphatase (38-126) Units/L Troponin I (0-0.03) ng/mL Serum Total Protein (6.0-8.3) g/dL Albumin (3.5-5.0) g/dL Globulin (2.4-3.5) g/dL Albumin/Globulin Ratio (1.1-2.2) TSH (0.350-4.840) mcIU/mL Urine Color Yellow (Yellow) Urine Clarity Clear (Clear) Urine pH 6.5 (5.0-8.0) pH Units Ur Specific [place] 1.018 (1.010-1.025) Urine Protein Negative (Neg-Trace) mg/dL Urine Glucose (UA) 500 H (Normal) mg/dL Urine Ketones Negative (Negative) mg/dL Urine Blood Negative (Negative) Urine Nitrite Negative (Negative) Urine Bilirubin Negative (Negative) Urine Urobilinogen Normal (Normal) mg/dL Ur Leukocyte Esterase Negative (Negative) Ur Culture Indicated? NO (NO) - Radiology Data Radiology results reviewed: Yes I reviewed the patient's radiology results. Chest X-Ray 05/03/17 16:03 IMPRESSION: Stable cardiomegaly. Low lung volumes. Mild pulmonary vascular congestion. Mild discoid atelectasis at the left lung base. D/ / Man Ronquillo MD / Man Ronquillo MD Interpreting Provider: Man Ronquillo MD Knee X-Ray 05/03/17 16:04 IMPRESSION: 1. No acute bony or joint abnormality 2. Tricompartmental osteoarthritic changes D/ / Sarath Weaver MD / Sarath Weaver MD Interpreting Provider: Sarath Weaver MD Tibia/Fibula X-Ray 05/03/17 16:13 IMPRESSION: No radiographic evidence of acute osseous findings. Chronic appearing fracture of proximal fibula, and distal tibia. D/ / Livan Gordon MD / Livan Gordon MD Interpreting Provider: Livan Gordon MD Head CT 05/03/17 16:18 IMPRESSION: No acute intracranial abnormality. Diffuse atrophic changes with findings suggesting chronic microvascular ischemia and an old left frontoparietal region infarct. Stable sellar-suprasellar mass. D/ / 05/03/2017 16:59:21 Sarath Weaver MD / george Interpreting Provider: Sarath Weaver MD - EKG Data EKG attestation: Yes I reviewed and interpreted this EKG. EKG results narrative: EKG done at 1510 shows atrial fibrillation with a rate of 80 beats per minute. No acute ST elevation or depression. Normal axis. Unchanged from prior EKG done 10/04/2016.
[2017-05-03 18:21] LABS: Bilirubin,Urine Negative (Negative); Blood,Urine Negative (Negative); Clarity,Urine Clear (Clear); Color,Urine Yellow (Yellow); Glucose,Urine (UA) 500 mg/dL (Normal); Ketones,Urine Negative (Negative); Leukocyte Esterase,Urine Negative (Negative); Nitrite,Urine Negative (Negative); PH,Urine 6.5 pH Units (5.0-8.0); Protein,Urine Negative (Neg-Trace); Specific Gravity,Urine 1.018 (1.010-1.025); Urobilinogen,Urine Normal (Normal)
[2017-05-03] MEDS ORDERED: D5% in Water 1,000 ML IVC PRN (23:53)
[2017-05-03] MEDS ORDERED: Dextrose Gel 15 GM PO PRN ×2 (23:53)
[2017-05-03] MEDS ORDERED: *HR* Dextrose 50 % in Water (Syg) 50 ML SYRINGE IVP PRN (23:53)
--- NOTE | 2017-05-04 00:02 | Internal Med History&Physical ---
Date of Encounter: 05/04/17 Time of Encounter: 21:00 Assessment and Plan (1) Acute on chronic alteration in mental status Current visit: Yes Status: Resolved Patient has been brought in upon his 's request as she feels that though he has underlying dementia with but he is becoming more confused appeared of last 2 weeks. I UA checked 2 weeks ago and was checked today has been reported negative as well as chest x-ray. He does not appear to have infection. My overall impression as that his dementia is worsening which is initial course of the disease but I really doubt if there is any acute event happened as I did not notice any new focal neurological finding. For the sake of further evaluation I will order an MRI brain echocardiogram ultrasound of the carotid lipid profile. (2) Paroxysmal atrial fibrillation Current visit: Yes Status: Chronic Rate controlled he is on Coumadin and we are waiting for PT/INR pharmacy will dose his Coumadin is on 5 mg daily (3) Type 2 diabetes mellitus Current visit: Yes Status: Chronic Accu-Chek 4 times a day with sliding scale coverage. He is on Amaryl which will be on hold Qualifiers: Diabetes mellitus complication status: with unspecified complications Diabetes mellitus terminal superintendent insulin use: without terminal superintendent use Qualified Code( s): E11.8 - Type 2 diabetes mellitus with unspecified complications (4) Hypothyroid Current visit: Yes Status: Acute His TSH is quite low under 0.5 and he is on Synthyroid and I suspect the dose is too much for him therefore I will put Synthroid on hold recheck his TSH and free T4 and free T3 to readjust the dose downward before discharge Qualifiers: Hypothyroidism type: unspecified Qualified Code(s): E03.9 - Hypothyroidism , unspecified (5) CKD (chronic kidney disease) stage 3, GFR 30-59 ml/min Current visit: No Status: Chronic Renal function seems is stable compared to previous readings (6) HLD (hyperlipidemia) Current visit: No Status: Chronic Resume medication recheck lipid level Qualifiers: Hyperlipidemia type: mixed hyperlipidemia Qualified Code(s): E78.2 - Mixed hyperlipidemia (7) HTN (hypertension) Current visit: No Status: Chronic Resume home medication and daily monitoring Qualifiers: Hypertension type: essential hypertension Qualified Code(s): I10 - Essential (primary) hypertension Internal Medicine - H&P: HPI Chief complaint: Fall bilateral lower extremity weakness Admitted From: Home Plans for Post Hospital Care: Transfer [facility] History of present illness: Mr. Carter is a 82 year old male past medical history significant for diabetes hypertension dyslipidemia CVA dementia hypothyroidism chronic kidney disease stage III. Apparently had a stroke which caused weakness on the right side. He is on Coumadin and this is not clear if he has chronic atrial fibrillation. ER has not bothered to check his PT/INR therefore it will be ordered. Patient is quite confused though well awake and quite pleasant which raises a question if this is his baseline. Obviously he is unable to tell me much and there is no family available at this point. Therefore most of the information obtained from ER notes. Accordingly patient was taken to car today when he fell and hurt his right knee. also complain that he is probably becoming more confused over over last few weeks. Apparently a UA checked in long-term 2 weeks ago was negative for infection and even today in the ER it was checked and again it was negative for leukocyte and nitrite. Chest x-ray is also clear and apparently no other complaints were reported. Patient is awake appears quite happy actually but unable to answer any question follow simple commands only and seems to move all 4 extremities equally well. Past Med Surg Social Fam HX - Past Medical History Medical history: CVA, dementia Psychiatric history: anxiety, depression, other - Past Surgical History Surgical History: appendectomy, cholecystectomy, colectomy, knee replacement, orthopedic, other, sinus surgery, vascular surgery, other - Social History Smoking Status: Never smoker Smokeless Tobacco Status: No Alcohol use: none Drug use: none - Family History Brother Living Status: Hx Family Cancer: Yes Internal Medicine - H&P: Meds Aspirin [Lo-Dose Aspirin EC] 81 mg PO DAILY 10/04/16 [History] Atenolol [Tenormin] 12.5 mg PO DAILY 10/04/16 [History] Cholecalciferol (Vitamin D3) [Vitamin D3] 2,000 unit PO DAILY 10/04/16 [History] Citalopram Hydrobromide [Citalopram HBr] 10 mg PO DAILY 10/04/16 [History] Ferrous Sulfate [Iron] 325 mg PO BID 10/04/16 [History] Glimepiride [Amaryl] 2 mg PO DAILY 10/04/16 [History] Hydrocortisone [Cortef] 10 mg PO QPM 10/04/16 [History] Hydrocortisone [Cortef] 15 mg PO QAM 10/04/16 [History] Multivit-Min/FA/Lycopen/Lutein [Adults 50+ Multivitamin Tablet] 1 tab PO DAILY 10/04/16 [History] Omeprazole [PriLOSEC] 20 mg PO DAILY 10/04/16 [History] Warfarin [Coumadin] 5 mg PO QPM 10/04/16 [History] levETIRAcetam [Keppra] 500 mg PO Q12HR 10/04/16 [History] Donepezil [Aricept] 10 mg PO HS 05/03/17 [History] Levothyroxine [Synthroid] 112 mcg PO 0630 05/03/17 [History] Lovastatin [Mevacor] 20 mg PO HS 05/03/17 [History] 3 Allergy/AdvReac Type Severity Reaction Status Date / Time Hydromorphone [From Dilaudid] Allergy See Verified 03/28/17 15:09 Comments All Systems PM: A 10-system review of systems was performed and is negative for pertinent findings except as documented above in the HPI. Review of systems: Ashley Nogueira patient is quite confused and unable to answer my question is has underlying dementia - Constitutional Vitals: Temp Pulse Resp BP Pulse Ox 97.9 F 82 16 150/83 96 05/03/17 23:51 05/03/17 23:51 05/03/17 23:51 05/03/17 23:51 05/03/17 23:51 General appearance: Present: A&O X 0, pleasant, no acute distress - Head Head exam: Present: atraumatic, normocephalic - Eye Eye exam: Present: PERRL, conjuntiva pink, sclera anicteric Pupils: Present: PERRL - Neck Neck exam general surgery: Present: supple, trachea midline. Absent: lymphadenopathy - Respiratory Respiratory exam: Present: CTAB. Absent: accessory muscle use, rales, rhonchi, wheezes - Cardiovascular Cardiovascular exam: Present: RRR, +S1, +S2. Absent: diastolic murmur, gallop, rubs, systolic murmur - GI/Abdominal GI/Abdominal exam: Present: normal bowel sounds, soft, no peritoneal signs. Absent: distended, tenderness - Extremities Exam Extremities exam: Present: warm, radial pulses palpable and symmetrical. Absent : calf tenderness, cyanotic, pedal edema - Neurological Exam Neurological exam: Present: no focal deficits. Absent: pronater drift, facial droop, speech deficit Additional comments: Patient is awake and pleasant follows simple commands but otherwise do not answer any question well though he can talk but his conversation does not make much sense. Not sure if this is his baseline. In any case I did not notice any pronator drift in both upper and lower extremities and plantars are downward bilaterally. He has nice teaseler in both hands though right side seems relatively weaker than the left. - Skin Skin exam: Present: dry, intact Internal Med - H&P Results - Labs CBC & Chem 7: 05/03/17 16:27 05/03/17 16:27
[2017-05-04] MEDS: Aspirin Enteric Coated 81 MG Tablet PO SCH ×2 (00:35→09:40)
[2017-05-04] MEDS: Insulin LISPRO 300 UNITS/3 ML VIAL SQ SCH ×6 (00:37→21:50)
[2017-05-04 01:11] LABS: INR 2.7; Prothrombin Time 29.3 Seconds (9.4-12.1)
[2017-05-04 01:19] LABS: Chol/HDL Ratio 3.9 (0-4.9)
[2017-05-04 02:19] LABS: Triiodothyronine (T3) Free 1.55 pg/mL (1.71-3.71)
[2017-05-04 03:31] LABS: Hemoglobin A1C 7.1 %
[2017-05-04] MEDS: levETIRAcetam 250 MG TABLET PO SCH ×2 (06:08→18:53)
[2017-05-04 06:23] LABS: INR 2.5; Prothrombin Time 27.6 Seconds (9.4-12.1)
[2017-05-04] MEDS: Multivit/Ca/Min/Fe/FA 1 TAB TABLET PO SCH (09:40)
[2017-05-04] MEDS: Cholecalciferol (D-3) 1,000 UNIT TABLET PO SCH (09:40)
[2017-05-04] MEDS ORDERED: 0.9 % Sodium Chloride 1,000 ML IVC ONE (13:56)
--- NOTE | 2017-05-04 13:59 | Internal Med Progress Note ---
Date of Encounter: 05/04/17 Time of Encounter: 13:13 - Assessment and plan (1) CVA, old, hemiparesis Current Visit: No Status: Chronic Assessment and plan: Fredy Carter is a 82-year-old male with past medical history CVA, A. fib on Coumadin, dementia, diabetes, hypertension and seizure disorder who presented to [facility] on 05/03/2017 after falling at home and concern of right-sided weakness. He was placed in observation status for CVA rule out 1. CVA: per hx with residual right sided weakness. Now with fall on day of presentation with increased right-sided weakness. Head CT with chronic microvascular changes and evidence of old infarct, otherwise non-acute. TTE with normal EF and no evidence of PFO or cardiac source of emboli. Continue home ASA, statin. Brain MRI pending. PT/OT consult 2. Fall: on day of presentation. Right tib-fib x-ray with chronic appearing fracture of proximal fibula and distal tibia otherwise nonacute. Fracture unlikely eligible for surgical intervention, especially patient's advanced age and comorbidities. Can follow up outpatient with orthopedics. 3. Atrial fibrillation: per hx. Rate controlled. Discussed risks versus benefits of anticoagulation with and she wishes to continue Coumadin at this time. Continue home BB, Coumadin. 4. Dementia: per hx. Mentation at baseline per (alert to self only). Cont home Aricept 5. Diabetes: per hx. Hgb A1c 7%. Holding home oral hypoglycemics. SSI. Monitor blood sugar and titrate PRN 6 HTN: per hx. BP controlled. Cont home BP medications. Monitor BP and titrate PRN 7. DVT prophylaxis: coumadin 8. Acute on chronic kidney disease: Cr 1.3 which appears slightly increased from baseline. Likely prerenal with decreased PO and take prior to presentation. EF normal. Gentle IV fluids. Avoid nephrotoxic agents as possible. Repeat CMP in the morning. 9. Hypothyroidism: per hx. TSH 0.027. Repeat TSH 0, nonexistent. Free T4 0.70 , free T3 1 0.55. Home levothyroxine stopped. Attempting to reach patient's clinical pharmacy specialist. 10. Adrenal insufficiency: With known pituitary tumor. Continue home steroids. (2) CKD (chronic kidney disease) stage 3, GFR 30-59 ml/min Current Visit: No Status: Chronic (3) HTN (hypertension) Current Visit: No Status: Chronic Qualifiers: Hypertension type: essential hypertension Qualified Code(s): I10 - Essential (primary) hypertension (4) Paroxysmal atrial fibrillation Current Visit: Yes Status: Chronic (5) Type 2 diabetes mellitus Current Visit: Yes Status: Chronic Qualifiers: Diabetes mellitus complication status: with unspecified complications Diabetes mellitus detention insulin use: without terminal computer operator use Qualified Code( s): E11.8 - Type 2 diabetes mellitus with unspecified complications - Constitutional Vitals: Temp Pulse Resp BP Pulse Ox 98.0 F 75 16 135/77 96 05/04/17 11:43 05/04/17 11:43 05/04/17 11:43 05/04/17 11:43 05/04/17 11:43 General appearance: Present: A&O X 1, pleasant, no acute distress - Head Head exam: Present: atraumatic, normocephalic - Eye Eye exam: Present: PERRL, conjuntiva pink, sclera anicteric Pupils: Present: PERRL - Neck Neck exam general surgery: Present: supple, trachea midline. Absent: lymphadenopathy - Respiratory Respiratory exam: Present: CTAB. Absent: accessory muscle use, rales, rhonchi, wheezes - Cardiovascular Cardiovascular exam: Present: RRR, +S1, +S2. Absent: diastolic murmur, gallop, rubs, systolic murmur - GI/Abdominal GI/Abdominal exam: Present: normal bowel sounds, soft, no peritoneal signs. Absent: distended, tenderness - Extremities Exam Extremities exam: Present: warm, radial pulses palpable and symmetrical. Absent : calf tenderness, cyanotic, pedal edema - Neurological Exam Neurological exam: Present: CN II-XII intact, oriented X3, no focal deficits. Absent: pronater drift, facial droop, speech deficit - Skin Skin exam: Present: dry, intact Internal Medicine: Result - Labs CBC & Chem 7: 05/03/17 16:27 05/03/17 16:27 Labs: Cardiac Enzymes 05/04/17 05/04/17 Range/Units 00:28 06:07 Troponin I 0.00 0.01 (0-0.03) ng/mL - ABG Interpretation ABG results: PT/INR, D-dimer PT 27.6 Seconds (9.4-12.1) H 05/04/17 06:07 - Impressions Impressions Echocardiogram 05/04/17 23:53 Impressions: LVEF 60%. Normal LV chamber size, wall thickness and function. Indeterminate diastolic function. Normal right ventricular structure and function. Moderately dilated left atrium. Mild-moderate aortic regurgitation. Mild pulmonary hypertension. Estimated RVSP is 41 mmHg. No evidence of a PFO with agitated saline contrast. Left Ventricular Wall Motion: Rest Echo Findings All wall segments showed normal motion. Findings: Study Quality * Technically sub-optimal due to poor echocardiographic windows. ECG Findings * Atrial fibrillation. Left Ventricle * LVEF 60%. * Normal LV chamber size, wall thickness and function. * Indeterminate diastolic function. Right Ventricle * Normal right ventricular structure and function. Left Atrium * Moderately dilated left atrium. Right Atrium * Mildly dilated right atrium. Interatrial Septum * No evidence of PFO with agitated saline contrast. Aortic Valve * Aortic valve not well visualized. * Grossly appears to be a trileaflet aortic valve. * Mild-moderate aortic regurgitation. * No aortic stenosis. Mitral Valve * Mild mitral annular calcification. * No mitral regurgitation. * No mitral stenosis. Tricuspid Valve * Normal tricuspid valve structure and function. * Trace tricuspid regurgitation. * Mild pulmonary hypertension. * Estimated RVSP is 41 mmHg. * Estimated RA pressure is 5 mmHg. Pulmonic Valve * Pulmonic valve not well visualized. * No pulmonic regurgitation. Aorta * Normally sized aortic root. Pericardium * The pericardium appears normal. IVC * Normal IVC dimensions and inspiratory collapse. Pulmonary Artery * Normal visualized portions of the main pulmonary artery. Consult Discharge Plan - Plan Referrals: Chrissy Welsh CNP [Primary Care Provider] -
--- NOTE | 2017-05-04 14:32 | Electrocardiograph Report ---
[address] [place] [address] Test Date: 2017-05-03 Pat Name: [facility] Department: 104 Room: 3B24 Gender: M Public Health Inspector: LEONEL : 1935 Requested By: Ana Potter Order Number: [id number] Reading MD: Haydee Kang Measurements Intervals [place] Rate: 80 P: PA: 0 QRS: 32 QRSD: 90 T: 41 QT: 392 QTc: 428 Interpretive Statements ATRIAL FIBRILLATION ABNORMAL RHYTHM ECG Electronically Signed On 05-04-2017 14:30:18 EDT by Haydee Kang
--- NOTE | 2017-05-04 17:18 | Neurology - Consult Note ---
Date of Encounter: 05/04/17 Time of Encounter: 17:15 Assessment and Plan (1) TIA (transient ischemic attack) Current Visit: No Status: Acute Certainly this gentleman may have had a transient ischemic attack. There is a small area of diffusion deficit located in the left temporal occipital lobe region. I also feel that deconditioning is a significant part of his disability. For the most part he sits in his lift chair most of the day and was increasingly dyspneic and not able to tolerate the exertion that it took to walk about 19-20 feet. I feel that this gentleman would definitely benefit from a short course in extended care facility where he can work on his strengthening and endurance. Stroke workup is pending. Otherwise risk factor management is paramount. He will maintain his Coumadin. She also maintain statins as well as antihypertensives. I will reevaluate him at your request. For now stroke protocol orders should be implemented. Qualifiers: Transient cerebral ischemia type: other Qualified Code(s): G45.8 - Other transient cerebral ischemic attacks and related syndromes History of Present Illness HPI: Mr. Carter is a 82 year old male who was seen and examined in neurologic consultation at the request of the nurse practitioner Yesenia Londono. Mr. Carter is a very pleasant 82-year-old gentleman who is seen for neurological evaluation secondary to suspicions of an acute left temporal occipital lobe infarct. 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 He is admitted today secondary to acute weakness. Mr. Carter's had a sedentary lifestyle since his initial stroke. He is increasingly less active and for the most part sits in his chair all day. His was walking him to assist him to get into the vehicle to make a trip and he was too weak and collapsed. He did not lose consciousness. No seizure activity was identified. Subsequently he was brought to [facility] and a stat MRI scan of the brain was performed. He does reveal the old area of left hemispheric cystic encephalomalacia involving the left frontal parietal lobe region. However in addition, there was a punctate area of infarct in the left temporal occipital lobe region. Currently however he is back to his normal baseline. Other stroke risk factors include paroxysmal atrial fibrillation, diabetes mellitus, hyperlipidemia, hypertension and his age. Past Med Surg Social Fam HX - Past Medical History Medical history: CVA, dementia Psychiatric history: anxiety, depression, other - Past Surgical History Surgical History: appendectomy, cholecystectomy, colectomy, knee replacement, orthopedic, other, sinus surgery, vascular surgery, other - Social History Smoking Status: Never smoker Smokeless Tobacco Status: No Alcohol use: none Drug use: none - Family History Brother Living Status: Hx Family Cancer: Yes Medications and Allergies Aspirin [Lo-Dose Aspirin EC] 81 mg PO DAILY 10/04/16 [History] Atenolol [Tenormin] 12.5 mg PO DAILY 10/04/16 [History] Cholecalciferol (Vitamin D3) [Vitamin D3] 2,000 unit PO DAILY 10/04/16 [History] Citalopram Hydrobromide [Citalopram HBr] 10 mg PO DAILY 10/04/16 [History] Ferrous Sulfate [Iron] 325 mg PO BID 10/04/16 [History] Glimepiride [Amaryl] 2 mg PO DAILY 10/04/16 [History] Hydrocortisone [Cortef] 10 mg PO QPM 10/04/16 [History] Hydrocortisone [Cortef] 15 mg PO QAM 10/04/16 [History] Multivit-Min/FA/Lycopen/Lutein [Adults 50+ Multivitamin Tablet] 1 tab PO DAILY 10/04/16 [History] Omeprazole [PriLOSEC] 20 mg PO DAILY 10/04/16 [History] Warfarin [Coumadin] 5 mg PO QPM 10/04/16 [History] levETIRAcetam [Keppra] 500 mg PO Q12HR 10/04/16 [History] Donepezil [Aricept] 10 mg PO HS 05/03/17 [History] Levothyroxine [Synthroid] 112 mcg PO 0630 05/03/17 [History] Lovastatin [Mevacor] 20 mg PO HS 05/03/17 [History] 3 Allergy/AdvReac Type Severity Reaction Status Date / Time Hydromorphone [From Dilaudid] Allergy See Verified 03/28/17 15:09 Comments All Systems: A 10-system review of systems was performed and is negative for pertinent findings except as documented above in the HPI. Review of Systems: 10 point review of systems is consistent with history of present illness and otherwise negative. Physical Examination - Vital Signs Vital Signs: Initial Vital Signs Temp Pulse Resp BP Pulse Ox 98.2 F 89 16 122/81 98 05/03/17 14:49 05/03/17 14:49 05/03/17 14:49 05/03/17 14:49 05/03/17 14:49 - Constitutional General appearance: comfortable - Neurologic Sensorimotor examination: hemiparesis (Spastic right hemiparesis as a result of the previous old left frontoparietal lobe infarct.) Motor examination - right side: 3/5: deltoids, biceps, triceps, tumbling machine operator, hip flexors, toe extension (EHL), 4/5: tibialis Anterior, quadriceps, plantarflexion Motor examination - left side: 5/5: deltoids, biceps, triceps, wrist flexion, wrist extension, hip flexors, tumbling machine operator, quadriceps, tibialis Anterior, toe extension (EHL), plantarflexion Detailed sensory examination: intact Reflex and gait examination: other (I did not ambulate the patient today. However the occupational therapist is in the room.) Mental Status Examination: awake, alert, oriented to person, follows commands appropriately, answers questions appropriately (However his gives the bulk of the history as she is more reliable.), impaired cognition Cranial nerve examination: PERRL, EOMI, corneal reflexes brisk symmetrically, sensory to face intact, mastication intact, no facial asymmetry is present, no dysarthria, hearing is intact symmetrically Results - Laboratory Findings CBC and BMP: 05/03/17 16:27 05/03/17 16:27 Abnormal lab findings: Abnormal lab results PT 27.6 Seconds (9.4-12.1) H 05/04/17 06:07 Creatinine 1.31 mg/dL (0.72-1.25) H 05/03/17 16:27 Est GFR (Non-Af Amer) 53 (> 60) L 05/03/17 16:27 Glucose 253 mg/dL (70-99) H 05/03/17 16:27 POC Glucose 146 (58-89) H 05/03/17 21:09 Hemoglobin A1c 7.1 % (-5.6) H 05/04/17 00:28 Albumin 3.1 g/dL (3.5-5.0) L 05/03/17 16:27 Globulin 3.8 g/dL (2.4-3.5) H 05/03/17 16:27 Albumin/Globulin Ratio 0.8 (1.1-2.2) L 05/03/17 16:27 Triglycerides 247 mg/dL (< 150) H 05/04/17 00:28 VLDL Cholesterol, Calc 49 mg/dL (< 31) H 05/04/17 00:28 HDL Cholesterol 32 mg/dL (40-59) L 05/04/17 00:28 TSH 0.000 mcIU/mL (0.350-4.840) L 05/04/17 00:28 Free T3 1.55 pg/mL (1.71-3.71) L 05/04/17 00:28 Urine Glucose (UA) 500 mg/dL (Normal) H 05/03/17 18:00 Nasal Screen MRSA (PCR) Positive (Negative) A 05/04/17 11:10 Consult Discharge Plan - Plan Referrals: Chrissy Welsh CNP [Primary Care Provider] -
[2017-05-04] MEDS ORDERED: *HR* Warfarin 5 MG TABLET PO ONE (18:00)
[2017-05-04] MEDS ORDERED: Warfarin perPT PO PRN (18:00)
[2017-05-04] MEDS: Hydrocortisone 10 MG TABLET PO SCH (21:01)
[2017-05-05 04:05] LABS: Hematocrit 36.5 % (37.5-50.1); Hemoglobin 12.8 g/dL (12.9-16.9); Mean Corpuscular HGB Conc 35.1 g/dL (31.6-35.5); Mean Corpuscular Hemoglobin 30.8 pg (28.0-33.3); Mean Corpuscular Volume 87.7 fL (83.0-100.0); Mean Platelet Volume 9.5 fL (9.4-12.4); Platelet Count 253 K/mcL (140-400); Red Blood Count 4.16 M/mcL (4.19-5.50); Red Cell Distribution Width 13.2 % (11.5-14.5)
[2017-05-05 04:07] LABS: Prothrombin Time 22.4 Seconds (9.4-12.1)
[2017-05-05 04:23] LABS: Alanine Aminotransferase 16 Units/L (0-55); Albumin 2.9 g/dL (3.5-5.0); Albumin/Globulin Ratio 0.9 (1.1-2.2); Alkaline Phosphatase 63 Units/L (38-126); Aspartate Amino Transferase 13 Units/L (5-34); BUN/Creatinine Ratio 12 (6-26); Bilirubin,Total 0.6 mg/dL (0.2-1.2); Blood Urea Nitrogen 13 mg/dL (8-26); Calcium 8.8 mg/dL (8.6-10.8); Carbon Dioxide 28 mEq/L (19-29); Chloride 103 mEq/L (98-109); Globulin 3.3 g/dL (2.4-3.5); Glucose 224 mg/dL (70-99); Osmolality,Calculated 293 (280-300); Potassium 3.6 mEq/L (3.5-4.5); Sodium 138 mEq/L (136-145); Total Protein 6.2 g/dL (6.0-8.3); eGFR For African Americans > 60 (> 60); eGFR For Non-African Americans > 60 (> 60)
[2017-05-05] MEDS: levETIRAcetam 250 MG TABLET PO SCH ×2 (06:04→17:29)
[2017-05-05] MEDS: Multivit/Ca/Min/Fe/FA 1 TAB TABLET PO SCH (08:52)
[2017-05-05] MEDS: Cholecalciferol (D-3) 1,000 UNIT TABLET PO SCH (08:52)
[2017-05-05] MEDS: Hydrocortisone 10 MG TABLET PO SCH ×2 (08:53→20:08)
[2017-05-05] MEDS: Insulin LISPRO 300 UNITS/3 ML VIAL SQ SCH ×4 (08:53→20:21)
[2017-05-05] MEDS: Aspirin Enteric Coated 81 MG Tablet PO SCH (08:53)
--- NOTE | 2017-05-05 13:56 | Internal Med Progress Note ---
Date of Encounter: 05/05/17 Time of Encounter: 13:50 - Assessment and plan (1) CVA, old, hemiparesis Current Visit: No Status: Chronic Assessment and plan: Fredy Carter is a 82-year-old male with past medical history CVA, A. fib on Coumadin, dementia, diabetes, hypertension and seizure disorder who presented to [facility] on 05/03/2017 after falling at home and concern of right-sided weakness. He was placed in observation status for CVA rule out 1. CVA: per hx with residual right sided weakness. Now with fall on day of presentation with increased right-sided weakness. Brain MRI with acute punctate lacunar infarct in the left temporo-occipital region. TTE with normal EF and no evidence of PFO or cardiac source of emboli. Continue home ASA, Coumadin, statin. PT/OT recommending SNF. Neurology followed. 2. Fall: on day of presentation. Right tib-fib x-ray with chronic appearing fracture of proximal fibula and distal tibia otherwise nonacute. Fracture unlikely eligible for surgical intervention, especially patient's advanced age and comorbidities. Can follow up outpatient with orthopedics. 3. Atrial fibrillation: per hx. Rate controlled. Discussed risks versus benefits of anticoagulation with and she wishes to continue Coumadin at this time. Continue home BB, Coumadin. 4. Dementia: per hx. Mentation at baseline per (alert to self only). Cont home Aricept 5. Diabetes: per hx. Hgb A1c 7%. Holding home oral hypoglycemics. SSI. Monitor blood sugar and titrate PRN 6 HTN: per hx. BP controlled. Cont home BP medications. Monitor BP and titrate PRN 7. Acute on chronic kidney disease: Cr 1.3 which appears slightly increased from baseline. Likely prerenal with decreased PO and take prior to presentation. EF normal. Gentle IV fluids. Avoid nephrotoxic agents as possible. Repeat CMP in the morning. 8. Hypothyroidism: per hx. TSH 0.027. Repeat TSH 0, nonexistent. Free T4 0.70 , free T3 1 0.55. Patient has known pituitary tumor follows with endocrinology. Continue home levothyroxine. 9. Adrenal insufficiency: With known pituitary tumor. 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 No acute intervention needed per neurology. Continue home steroids. 10. DVT prophylaxis: coumadin (2) CKD (chronic kidney disease) stage 3, GFR 30-59 ml/min Current Visit: No Status: Chronic (3) HTN (hypertension) Current Visit: No Status: Chronic Qualifiers: Hypertension type: essential hypertension Qualified Code(s): I10 - Essential (primary) hypertension (4) Paroxysmal atrial fibrillation Current Visit: Yes Status: Chronic (5) Type 2 diabetes mellitus Current Visit: Yes Status: Chronic Qualifiers: Diabetes mellitus complication status: with unspecified complications Diabetes mellitus prison insulin use: without prison use Qualified Code( s): E11.8 - Type 2 diabetes mellitus with unspecified complications - Subjective Interval history: Seen and examined at bedside, he is pleasantly confused. Able to answer some yes no questions and follow simple commands. Uneventful night per RN - Constitutional Vitals: Temp Pulse Resp BP Pulse Ox 97.4 F L 80 17 123/76 99 05/05/17 12:17 05/05/17 12:17 05/05/17 12:17 05/05/17 12:17 05/05/17 12:17 General appearance: Present: A&O X 1, pleasant, no acute distress - Head Head exam: Present: atraumatic, normocephalic - Eye Eye exam: Present: PERRL, conjuntiva pink, sclera anicteric Pupils: Present: PERRL - Neck Neck exam general surgery: Present: supple, trachea midline. Absent: lymphadenopathy - Respiratory Respiratory exam: Present: CTAB. Absent: accessory muscle use, rales, rhonchi, wheezes - Cardiovascular Cardiovascular exam: Present: RRR, +S1, +S2. Absent: diastolic murmur, gallop, rubs, systolic murmur - GI/Abdominal GI/Abdominal exam: Present: normal bowel sounds, soft, no peritoneal signs. Absent: distended, tenderness - Extremities Exam Extremities exam: Present: warm, radial pulses palpable and symmetrical. Absent : calf tenderness, cyanotic, pedal edema - Neurological Exam Neurological exam: Present: CN II-XII intact, oriented X3, no focal deficits. Absent: pronater drift, facial droop, speech deficit Additional comments: Right arm and right leg weakness. - Skin Skin exam: Present: dry, intact Internal Medicine: Result - Labs CBC & Chem 7: 05/05/17 03:23 05/05/17 03:23 Labs: Short CBC 05/05/17 Range/Units 03:23 WBC 7.7 (4.3-11.1) K/mcL Hgb 12.8 L (12.9-16.9) g/dL Hct 36.5 L (37.5-50.1) % Plt Count 253 (140-400) K/mcL BMP 05/05/17 03:23 Sodium 138 Potassium 3.6 Chloride 103 Carbon Dioxide 28 BUN 13 Creatinine 1.07 Glucose 224 H Calcium 8.8 Liver Function 05/05/17 Range/Units 03:23 Total Bilirubin 0.6 (0.2-1.2) mg/dL AST 13 (5-34) Units/L ALT 16 (0-55) Units/L Alkaline Phosphatase 63 (38-126) Units/L Albumin 2.9 L (3.5-5.0) g/dL - ABG Interpretation ABG results: PT/INR, D-dimer PT 22.4 Seconds (9.4-12.1) H 05/05/17 03:23 - Impressions Impressions Brain MRI 05/04/17 23:54 IMPRESSION: 1. Acute punctate lacunar infarction in the medial left temporo-occipital region measuring 4 mm. No associated hemorrhage. 2. Diffuse parenchymal volume loss and sequela of chronic microvascular ischemic changes. Old left frontoparietal infarction. 3. 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 This exerts mild mass effect on the undersurface of the optic chiasm. The findings were sent to the [facility] at 2:17 pm on 05/04/2017to be communicated to a licensed caregiver. D/ / 05/04/2017 14:20:30 Herb Osborne MD / Melanie Amos Interpreting Provider: Herb Osborne MD Consult Discharge Plan - Plan Referrals: Chrissy Welsh, BOOKING MANAGER [Primary Care Provider] -
[2017-05-05] MEDS: *HR* Warfarin 5 MG TABLET PO SCH (17:28)
[2017-05-06 05:36] LABS: Hematocrit 37.1 % (37.5-50.1); Hemoglobin 12.9 g/dL (12.9-16.9); Immature Platelets 2.3 % (1.1-6.1); Mean Corpuscular HGB Conc 34.8 g/dL (31.6-35.5); Mean Corpuscular Hemoglobin 30.6 pg (28.0-33.3); Mean Corpuscular Volume 87.9 fL (83.0-100.0); Mean Platelet Volume 9.7 fL (9.4-12.4); Red Blood Count 4.22 M/mcL (4.19-5.50); Red Cell Distribution Width 13.2 % (11.5-14.5)
[2017-05-06 05:42] LABS: INR 2.2; Prothrombin Time 24.6 Seconds (9.4-12.1)
[2017-05-06] MEDS: levETIRAcetam 250 MG TABLET PO SCH ×2 (05:51→17:13)
[2017-05-06 05:54] LABS: Alanine Aminotransferase 16 Units/L (0-55); Albumin 2.8 g/dL (3.5-5.0); Albumin/Globulin Ratio 0.8 (1.1-2.2); Alkaline Phosphatase 60 Units/L (38-126); Aspartate Amino Transferase 15 Units/L (5-34); BUN/Creatinine Ratio 16 (6-26); Bilirubin,Total 0.4 mg/dL (0.2-1.2); Blood Urea Nitrogen 18 mg/dL (8-26); Calcium 8.9 mg/dL (8.6-10.8); Carbon Dioxide 26 mEq/L (19-29); Chloride 104 mEq/L (98-109); Globulin 3.4 g/dL (2.4-3.5); Glucose 197 mg/dL (70-99); Osmolality,Calculated 297 (280-300); Potassium 3.7 mEq/L (3.5-4.5); Sodium 140 mEq/L (136-145); Total Protein 6.2 g/dL (6.0-8.3); eGFR For African Americans > 60 (> 60); eGFR For Non-African Americans > 60 (> 60)
[2017-05-06] MEDS: Aspirin Enteric Coated 81 MG Tablet PO SCH (09:35)
[2017-05-06] MEDS: Hydrocortisone 10 MG TABLET PO SCH ×2 (09:37→20:07)
[2017-05-06] MEDS: Multivit/Ca/Min/Fe/FA 1 TAB TABLET PO SCH (09:39)
[2017-05-06] MEDS: Cholecalciferol (D-3) 1,000 UNIT TABLET PO SCH (09:40)
[2017-05-06] MEDS: Insulin LISPRO 300 UNITS/3 ML VIAL SQ SCH ×4 (09:49→21:35)
--- NOTE | 2017-05-06 15:40 | Internal Med Progress Note ---
Date of Encounter: 05/06/17 Time of Encounter: 15:37 - Assessment and plan (1) CVA, old, hemiparesis Current Visit: No Status: Chronic Assessment and plan: Fredy Carter is a 82-year-old male with past medical history CVA, A. fib on Coumadin, dementia, diabetes, hypertension and seizure disorder who presented to [facility] on 05/03/2017 after falling at home and concern of right-sided weakness. He was placed in observation status for CVA rule out 1. CVA: per hx with residual right sided weakness. Now with fall on day of presentation with increased right-sided weakness. Brain MRI with acute punctate lacunar infarct in the left temporo-occipital region. TTE with normal EF and no evidence of PFO or cardiac source of emboli. Continue home ASA, Coumadin, statin. PT/OT recommending SNF. Neurology followed. 2. Fall: on day of presentation. Right tib-fib x-ray with chronic appearing fracture of proximal fibula and distal tibia otherwise nonacute. Fracture unlikely eligible for surgical intervention, especially patient's advanced age and comorbidities. Can follow up outpatient with orthopedics. 3. Atrial fibrillation: per hx. Rate controlled. Discussed risks versus benefits of anticoagulation with and she wishes to continue Coumadin at this time. Continue home BB, Coumadin. 4. Dementia: per hx. Mentation at baseline per (alert to self only). Cont home Aricept 5. Diabetes: per hx. Hgb A1c 7%. Holding home oral hypoglycemics. SSI. Monitor blood sugar and titrate PRN 6 HTN: per hx. BP controlled. Cont home BP medications. Monitor BP and titrate PRN 7. Acute on chronic kidney disease: Cr 1.3 which appears slightly increased from baseline. Likely prerenal with decreased PO and take prior to presentation. EF normal. Gentle IV fluids. Avoid nephrotoxic agents as possible. Repeat CMP in the morning. 8. Hypothyroidism: per hx. TSH 0.027. Repeat TSH 0, nonexistent. Free T4 0.70 , free T3 1 0.55. Patient has known pituitary tumor follows with endocrinology. Continue home levothyroxine. 9. Adrenal insufficiency: With known pituitary tumor. 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 No acute intervention needed per neurology. Continue home steroids. 10. DVT prophylaxis: coumadin Disposition: Discharged to SNF 05/07/2017 (2) CKD (chronic kidney disease) stage 3, GFR 30-59 ml/min Current Visit: No Status: Chronic (3) HTN (hypertension) Current Visit: No Status: Chronic Qualifiers: Hypertension type: essential hypertension Qualified Code(s): I10 - Essential (primary) hypertension (4) Paroxysmal atrial fibrillation Current Visit: Yes Status: Chronic (5) Type 2 diabetes mellitus Current Visit: Yes Status: Chronic Qualifiers: Diabetes mellitus complication status: with unspecified complications Diabetes mellitus terminal clerk insulin use: without terminal clerk use Qualified Code( s): E11.8 - Type 2 diabetes mellitus with unspecified complications - Subjective Interval history: Seen and examined at bedside; no acute changes in assessment to report. at bedside and updated. Patient remains alert and oriented to self, denies chest pain, no shortness of breath. Discussed with RN and an eventful night. - Constitutional Vitals: Temp Pulse Resp BP Pulse Ox 97.3 F L 85 16 121/83 95 05/06/17 15:28 05/06/17 15:28 05/06/17 15:28 05/06/17 15:28 05/06/17 15:28 General appearance: Present: A&O X 1, pleasant, no acute distress - Skin Additional comments: Hives to chest secondary to telemetry patches. Internal Medicine: Result - Labs CBC & Chem 7: 05/06/17 04:19 05/06/17 04:19 Labs: Short CBC 05/06/17 Range/Units 04:19 WBC 7.2 (4.3-11.1) K/mcL Hgb 12.9 (12.9-16.9) g/dL Hct 37.1 L (37.5-50.1) % Plt Count 283 (140-400) K/mcL BMP 05/06/17 04:19 Sodium 140 Potassium 3.7 Chloride 104 Carbon Dioxide 26 BUN 18 Creatinine 1.13 Glucose 197 H Calcium 8.9 Liver Function 05/06/17 Range/Units 04:19 Total Bilirubin 0.4 (0.2-1.2) mg/dL AST 15 (5-34) Units/L ALT 16 (0-55) Units/L Alkaline Phosphatase 60 (38-126) Units/L Albumin 2.8 L (3.5-5.0) g/dL - ABG Interpretation ABG results: PT/INR, D-dimer PT 24.6 Seconds (9.4-12.1) H 05/06/17 04:19 Consult Discharge Plan - Plan Referrals: Chrissy Welsh, ALEX [Primary Care Provider] -
[2017-05-06] MEDS: *HR* Warfarin 5 MG TABLET PO SCH (17:13)
[2017-05-07 04:53] LABS: Hematocrit 38.2 % (37.5-50.1); Hemoglobin 13.3 g/dL (12.9-16.9); Mean Corpuscular HGB Conc 34.8 g/dL (31.6-35.5); Mean Corpuscular Hemoglobin 30.6 pg (28.0-33.3); Mean Platelet Volume 9.1 fL (9.4-12.4); Platelet Count 287 K/mcL (140-400); Red Blood Count 4.34 M/mcL (4.19-5.50)
[2017-05-07 05:00] LABS: INR 2.6; Prothrombin Time 28.9 Seconds (9.4-12.1)
[2017-05-07 05:12] LABS: Alanine Aminotransferase 15 Units/L (0-55); Albumin/Globulin Ratio 0.8 (1.1-2.2); Alkaline Phosphatase 64 Units/L (38-126); Aspartate Amino Transferase 15 Units/L (5-34); BUN/Creatinine Ratio 16 (6-26); Bilirubin,Total 0.4 mg/dL (0.2-1.2); Blood Urea Nitrogen 22 mg/dL (8-26); Calcium 9.1 mg/dL (8.6-10.8); Carbon Dioxide 29 mEq/L (19-29); Chloride 102 mEq/L (98-109); Globulin 3.6 g/dL (2.4-3.5); Glucose 196 mg/dL (70-99); Osmolality,Calculated 299 (280-300); Potassium 3.9 mEq/L (3.5-4.5); Sodium 140 mEq/L (136-145); Total Protein 6.6 g/dL (6.0-8.3); eGFR For African Americans > 60 (> 60); eGFR For Non-African Americans 51 (> 60)
[2017-05-07] MEDS: levETIRAcetam 250 MG TABLET PO SCH (05:53)
[2017-05-07 07:27] VITALS: BP 130/72
[2017-05-07] MEDS ORDERED: 0.9 % Sodium Chloride 500 ML IVC ONE (07:59)
[2017-05-07] MEDS: Multivit/Ca/Min/Fe/FA 1 TAB TABLET PO SCH (08:10)
[2017-05-07] MEDS: Hydrocortisone 10 MG TABLET PO SCH (08:11)
[2017-05-07] MEDS: Aspirin Enteric Coated 81 MG Tablet PO SCH (08:11)
[2017-05-07] MEDS: Cholecalciferol (D-3) 1,000 UNIT TABLET PO SCH (08:12)
[2017-05-07] MEDS: Insulin LISPRO 300 UNITS/3 ML VIAL SQ SCH ×2 (08:12→12:13)
--- NOTE | 2017-05-07 10:17 | Discharge Summary ---
Date of Encounter: 05/07/17 Time of Encounter: 10:04 - Discharge Diagnosis (1) CVA, old, hemiparesis Priority: Primary Status: Chronic Comments: Fredy Carter is a 82-year-old male with past medical history CVA, A. fib on Coumadin, dementia, diabetes, hypertension and seizure disorder who presented to [facility] on 05/03/2017 after falling at home and concern of right-sided weakness. He was placed in observation status for CVA rule out. He was found to have a new, small acute infarct. He was evaluated by PT/OT who recommended SNF discharge. He was discharged to [facility] on 05/07/2017 in stable condition. 1. CVA: per hx with residual right sided weakness. Presented with fall on day of admission with increased right-sided weakness. Brain MRI with acute punctate lacunar infarct in the left temporo-occipital region. TTE with normal EF, no evidence of PFO or cardiac source of emboli. Evaluated by neurology who noted a small area of diffusion defect, concerning for TIA. Continue home ASA, Coumadin, statin. PT/OT recommending SNF. 2. Fall: on day of presentation. Right tib-fib x-ray with chronic appearing fracture of proximal fibula and distal tibia otherwise nonacute. Fracture unlikely eligible for surgical intervention considering chronicity of fracture and patient's advanced age with comorbidities. Can follow up outpatient with orthopedics. 3. Atrial fibrillation: per hx. Rate controlled. Discussed risks versus benefits of anticoagulation with and she wishes to continue Coumadin at this time. Continue home BB, Coumadin. 4. Dementia: per hx. Mentation at baseline per (alert to self only). Cont home Aricept 5. Diabetes: per hx. Hgb A1c 7%. Resume oral hypoglycemics at discharge. Blood sugar can be monitored at SNF. 6 HTN: per hx. BP controlled. Cont home BP medications. 7. Acute on chronic kidney disease: Cr 1.3 which appears slightly increased from baseline. Skin small bolus prior to discharge. [facility] 8. Hypothyroidism: per hx. TSH 0.027. Patient has known pituitary tumor and follows with endocrinology. Continue home levothyroxine. 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 Adrenal insufficiency: With known pituitary tumor. 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 Evaluated by neurology who noted no acute intervention needed. Continue home steroids. 10. Seizure disorder: per hx. Cont home AEDs. Seizure precautions. (2) CKD (chronic kidney disease) stage 3, GFR 30-59 ml/min Priority: Primary Status: Chronic (3) HTN (hypertension) Priority: Primary Status: Chronic Qualifiers: Hypertension type: essential hypertension Qualified Code(s): I10 - Essential (primary) hypertension (4) Paroxysmal atrial fibrillation Priority: Primary Status: Chronic (5) Type 2 diabetes mellitus Priority: Primary Status: Chronic Qualifiers: Diabetes mellitus complication status: with unspecified complications Diabetes mellitus farm agent insulin use: without mcc use Qualified Code( s): E11.8 - Type 2 diabetes mellitus with unspecified complications - Discharge Medications Home Medications: Aspirin [Lo-Dose Aspirin EC] 81 mg PO DAILY 10/04/16 [History] Atenolol [Tenormin] 12.5 mg PO DAILY 10/04/16 [History] Cholecalciferol (Vitamin D3) [Vitamin D3] 2,000 unit PO DAILY 10/04/16 [History] Citalopram Hydrobromide [Citalopram HBr] 10 mg PO DAILY 10/04/16 [History] Ferrous Sulfate [Iron] 325 mg PO BID 10/04/16 [History] Glimepiride [Amaryl] 2 mg PO DAILY 10/04/16 [History] Hydrocortisone [Cortef] 10 mg PO QPM 10/04/16 [History] Hydrocortisone [Cortef] 15 mg PO QAM 10/04/16 [History] Multivit-Min/FA/Lycopen/Lutein [Adults 50+ Multivitamin Tablet] 1 tab PO DAILY 10/04/16 [History] Omeprazole [PriLOSEC] 20 mg PO DAILY 10/04/16 [History] Warfarin [Coumadin] 5 mg PO QPM 10/04/16 [History] levETIRAcetam [Keppra] 500 mg PO Q12HR 10/04/16 [History] Donepezil [Aricept] 10 mg PO HS 05/03/17 [History] Levothyroxine [Synthroid] 112 mcg PO 0630 05/03/17 [History] Lovastatin [Mevacor] 20 mg PO HS 05/03/17 [History] Allergies/Adverse Reactions: 3 Allergy/AdvReac Type Severity Reaction Status Date / Time Hydromorphone [From Dilaudid] Allergy See Verified 03/28/17 15:09 Comments Date of admission: 05/04/17 15:00 Primary care physician: Chrissy Welsh CNP Consults: 05/04/17 16:00 Consult to Neurology [CONS] Routine Consulting Provider: Neurology [facility] Reason for Consult: acute CVA Call Completed: Yes Discharging clinician: Marie Londono Anticipated date of discharge: 05/07/17 - Patient Status Disposition: Transfer SNF Condition: Good Functional capacity at discharge: wheelchair bound Overall status at discharge: patient is back to baseline - Discharge Instructions Follow Up With: Chrissy Welsh CNP [Primary Care Provider] - Steve Jamil MD [Partnered Physician] - - Diet and Activity Activity: as per physical therapy Diet: diabetic diet, low fat, low cholesterol Interval History: Seen and examined at bedside. No acute changes and assessment to report. Uneventful night. Remains pleasantly confused, has no complaints. at bedside and updated. We will be discharging to [facility]. Hospital course: see assessment and plan for hospital course - Time Spent with Patient Total time spent providing and/or coordinating discharge services: Greater than 30 minutes (43 minutes spent on discharge) - Constitutional Vitals: Temp Pulse Resp BP Pulse Ox 97.4 F L 72 16 130/72 96 05/07/17 07:25 05/07/17 07:25 05/07/17 07:25 05/07/17 07:25 05/07/17 07:25 General appearance: Present: A&O X 1, pleasant, no acute distress - Head Head exam: Present: atraumatic, normocephalic - Eye Eye exam: Present: PERRL, conjuntiva pink, sclera anicteric Pupils: Present: PERRL - Neck Neck exam general surgery: Present: supple, trachea midline. Absent: lymphadenopathy - Respiratory Respiratory exam: Present: CTAB. Absent: accessory muscle use, rales, rhonchi, wheezes - Cardiovascular Cardiovascular exam: Present: RRR, +S1, +S2. Absent: diastolic murmur, gallop, rubs, systolic murmur - GI/Abdominal GI/Abdominal exam: Present: normal bowel sounds, soft, no peritoneal signs. Absent: distended, tenderness - Extremities Exam Extremities exam: Present: warm, radial pulses palpable and symmetrical. Absent : calf tenderness, cyanotic, pedal edema - Neurological Exam Neurological exam: Present: alert (Alert to self only), CN II-XII intact, strengths equal and symetr throughout (Right arm and right leg strength 34 out of 5). Absent: pronater drift, facial droop, speech deficit - Skin Skin exam: Present: dry, intact - Stroke Contraindication Not Initiating IV-Tpa: Not Indicated - Symptoms Rapidly Improving Has Patient Been Evaluated by Rehab for Stroke: Yes
--- NOTE | 2017-05-07 10:27 | Physician Discharge Referral ---
ExtendedCare Referral Info Transfer To: [facility] Provider in Charge: Marie Londono CNP Provider in Charge after Transfer: Other (SNF physician) Institutional Level of Care: Skilled - Diagnosis (1) CVA, old, hemiparesis Status: Chronic (2) CKD (chronic kidney disease) stage 3, GFR 30-59 ml/min Status: Chronic (3) HTN (hypertension) Status: Chronic (4) Paroxysmal atrial fibrillation Status: Chronic (5) Type 2 diabetes mellitus Status: Chronic - Transfer Medications Home Medications: Aspirin [Lo-Dose Aspirin EC] 81 mg PO DAILY 10/04/16 [History] Atenolol [Tenormin] 12.5 mg PO DAILY 10/04/16 [History] Cholecalciferol (Vitamin D3) [Vitamin D3] 2,000 unit PO DAILY 10/04/16 [History] Citalopram Hydrobromide [Citalopram HBr] 10 mg PO DAILY 10/04/16 [History] Ferrous Sulfate [Iron] 325 mg PO BID 10/04/16 [History] Glimepiride [Amaryl] 2 mg PO DAILY 10/04/16 [History] Hydrocortisone [Cortef] 10 mg PO QPM 10/04/16 [History] Hydrocortisone [Cortef] 15 mg PO QAM 10/04/16 [History] Multivit-Min/FA/Lycopen/Lutein [Adults 50+ Multivitamin Tablet] 1 tab PO DAILY 10/04/16 [History] Omeprazole [PriLOSEC] 20 mg PO DAILY 10/04/16 [History] Warfarin [Coumadin] 5 mg PO QPM 10/04/16 [History] levETIRAcetam [Keppra] 500 mg PO Q12HR 10/04/16 [History] Donepezil [Aricept] 10 mg PO HS 05/03/17 [History] Levothyroxine [Synthroid] 112 mcg PO 0630 05/03/17 [History] Lovastatin [Mevacor] 20 mg PO HS 05/03/17 [History] Allergies/Adverse Reactions: 3 Allergy/AdvReac Type Severity Reaction Status Date / Time Hydromorphone [From Dilaudid] Allergy See Verified 03/28/17 15:09 Comments - Respiratory Orders None Smoking Cessation: Smoking cessation has been advised. For more information, call the [place] Tobacco Quit Line at 2-634-FJLC-NOW. - Lab Orders Lab Orders: Other (include drug levels w/frequency) (Recommend repeat CMP to follow up with JENNIFER) - Advance Directives Code Status: Full Code - Mobility Orders Other (Per PT) - Rehabiliation Orders Rehab Potential: Fair Rehab Orders: Evaluation for Physical Therapy, Evaluation for Occupational Therapy - Diet Orders No Added Salt (PAIGE), No Concentrated Sweets CERTIFICATION: I certify that the transfer of the above named patient to an Extended Care Facility is necessary for the continuing treatment of the diagnosis listed. The above information is true and accurate reflection of patient's current condition. Confidential - Redisclosure prohibited without a patient's written consent.
== END 2017-05-07 14:16 | DRG 65 ==
LOC: EMEROO 14:34 → 3BNU 14:34
PROVIDERS: ADMIT Hospitalist; ATTEND Registered Nurse

== ENCOUNTER 2017-10-03 16:33 | Inpatient (IN) ==
--- NOTE | 2017-10-03 16:41 | Emergency Department Note ---
START Narrative - START START: I examined this patient and my medical decision-making was reviewed with the emergency medicine resident. I agree with the documented findings, disposition and treatment plan as described except to the extent set forth below. Patient seen with emergency medicine resident Dr. Catie Staley, Please see a copy of her note for details of the H&P, ED evaluation, management and disposition. I have independently evaluated the patient and confirmed appropriate portions of the history and physical exam. Briefly: 82-year-old male by EMS from his home for coffee ground emesis. Patient comes in visibly distended having active emesis of what appears to be feculent bilious-type vomiting consistent with a bowel obstruction. NG tube attempted but the patient could not tolerate it. She will get IV fluids anti- medics screening labs and noncontrast abdominal pelvic CT. Admission anticipated, disposition pending, provided 30 minutes of critical care services to this patient.
[2017-10-03] MEDS ORDERED: 0.9 % Sodium Chloride 1,000 ML IVC ONE ×3 (16:44→19:49)
[2017-10-03] MEDS ORDERED: Acetaminophen 650 MG RECTAL SUPP RC ONE (16:45)
--- NOTE | 2017-10-03 16:48 | Emergency Department Note ---
Disposition Clinical Impression: Abdominal pain Qualifiers: Abdominal location: unspecified location Qualified Code(s): R10.9 - Unspecified abdominal pain Disposition: Still a Patient Condition: Fair Referrals: Chrissy Welsh CNP [Primary Care Provider] - Forms: Work/School Release, ED Satisfaction Letter Time of Disposition: 19:19 General Adult HPI - General Chief complaint: ED Abdominal Pain Stated complaint: vomiting/bowl obstrustion Time Seen by Provider: 10/03/17 16:36 Nursing Notes Reviewed: Yes Vital Signs Reviewed: Yes - History of Present Illness HPI Narrative: Patient brought in by EMS for vomiting coffee-ground emesis. This began this morning. Episodes of dark stools last night. Is on Coumadin for anticoagulation. When he arrives here he is vomiting a feculent material. The initial vomitus did appear to be coffee-ground. Patient is at baseline demented. He is maintaining his airway however we have an side up high in bed due to his vomitus. He is complaining of abdominal pain. - Related Data Home Medications Medication Instructions Recorded Confirmed Aspirin [Lo-Dose Aspirin EC] 81 mg PO DAILY 10/04/16 05/03/17 Atenolol [Tenormin] 12.5 mg PO DAILY 10/04/16 05/03/17 Cholecalciferol (Vitamin D3) 2,000 unit PO DAILY 10/04/16 05/03/17 [Vitamin D3] Citalopram Hydrobromide 10 mg PO DAILY 10/04/16 05/03/17 [Citalopram HBr] Ferrous Sulfate [Iron] 325 mg PO BID 10/04/16 05/03/17 Glimepiride [Amaryl] 2 mg PO DAILY 10/04/16 05/03/17 Hydrocortisone [Cortef] 10 mg PO QPM 10/04/16 05/03/17 Hydrocortisone [Cortef] 15 mg PO QAM 10/04/16 05/03/17 Multivit-Min/FA/Lycopen/Lutein 1 tab PO DAILY 10/04/16 05/03/17 [Adults 50+ Multivitamin Tablet] Omeprazole [PriLOSEC] 20 mg PO DAILY 10/04/16 05/03/17 Warfarin [Coumadin] 5 mg PO QPM 10/04/16 05/03/17 levETIRAcetam [Keppra] 500 mg PO Q12HR 10/04/16 05/03/17 Donepezil [Aricept] 10 mg PO HS 05/03/17 05/03/17 Levothyroxine [Synthroid] 112 mcg PO 0630 05/03/17 05/03/17 Lovastatin [Mevacor] 20 mg PO HS 05/03/17 05/03/17 Allergies Allergy/AdvReac Type Severity Reaction Status Date / Time Hydromorphone [From Dilaudid] Allergy See Verified 03/28/17 15:09 Comments Limitations: ROS unobtainable due to patients medical condition Past Medical History - Past Medical History Attestation: Yes The following information was validated with the patient. Source: obtained from family Medical history: Reports: CVA, dementia Surgical history: Reports: appendectomy, cholecystectomy, colectomy, knee replacement, orthopedic, other, sinus surgery, vascular surgery, other Psychiatric history: Reports: anxiety, depression, other - Social History Smoking Status: Never smoker Smokeless Tobacco Status: No Alcohol use: Reports: none Drug use: Reports: none Physical Exam - General Limitations: altered mental status (Baseline dementia) General appearance: alert, in distress (Actively Vomiting.) - Head Head exam: atraumatic, normocephalic, normal inspection - Eye Eye exam: Present: normal appearance, PERRL, EOMI. Absent: scleral icterus - ENT ENT exam: normal exam, normal oropharynx, mucous membranes moist - Neck Neck exam: Present: normal inspection, full ROM, trachea midline. Absent: tenderness - Chest Chest inspection: Present: normal inspection, symmetric chest wall rise - Respiratory Respiratory exam: Present: normal lung sounds bilaterally. Absent: respiratory distress, accessory muscle use - Cardiovascular Cardiovascular exam: Present: tachycardia, irregular rhythm - Abdominal Exam Abdominal exam: Present: soft, tenderness (Diffusely). Absent: distention, rigidity - Extremities Exam Extremities exam: Present: normal inspection, full ROM. Absent: tenderness, pedal edema - Neurological Exam Neurological exam: Present: alert - Psychiatric Psychiatric exam: Present: anxious - Skin Skin exam: Present: warm, dry, intact, normal color Course Course Narrative: Patient brought in by EMS for vomiting coffee-ground emesis. Started this morning. Did have one episode in front of them. Patient does have a history of dementia and is confused. This is his baseline. On arrival patient is vomiting a bilious material has a feculent odor and appearance to it. We are attempting to place an NG at this time. Anti-medics are being given. Also attempting IV access. Patient's states that yesterday he was having some dark stools. She states this morning he had a coffee-ground emesis and then around 2 PM he started having a bilious emesis. She is requesting Dr. rebollar if any surgeries need to happen. He is the one that does his abdominal surgeries. She states that he did have a normal bowel movement yesterday however it was dark. - Reevaluation(s) Reevaluation #1: Patient is tachycardic despite 2 L of fluid. He does have a history of A. fib. He is febrile. We have ordered rectal Tylenol. We are still attempting to get a CT scan. An NG was placed patient was given Zofran to help with vomiting. Time: 18:23 - Consultations Consultation #1: Dr. Rebollar contacted. He was made aware of our concern for an upper GI bleed. This was due to patient's initial coffee-ground emesis. He is also made aware the patient was now vomiting feculent material. We informed him that we were obtaining a CT scan at this time this was delayed due to patient not being able to lay down for the CT due to his vomiting. Our call appeared to be abruptly ended Time: 18:20 Vital Signs Temperature 103.1 F H 10/03/17 17:14 Pulse Rate 119 10/03/17 17:14 Respiratory Rate 26 10/03/17 17:14 Blood Pressure 145/79 10/03/17 17:14 O2 Sat by Pulse Oximetry 90 10/03/17 17:14 Temperature 103.1 F H 10/03/17 17:14 Pulse Rate 126 10/03/17 18:30 Respiratory Rate 20 10/03/17 18:30 Blood Pressure 122/76 10/03/17 18:30 O2 Sat by Pulse Oximetry 96 10/03/17 18:30 Oxygen Delivery Oxygen Delivery Room Air Medical Decision Making - Medical Records Medical records reviewed: Yes I reviewed the patient's medical records. - Lab Data Lab results reviewed: Yes I reviewed the patient's lab results. Result diagrams: 10/03/17 17:02 10/03/17 18:36 Lab Results 03/18/18 03/18/18 03/18/18 Range/Units 17:02 18:06 18:36 WBC 10.3 (4.3-11.1) K/mcL RBC 4.95 (4.19-5.50) M/mcL Hgb 15.1 (12.9-16.9) g/dL Hct 44.2 (37.5-50.1) % MCV 89.3 (83.0-100.0) fL MCH 30.5 (28.0-33.3) pg MCHC 34.2 (31.6-35.5) g/dL RDW 13.1 (11.5-14.5) % Plt Count 258 (140-400) K/mcL MPV 9.6 (9.4-12.4) fL Immature Gran % 0.3 (0-4) % Seg Neutrophils % 85.6 % Lymphocytes % 7.8 % Monocytes % 4.5 % Eosinophils % 1.7 % Basophils % 0.1 % Neutrophils # 8.8 (1.6-8.9) K/mcL Lymphocytes # 0.8 (0.6-4.6) K/mcL Monocytes # 0.5 (0.0-1.3) K/mcL Eosinophils # 0.2 (0.0-0.6) K/mcL Basophils # 0.0 (0.0-0.2) K/mcL Sodium 140 (136-145) mEq/L Potassium 4.3 (3.5-5.1) mEq/L Chloride 106 (98-107) mEq/L Carbon Dioxide 26 (23-29) mEq/L BUN 23 (8-23) mg/dL Creatinine 1.21 (0.70-1.30) mg/dL Est GFR ( Amer) > 60 (> 60) Est GFR (Non-Af Amer) 58 L (> 60) BUN/Creatinine Ratio 19 (6-26) Glucose 235 H (70-105) mg/dL Calculated Osmolality 301 H (280-300) Calcium 8.4 L (8.6-10.3) mg/dL Total Bilirubin 0.6 (0.3-1.0) mg/dL Direct Bilirubin 0.2 (0.0-0.2) mg/dL Indirect Bilirubin 0.4 (0.0-1.2) mg/dL AST 17 (13-39) Units/L ALT 17 (7-52) Units/L Alkaline Phosphatase 63 (34-104) Units/L Serum Total Protein 6.2 L (6.4-8.9) g/dL Albumin 3.4 L (3.5-5.7) g/dL Globulin 2.8 (2.4-3.5) g/dL Albumin/Globulin Ratio 1.2 (1.1-2.2) Amylase 61 (29-103) Units/L Lipase 99 H (11-82) Units/L Urine Color Yellow (Yellow) Urine Clarity Clear (Clear) Urine pH 7.0 (5.0-8.0) pH Units Ur Specific [place] 1.016 (1.010-1.025) Urine Protein Trace (Neg-Trace) mg/dL Urine Glucose (UA) 100 H (Normal) mg/dL Urine Ketones Negative (Negative) mg/dL Urine Blood Negative (Negative) Urine Nitrite Negative (Negative) Urine Bilirubin Negative (Negative) Urine Urobilinogen Normal (Normal) mg/dL Ur Leukocyte Esterase Negative (Negative) Ur Culture Indicated? NO (NO) - Radiology Data Radiology results reviewed: Yes I reviewed the patient's radiology results. Abdomen/Pelvis CT 10/03/17 16:37 IMPRESSION: 1. No acute abnormality detected. 2. Ventral wall hernia near the level of the umbilicus, containing a loop of small bowel, but without evidence of obstruction. 3. Nonobstructing right nephrolithiasis. 4. Small hiatal hernia. D/ / Aman Posey MD / Aman Posey MD Interpreting Provider: Aman Posey MD Chest X-Ray 10/03/17 16:46 IMPRESSION: 1. No acute cardiopulmonary process. 2. Pulmonary vascular congestion and/or chronic interstitial change. D/ / Sarath Michael MD / Sarath Michael MD Interpreting Provider: Sarath Michael MD - EKG Data EKG #1 EKG attestation: Yes I reviewed and interpreted this EKG. EKG results narrative: A. fib with RVR at a rate of 141. QRS duration is 88. QTC is 314. QTC 396. No signs of acute ischemia. Previous EKG shows patient in atrial fibrillation at a rate of 80.
[2017-10-03 17:22] LABS: Basophils % 0.1 %; Eosinophils # 0.2 K/mcL (0.0-0.6); Eosinophils % 1.7 %; Hematocrit 44.2 % (37.5-50.1); Hemoglobin 15.1 g/dL (12.9-16.9); Immature Granulocytes % 0.3 % (0-4); Lymphocytes # 0.8 K/mcL (0.6-4.6); Lymphocytes % 7.8 %; Mean Corpuscular HGB Conc 34.2 g/dL (31.6-35.5); Mean Corpuscular Hemoglobin 30.5 pg (28.0-33.3); Mean Corpuscular Volume 89.3 fL (83.0-100.0); Mean Platelet Volume 9.6 fL (9.4-12.4); Monocytes # 0.5 K/mcL (0.0-1.3); Monocytes % 4.5 %; Neutrophils # 8.8 K/mcL (1.6-8.9); Platelet Count 258 K/mcL (140-400); Red Blood Count 4.95 M/mcL (4.19-5.50); Red Cell Distribution Width 13.1 % (11.5-14.5); Segmented Neutrophils % 85.6 %
[2017-10-03] MEDS ORDERED: *HR* LORazepam 2 MG/ML VIAL IVP ONE ×2 (17:29→20:04)
[2017-10-03] MEDS ORDERED: *HR* LORazepam 2 MG/ML VIAL ONE (17:30)
[2017-10-03] MEDS ORDERED: Famotidine 20 MG/2 ML VIAL IVP ONE (17:43)
[2017-10-03] MEDS ORDERED: *HR* FentaNYL (PF) 100 MCG/2 ML VIAL ONE (17:49)
[2017-10-03 18:22] LABS: Bilirubin,Urine Negative (Negative); Blood,Urine Negative (Negative); Clarity,Urine Clear (Clear); Color,Urine Yellow (Yellow); Glucose,Urine (UA) 100 mg/dL (Normal); Ketones,Urine Negative (Negative); Leukocyte Esterase,Urine Negative (Negative); Nitrite,Urine Negative (Negative); Protein,Urine Trace mg/dL (Neg-Trace); Specific Gravity,Urine 1.016 (1.010-1.025); Urobilinogen,Urine Normal (Normal)
[2017-10-03 19:14] LABS: Alanine Aminotransferase 17 Units/L (7-52); Albumin 3.4 g/dL (3.5-5.7); Albumin/Globulin Ratio 1.2 (1.1-2.2); Alkaline Phosphatase 63 Units/L (34-104); Amylase 61 Units/L (29-103); Aspartate Amino Transferase 17 Units/L (13-39); BUN/Creatinine Ratio 19 (6-26); Bilirubin,Direct 0.2 mg/dL (0.0-0.2); Bilirubin,Indirect 0.4 mg/dL (0.0-1.2); Bilirubin,Total 0.6 mg/dL (0.3-1.0); Blood Urea Nitrogen 23 mg/dL (8-23); Calcium 8.4 mg/dL (8.6-10.3); Carbon Dioxide 26 mEq/L (23-29); Chloride 106 mEq/L (98-107); Globulin 2.8 g/dL (2.4-3.5); Glucose 235 mg/dL (70-105); Lipase 99 Units/L (11-82); Osmolality,Calculated 301 (280-300); Potassium 4.3 mEq/L (3.5-5.1); Sodium 140 mEq/L (136-145); Total Protein 6.2 g/dL (6.4-8.9); eGFR For African Americans > 60 (> 60); eGFR For Non-African Americans 58 (> 60)
[2017-10-03 19:16] LABS: INR 2.4; Prothrombin Time 25.9 Seconds (9.4-12.1)
--- NOTE | 2017-10-03 19:29 | General Surgery Consult Note ---
Date of Encounter: 10/03/17 Time of Encounter: 18:50 History of Present Illness Consult date: 10/03/17 Reason for consult: other (nausea, vomiting; concern for SBO and upper GI hemorrhage) Requesting physician: Catie Staley History of present illness: 82-year-old male referred, at the patient's request, after presenting to the emergency Department by squad for further evaluation and treatment of abrupt onset abdominal pain, nausea and vomiting earlier today. The patient's described a dark stool last evening and apparently coffee-ground emesis was described and removed to the emergency department. Patient is well known to me with a significant medical history of multiple transabdominal surgeries, multiple ventral incisional hernias; diabetes; stroke with residual right hemiparesis, chronic anticoagulation; CKD-3; underlying dementia; mixed hyperlipidemia; hypertension; and hypothyroidism. The patient also has a history of anxiety and depression. I was asked to see the patient for upper GI bleed (I am covering gastroenterology this evening) as well as possible bowel obstruction. Surgical history includes appendectomy, cholecystectomy, colectomy, sinus surgery, vascular surgery, knee replacement and others orthopedic procedures. Allergies: hydromorphone which causes nausea and vomiting On my presentation to the emergency department the patient was chilling and experiencing rigors. Reported history of 103.1 degrees on presentation had "just broken". The patient was tachycardic ranging from 119-148; respiratory rate was 24-26, blood pressure was 110/84 to 145/79. The patient was awake, and responsive to verbal stimulus and command. An NG had been placed - this shows brown, feculent fluid within the tubing and bilious fluid in the reservoir. Blood may be present though it appears minimal and may be due to placement of the NG. Lungs were clear Cardiac the rate was rapid Abdomen: Soft, without obvious tenderness. Multiple surgical scars consistent with the patient's prior surgical history. There are several ventral incisional hernias which are stable, nontender, without incarcerated tissue. Bowel sounds were hypoactive. CT abdomen and pelvis was completed - I was able to review these films; findings include mild dependent atelectasis; a small nodule identified within the right lung base but considered benign and unchanged from previous CT; diffuse fatty liver infiltration with no acute hepatic abnormality identified; evidence of previous cholecystectomy; normal spleen adrenals and pancreas though visualization was limited by the lack of contrast; ventral wall hernia adjacent to the umbilicus containing a loop of small bowel without obvious obstruction - this is a stable finding and has been followed through my office for several years without significant change. Other than the ventral incisional hernia containing a loop of small bowel no other small bowel abnormalities were detected; the colon was also unremarkable. Incidental notation of bilateral inguinal hernias containing fat only - these hernias are not clinically detectable. Chest x-ray demonstrated no acute cardiopulmonary process. Pulmonary vascular congestion and/or chronic interstitial changes are described. Laboratories: White count 10.3, hemoglobin 15.1, hematocrit 44.2; differential within normal limits. PT/INR which was not available at the time I was contacted by the emergency department is now available and shows appropriate anticoagulation consistent with the patient's medical history. PTT 25.9, INR 2.4. Impression: 82-year-old male, with significant medical history of prior stroke with residual right hemiparesis, likely Atrial fib and chronic anticoagulation; Diabetes and CKD-3 presents to the emergency department with fever to 103.1, nausea and vomiting. The describes dark bowel movement yesterday but on closer questioning did not describe black tarry stool or melena. There are no signs of a bowel obstruction that warrant surgical intervention at this time. The concern for an UGI bleed is noted but the current H&H is 15.1/44.2. Historical data indicate a usual range 13.3/39.3 - 14.1/42.5. The patient demonstrated H&H 12.8/36.5 on 05/05/2017. Recommendation - NPO except necessary meds monitor serial H&H hold any further coumadin or other anti coagulation. No active reversal of anticoagulation unless s/s significant blood loss/hemorrhage continue evaluation for source of fever, chills and rigors - suspect viral etiology I will follow with you. Past Med Surg Social Fam HX - Past Medical History Medical history: CVA, dementia Psychiatric history: anxiety, depression, other - Past Surgical History Surgical History: appendectomy, cholecystectomy, colectomy, knee replacement, orthopedic, other, sinus surgery, vascular surgery, other - Social History Smoking Status: Never smoker Smokeless Tobacco Status: No Alcohol use: none Drug use: none - Family History Brother Living Status: Hx Family Cancer: Yes Medications and Allergies Aspirin [Lo-Dose Aspirin EC] 81 mg PO DAILY 10/04/16 [History] Atenolol [Tenormin] 12.5 mg PO DAILY 10/04/16 [History] Cholecalciferol (Vitamin D3) [Vitamin D3] 2,000 unit PO DAILY 10/04/16 [History] Citalopram Hydrobromide [Citalopram HBr] 10 mg PO DAILY 10/04/16 [History] Ferrous Sulfate [Iron] 325 mg PO BID 10/04/16 [History] Glimepiride [Amaryl] 2 mg PO DAILY 10/04/16 [History] Hydrocortisone [Cortef] 10 mg PO QPM 10/04/16 [History] Hydrocortisone [Cortef] 15 mg PO QAM 10/04/16 [History] Multivit-Min/FA/Lycopen/Lutein [Adults 50+ Multivitamin Tablet] 1 tab PO DAILY 10/04/16 [History] Omeprazole [PriLOSEC] 20 mg PO DAILY 10/04/16 [History] Warfarin [Coumadin] 5 mg PO QPM 10/04/16 [History] levETIRAcetam [Keppra] 500 mg PO Q12HR 10/04/16 [History] Donepezil [Aricept] 10 mg PO HS 05/03/17 [History] Levothyroxine [Synthroid] 112 mcg PO 0630 05/03/17 [History] Lovastatin [Mevacor] 20 mg PO HS 05/03/17 [History] 3 Allergy/AdvReac Type Severity Reaction Status Date / Time Hydromorphone [From Dilaudid] Allergy See Verified 03/28/17 15:09 Comments Review of Systems All systems PM: The remainder of the systems were reviewed and are negative General Surgery Exam Initial Vital Signs Temp Pulse Resp BP Pulse Ox 103.1 F H 119 26 145/79 90 10/03/17 17:14 10/03/17 17:14 10/03/17 17:14 10/03/17 17:14 10/03/17 17:14 Exam Initial Vital Signs Temp Pulse Resp BP Pulse Ox 103.1 F H 119 26 145/79 90 10/03/17 17:14 10/03/17 17:14 10/03/17 17:14 10/03/17 17:14 10/03/17 17:14 Results - Labs 10/03/17 17:02 10/03/17 18:36 Abnormal lab results PT 25.9 Seconds (9.4-12.1) H 10/03/17 16:59 Est GFR (Non-Af Amer) 58 (> 60) L 10/03/17 18:36 Glucose 235 mg/dL (70-105) H 10/03/17 18:36 Calculated Osmolality 301 (280-300) H 10/03/17 18:36 Lactic Acid 3.3 mmol/L (0.5-2.2) H 10/03/17 18:51 Calcium 8.4 mg/dL (8.6-10.3) L 10/03/17 18:36 Serum Total Protein 6.2 g/dL (6.4-8.9) L 10/03/17 18:36 Albumin 3.4 g/dL (3.5-5.7) L 10/03/17 18:36 Lipase 99 Units/L (11-82) H 10/03/17 18:36 Urine Glucose (UA) 100 mg/dL (Normal) H 10/03/17 18:06 Diabetes panel 10/03/17 Range/Units 18:36 Sodium 140 (136-145) mEq/L Potassium 4.3 (3.5-5.1) mEq/L Chloride 106 (98-107) mEq/L Carbon Dioxide 26 (23-29) mEq/L BUN 23 (8-23) mg/dL Creatinine 1.21 (0.70-1.30) mg/dL Glucose 235 H (70-105) mg/dL Calcium 8.4 L (8.6-10.3) mg/dL AST 17 (13-39) Units/L ALT 17 (7-52) Units/L Alkaline Phosphatase 63 (34-104) Units/L Albumin 3.4 L (3.5-5.7) g/dL Calcium panel 10/03/17 Range/Units 18:36 Calcium 8.4 L (8.6-10.3) mg/dL Albumin 3.4 L (3.5-5.7) g/dL Pituitary panel 10/03/17 Range/Units 18:36 Sodium 140 (136-145) mEq/L Potassium 4.3 (3.5-5.1) mEq/L Chloride 106 (98-107) mEq/L Carbon Dioxide 26 (23-29) mEq/L BUN 23 (8-23) mg/dL Creatinine 1.21 (0.70-1.30) mg/dL Glucose 235 H (70-105) mg/dL Calcium 8.4 L (8.6-10.3) mg/dL Adrenal panel 10/03/17 Range/Units 18:36 Sodium 140 (136-145) mEq/L Potassium 4.3 (3.5-5.1) mEq/L Chloride 106 (98-107) mEq/L Carbon Dioxide 26 (23-29) mEq/L BUN 23 (8-23) mg/dL Creatinine 1.21 (0.70-1.30) mg/dL Glucose 235 H (70-105) mg/dL Calcium 8.4 L (8.6-10.3) mg/dL Total Bilirubin 0.6 (0.3-1.0) mg/dL AST 17 (13-39) Units/L ALT 17 (7-52) Units/L Alkaline Phosphatase 63 (34-104) Units/L Albumin 3.4 L (3.5-5.7) g/dL All other labs normal. Consult Discharge Plan - Plan Referrals: Chrissy Welsh, ALEX [Primary Care Provider] -
--- NOTE | 2017-10-03 20:40 | Emergency Department Note ---
Disposition Clinical Impression: Nausea vomiting and diarrhea, Atrial fibrillation with RVR Abdominal pain Qualifiers: Abdominal location: unspecified location Qualified Code(s): R10.9 - Unspecified abdominal pain GI bleed Qualifiers: GI bleed type/associated pathology: unspecified gastrointestinal hemorrhage type Qualified Code(s): K92.2 - Gastrointestinal hemorrhage, unspecified Disposition: Admitted As Inpatient Condition: Fair Time of Disposition: 20:41 General Adult HPI - General Chief complaint: ED Nausea/Vomiting/Diarrhea Stated complaint: vomiting/bowl obstrustion Time Seen by Provider: 10/03/17 16:36 Source: patient Limitations: altered mental status (Baseline dementia) Nursing Notes Reviewed: Yes Vital Signs Reviewed: Yes - History of Present Illness Pain Scale: 5 - Related Data Home Medications Medication Instructions Recorded Confirmed Aspirin [Lo-Dose Aspirin EC] 81 mg PO DAILY 10/04/16 05/03/17 Atenolol [Tenormin] 12.5 mg PO DAILY 10/04/16 05/03/17 Cholecalciferol (Vitamin D3) 2,000 unit PO DAILY 10/04/16 05/03/17 [Vitamin D3] Citalopram Hydrobromide 10 mg PO DAILY 10/04/16 05/03/17 [Citalopram HBr] Ferrous Sulfate [Iron] 325 mg PO BID 10/04/16 05/03/17 Glimepiride [Amaryl] 2 mg PO DAILY 10/04/16 05/03/17 Hydrocortisone [Cortef] 10 mg PO QPM 10/04/16 05/03/17 Hydrocortisone [Cortef] 15 mg PO QAM 10/04/16 05/03/17 Multivit-Min/FA/Lycopen/Lutein 1 tab PO DAILY 10/04/16 05/03/17 [Adults 50+ Multivitamin Tablet] Omeprazole [PriLOSEC] 20 mg PO DAILY 10/04/16 05/03/17 Warfarin [Coumadin] 5 mg PO QPM 10/04/16 05/03/17 levETIRAcetam [Keppra] 500 mg PO Q12HR 10/04/16 05/03/17 Donepezil [Aricept] 10 mg PO HS 05/03/17 05/03/17 Levothyroxine [Synthroid] 112 mcg PO 0630 05/03/17 05/03/17 Lovastatin [Mevacor] 20 mg PO HS 05/03/17 05/03/17 Allergies Allergy/AdvReac Type Severity Reaction Status Date / Time Hydromorphone [From Dilaudid] Allergy See Verified 03/28/17 15:09 Comments Past Medical History - Past Medical History Medical history: Reports: CVA, dementia Surgical history: Reports: appendectomy, cholecystectomy, colectomy, knee replacement, orthopedic, other, sinus surgery, vascular surgery, other Psychiatric history: Reports: anxiety, depression, other - Social History Smoking Status: Never smoker Smokeless Tobacco Status: No Alcohol use: Reports: none Drug use: Reports: none Physical Exam - General Limitations: altered mental status (Baseline dementia) General appearance: alert, in distress (Actively Vomiting.) Course Course Narrative: Assumed care from Dr. Staley at [address] [place] [id number]. Patient is a 82-year-old male who presented with nausea and vomiting and diarrhea. Had black stools as well as coffee-ground emesis concerning for a GI bleed. Patient was evaluated in the emergency department by Dr. paula who will be consulted. Lab work was pending which was unremarkable. Mildly elevated lipase of 99. Hemoglobin 15. Patient's symptoms are currently controlled. He is also in atrial fibrillation with RVR. Since he has a fever of 103 here, this is likely contributing to his tachycardia. Patient has received a total of 3 L normal saline. I discussed with hospitalist Dr. Tavarez who has accepted patient for admission. Vital Signs Temperature 103.1 F H 10/03/17 17:14 Pulse Rate 119 10/03/17 17:14 Respiratory Rate 26 10/03/17 17:14 Blood Pressure 145/79 10/03/17 17:14 O2 Sat by Pulse Oximetry 90 10/03/17 17:14 Temperature 98.8 F 10/03/17 19:43 Pulse Rate 114 10/03/17 20:50 Respiratory Rate 18 10/03/17 19:43 Blood Pressure 138/63 10/03/17 20:50 O2 Sat by Pulse Oximetry 93 10/03/17 20:50 Oxygen Delivery Oxygen Delivery Room Air Medical Decision Making - Medical Records Medical records reviewed: Yes I reviewed the patient's medical records. - Lab Data Lab results reviewed: Yes I reviewed the patient's lab results. Result diagrams: 10/03/17 17:02 10/03/17 18:36 Lab Results 10/03/17 10/03/17 10/03/17 Range/Units 16:59 17:02 18:06 WBC 10.3 (4.3-11.1) K/mcL RBC 4.95 (4.19-5.50) M/mcL Hgb 15.1 (12.9-16.9) g/dL Hct 44.2 (37.5-50.1) % MCV 89.3 (83.0-100.0) fL MCH 30.5 (28.0-33.3) pg MCHC 34.2 (31.6-35.5) g/dL RDW 13.1 (11.5-14.5) % Plt Count 258 (140-400) K/mcL MPV 9.6 (9.4-12.4) fL Immature Gran % 0.3 (0-4) % Seg Neutrophils % 85.6 % Lymphocytes % 7.8 % Monocytes % 4.5 % Eosinophils % 1.7 % Basophils % 0.1 % Neutrophils # 8.8 (1.6-8.9) K/mcL Lymphocytes # 0.8 (0.6-4.6) K/mcL Monocytes # 0.5 (0.0-1.3) K/mcL Eosinophils # 0.2 (0.0-0.6) K/mcL Basophils # 0.0 (0.0-0.2) K/mcL PT 25.9 H (9.4-12.1) Seconds INR 2.4 Sodium (136-145) mEq/L Potassium (3.5-5.1) mEq/L Chloride (98-107) mEq/L Carbon Dioxide (23-29) mEq/L BUN (8-23) mg/dL Creatinine (0.70-1.30) mg/dL Est GFR ( Amer) (> 60) Est GFR (Non-Af Amer) (> 60) BUN/Creatinine Ratio (6-26) Glucose (70-105) mg/dL Calculated Osmolality (280-300) Lactic Acid (0.5-2.2) mmol/L Calcium (8.6-10.3) mg/dL Total Bilirubin (0.3-1.0) mg/dL Direct Bilirubin (0.0-0.2) mg/dL Indirect Bilirubin (0.0-1.2) mg/dL AST (13-39) Units/L ALT (7-52) Units/L Alkaline Phosphatase (34-104) Units/L Serum Total Protein (6.4-8.9) g/dL Albumin (3.5-5.7) g/dL Globulin (2.4-3.5) g/dL Albumin/Globulin Ratio (1.1-2.2) Amylase (29-103) Units/L Lipase (11-82) Units/L Urine Color Yellow (Yellow) Urine Clarity Clear (Clear) Urine pH 7.0 (5.0-8.0) pH Units Ur Specific [place] 1.016 (1.010-1.025) Urine Protein Trace (Neg-Trace) mg/dL Urine Glucose (UA) 100 H (Normal) mg/dL Urine Ketones Negative (Negative) mg/dL Urine Blood Negative (Negative) Urine Nitrite Negative (Negative) Urine Bilirubin Negative (Negative) Urine Urobilinogen Normal (Normal) mg/dL Ur Leukocyte Esterase Negative (Negative) Ur Culture Indicated? NO (NO) Gastric Occult Blood (Negative) Blood Type Antibody Screen 10/03/17 10/03/17 10/03/17 Range/Units 18:36 18:36 18:51 WBC (4.3-11.1) K/mcL RBC (4.19-5.50) M/mcL Hgb (12.9-16.9) g/dL Hct (37.5-50.1) % MCV (83.0-100.0) fL MCH (28.0-33.3) pg MCHC (31.6-35.5) g/dL RDW (11.5-14.5) % Plt Count (140-400) K/mcL MPV (9.4-12.4) fL Immature Gran % (0-4) % Seg Neutrophils % % Lymphocytes % % Monocytes % % Eosinophils % % Basophils % % Neutrophils # (1.6-8.9) K/mcL Lymphocytes # (0.6-4.6) K/mcL Monocytes # (0.0-1.3) K/mcL Eosinophils # (0.0-0.6) K/mcL Basophils # (0.0-0.2) K/mcL PT (9.4-12.1) Seconds INR Sodium 140 (136-145) mEq/L Potassium 4.3 (3.5-5.1) mEq/L Chloride 106 (98-107) mEq/L Carbon Dioxide 26 (23-29) mEq/L BUN 23 (8-23) mg/dL Creatinine 1.21 (0.70-1.30) mg/dL Est GFR ( Amer) > 60 (> 60) Est GFR (Non-Af Amer) 58 L (> 60) BUN/Creatinine Ratio 19 (6-26) Glucose 235 H (70-105) mg/dL Calculated Osmolality 301 H (280-300) Lactic Acid 3.3 H (0.5-2.2) mmol/L Calcium 8.4 L (8.6-10.3) mg/dL Total Bilirubin 0.6 (0.3-1.0) mg/dL Direct Bilirubin 0.2 (0.0-0.2) mg/dL Indirect Bilirubin 0.4 (0.0-1.2) mg/dL AST 17 (13-39) Units/L ALT 17 (7-52) Units/L Alkaline Phosphatase 63 (34-104) Units/L Serum Total Protein 6.2 L (6.4-8.9) g/dL Albumin 3.4 L (3.5-5.7) g/dL Globulin 2.8 (2.4-3.5) g/dL Albumin/Globulin Ratio 1.2 (1.1-2.2) Amylase 61 (29-103) Units/L Lipase 99 H (11-82) Units/L Urine Color (Yellow) Urine Clarity (Clear) Urine pH (5.0-8.0) pH Units Ur Specific [place] (1.010-1.025) Urine Protein (Neg-Trace) mg/dL Urine Glucose (UA) (Normal) mg/dL Urine Ketones (Negative) mg/dL Urine Blood (Negative) Urine Nitrite (Negative) Urine Bilirubin (Negative) Urine Urobilinogen (Normal) mg/dL Ur Leukocyte Esterase (Negative) Ur Culture Indicated? (NO) Gastric Occult Blood (Negative) Blood Type B POSITIVE Antibody Screen NEGATIVE 10/03/17 Range/Units 19:49 WBC (4.3-11.1) K/mcL RBC (4.19-5.50) M/mcL Hgb (12.9-16.9) g/dL Hct (37.5-50.1) % MCV (83.0-100.0) fL MCH (28.0-33.3) pg MCHC (31.6-35.5) g/dL RDW (11.5-14.5) % Plt Count (140-400) K/mcL MPV (9.4-12.4) fL Immature Gran % (0-4) % Seg Neutrophils % % Lymphocytes % % Monocytes % % Eosinophils % % Basophils % % Neutrophils # (1.6-8.9) K/mcL Lymphocytes # (0.6-4.6) K/mcL Monocytes # (0.0-1.3) K/mcL Eosinophils # (0.0-0.6) K/mcL Basophils # (0.0-0.2) K/mcL PT (9.4-12.1) Seconds INR Sodium (136-145) mEq/L Potassium (3.5-5.1) mEq/L Chloride (98-107) mEq/L Carbon Dioxide (23-29) mEq/L BUN (8-23) mg/dL Creatinine (0.70-1.30) mg/dL Est GFR ( Amer) (> 60) Est GFR (Non-Af Amer) (> 60) BUN/Creatinine Ratio (6-26) Glucose (70-105) mg/dL Calculated Osmolality (280-300) Lactic Acid (0.5-2.2) mmol/L Calcium (8.6-10.3) mg/dL Total Bilirubin (0.3-1.0) mg/dL Direct Bilirubin (0.0-0.2) mg/dL Indirect Bilirubin (0.0-1.2) mg/dL AST (13-39) Units/L ALT (7-52) Units/L Alkaline Phosphatase (34-104) Units/L Serum Total Protein (6.4-8.9) g/dL Albumin (3.5-5.7) g/dL Globulin (2.4-3.5) g/dL Albumin/Globulin Ratio (1.1-2.2) Amylase (29-103) Units/L Lipase (11-82) Units/L Urine Color (Yellow) Urine Clarity (Clear) Urine pH (5.0-8.0) pH Units Ur Specific [place] (1.010-1.025) Urine Protein (Neg-Trace) mg/dL Urine Glucose (UA) (Normal) mg/dL Urine Ketones (Negative) mg/dL Urine Blood (Negative) Urine Nitrite (Negative) Urine Bilirubin (Negative) Urine Urobilinogen (Normal) mg/dL Ur Leukocyte Esterase (Negative) Ur Culture Indicated? (NO) Gastric Occult Blood Positive A (Negative) Blood Type Antibody Screen - Radiology Data Radiology results reviewed: Yes I reviewed the patient's radiology results. Abdomen/Pelvis CT 10/03/17 16:37 IMPRESSION: 1. No acute abnormality detected. 2. Ventral wall hernia near the level of the umbilicus, containing a loop of small bowel, but without evidence of obstruction. 3. Nonobstructing right nephrolithiasis. 4. Small hiatal hernia. D/ / Aman Posey MD / Aman Posey MD Interpreting Provider: Aman Posey MD Chest X-Ray 10/03/17 16:46 IMPRESSION: 1. No acute cardiopulmonary process. 2. Pulmonary vascular congestion and/or chronic interstitial change. D/ / Sarath Michael MD / Sarath Michael MD Interpreting Provider: aSrath Michael MD Attestation Statement - Attestation Attestation: I, David Carty MD, personally evaluated this patient and discussed their management with the resident physician. I reviewed the resident's note and agree with the documented findings, medical decision making, and plan of care. This patient was signed out at shift change from Dr. Staley and Dr. Ferraro. Please refer to their notes for complete details of the history and physical examination. At shift change patient is awaiting some final test results prior to contacting the hospitalist for admission. Patient presented with abdominal pain and nausea and vomiting and diarrhea. Coughing ground black emesis with feculent odor. Patient was seen and evaluated in the emergency department by his surgeon, Dr. paula. On examination patient is a well-developed obese elderly male with history of dementia. He is alert but essentially answers no to all questions which states he usually does. No cyanosis or diaphoresis. Breath sounds are equal bilaterally. Heart irregularly irregular with a mild tachycardia. Abdomen soft with increased bowel sounds. Labs x-rays and CT reviewed. The hospitalist, Dr. Tavarez, was consulted and accepted admission of the patient.
[2017-10-03] MEDS ORDERED: Hydrocortisone Sodium Succ 100 MG/2 ML VIAL IVP ONE (21:46)
[2017-10-03] MEDS ORDERED: Acetaminophen 650 MG RECTAL SUPP RC PRN (22:30)
[2017-10-03] MEDS ORDERED: Acetaminophen IV 1,000 MG/100 ML INFUS..BTL IVPB ONE (22:42)
[2017-10-03] MEDS ORDERED: Naloxone 0.4 MG/ML INJ IVP PRN (22:46)
[2017-10-03] MEDS ORDERED: *HR* Dextrose 50 % in Water (Syg) 50 ML SYRINGE IVP PRN (22:50)
[2017-10-03] MEDS ORDERED: Dextrose Gel 15 GM/37.5 ML TUBE PO PRN ×2 (22:50)
[2017-10-03] MEDS ORDERED: D5% in Water 1,000 ML IVC PRN (22:50)
[2017-10-03] MEDS ORDERED: Pantoprazole 40 MG in 0.9 % Sodium Chloride Mini Bag 100 ML IVC SCH (23:00)
--- NOTE | 2017-10-03 23:01 | Internal Med History&Physical ---
Date of Encounter: 10/03/17 Time of Encounter: 22:00 Assessment and Plan (1) Fever Current visit: Yes Status: Acute Etiology is undetermined. Probably a viral infection. However, need to rule out bacteria infection. Patient denies headache. chest x-ray, UA, and abdominal CAT scan unremarkable. Patient has symptoms of nausea vomiting and diarrhea. - Blood culture, flu test - Patient meets SIRS criteria, empirically start Zosyn. Follow-up blood culture results. - Tylenol as needed for symptomatic treatment Qualifiers: Fever type: unspecified Qualified Code(s): R50.9 - Fever, unspecified (2) DVT prophylaxis Current visit: Yes Status: Acute EPCD, no AC due to GI bleed (3) Adrenal insufficiency Current visit: Yes Status: Acute Patient takes hydrocortisone at home. We will start stress dose IV hydrocortisone. (4) Atrial fibrillation with RVR Current visit: Yes Status: Acute Patient has history of A. fib on Coumadin. Coumadin is on hold because of GI bleed. Patient has heart rate 120-140, it is probably due to hypovolemia caused by GI bleed, and/or, fever. Will treat underlying disease with IV fluid and fever control. Place patient on metoprolol 2.5 mg IV every 6 hours when necessary only when heart rate over 120 and SBP is not lower than 110. Closely monitor patient in telemetric (5) GI bleed Current visit: Yes Status: Acute Patient has coffee ground emesis and FOBT positive. Consider GI bleed. - Appreciate surgical consult - Place patient on nothing by mouth, IV fluid, PPI drip - Closely monitor vitals every 30 minutes and H&H every 6 hours Qualifiers: GI bleed type/associated pathology: unspecified gastrointestinal hemorrhage type Qualified Code(s): K92.2 - Gastrointestinal hemorrhage, unspecified (6) Nausea vomiting and diarrhea Current visit: Yes Status: Acute Etiology is undetermined. CT abdominal shows no obstruction. Consider viral gastritis. - IV fluid, nothing by mouth - Symptomatic treatment with Zofran - Patient has diarrhea, will send stool GI panel (7) CVA, old, aphasia Current visit: No Status: Chronic Continue closely monitor patient. Antiplatelet and anticoagulation has to be temporarily held because of GI bleed (8) Seizure disorder as sequela of cerebrovascular accident Current visit: No Status: Chronic Patient to take Keppra. Will switch to IV form of Keppra because of nothing by mouth (9) Type 2 diabetes mellitus Current visit: No Status: Chronic Patient takes glipizide at home. Place patient on sliding scale insulin every 6 hours Qualifiers: Diabetes mellitus fci insulin use: without long term care administrator use Diabetes mellitus complication status: with unspecified complications Qualified Code(s) : E11.8 - Type 2 diabetes mellitus with unspecified complications Internal Medicine - H&P: HPI Chief complaint: Nausea and vomiting Admitted From: Home Plans for Post Hospital Care: Home History of present illness: Mr. Carter is a 82 year old male with history of CVA with right-sided residual weakness, diabetes, adrenal insufficiency on chronic hydrocortisone, hypothyroidism, chronic A. fib on Coumadin, seizure disorder, presented to ER for nausea vomiting since this morning 10 AM. Patient is nonverbal due to previous CVA, history was obtained from patient's . Patient has vomiting, started from clear liquid and started to have coffee ground emesis since 2:15 PM. Patient also has one episode of diarrhea, stool is dark brown. Patient has dark stool days ago. In emergency room, patient was found fever. FOBT positive. Patient denies headache. Chest x-ray, CT abdomen, and UA unremarkable. Patient was admitted for GI bleed and fever. I have discussed the CODE STATUS with patient's . Patient has living will and his told me he does not want CPR but accept temporary intubation. DNR CCA placed. Past Med Surg Social Fam HX - Past Medical History Medical history: CVA, dementia Psychiatric history: anxiety, depression, other - Past Surgical History Surgical History: appendectomy, cholecystectomy, colectomy, knee replacement, orthopedic, other, sinus surgery, vascular surgery, other - Social History Smoking Status: Never smoker Smokeless Tobacco Status: No Alcohol use: none Drug use: none - Family History Brother Living Status: Hx Family Cancer: Yes Internal Medicine - H&P: Meds Aspirin [Lo-Dose Aspirin EC] 81 mg PO DAILY 10/04/16 [History] Atenolol [Tenormin] 12.5 mg PO DAILY 10/04/16 [History] Cholecalciferol (Vitamin D3) [Vitamin D3] 2,000 unit PO DAILY 10/04/16 [History] Citalopram Hydrobromide [Citalopram HBr] 10 mg PO DAILY 10/04/16 [History] Ferrous Sulfate [Iron] 325 mg PO BID 10/04/16 [History] Glimepiride [Amaryl] 2 mg PO DAILY 10/04/16 [History] Hydrocortisone [Cortef] 10 mg PO QPM 10/04/16 [History] Hydrocortisone [Cortef] 15 mg PO QAM 10/04/16 [History] Multivit-Min/FA/Lycopen/Lutein [Adults 50+ Multivitamin Tablet] 1 tab PO DAILY 10/04/16 [History] Omeprazole [PriLOSEC] 20 mg PO DAILY 10/04/16 [History] Warfarin [Coumadin] 5 mg PO QPM 10/04/16 [History] levETIRAcetam [Keppra] 500 mg PO Q12HR 10/04/16 [History] Donepezil [Aricept] 10 mg PO HS 05/03/17 [History] Levothyroxine [Synthroid] 112 mcg PO 0630 05/03/17 [History] Lovastatin [Mevacor] 20 mg PO HS 05/03/17 [History] 3 Allergy/AdvReac Type Severity Reaction Status Date / Time Hydromorphone [From Dilaudid] Allergy See Verified 03/28/17 15:09 Comments All Systems PM: A 10-system review of systems was performed and is negative for pertinent findings except as documented above in the HPI. - Constitutional Vitals: Temp Pulse Resp BP Pulse Ox 103.3 F H 140 31 116/61 93 10/03/17 22:23 10/03/17 22:23 10/03/17 22:23 10/03/17 22:23 10/03/17 22:23 General appearance: Present: mild distress - Head Head exam: Present: atraumatic, normocephalic - Eye Eye exam: Present: PERRL, conjuntiva pink, sclera anicteric Pupils: Present: PERRL - Neck Neck exam general surgery: Present: supple, trachea midline. Absent: lymphadenopathy - Respiratory Respiratory exam: Present: CTAB. Absent: accessory muscle use, rales, rhonchi, wheezes - Cardiovascular Cardiovascular exam: Present: irregular rhythm, +S1, +S2, tachycardia. Absent: diastolic murmur, gallop, rubs, systolic murmur - GI/Abdominal GI/Abdominal exam: Present: normal bowel sounds, soft, tenderness (Mild tenderness in 4 Q, without guarding or rebound), no peritoneal signs. Absent: distended - Extremities Exam Extremities exam: Present: warm, radial pulses palpable and symmetrical. Absent : calf tenderness, cyanotic, pedal edema - Neurological Exam Neurological exam: Present: CN II-XII intact, motor sensory deficit (Weakness on right side due to previous CVA), oriented X3, no focal deficits. Absent: pronater drift, facial droop, speech deficit - Skin Skin exam: Present: dry, intact Internal Med - H&P Results - Labs CBC & Chem 7: 10/03/17 17:02 10/03/17 18:36 - EKG Data -: EKG Interpreted by Myself (Lashanda KUO)
[2017-10-03] MEDS ORDERED: Ondansetron 4 MG/2 ML VIAL IVP PRN (23:02)
[2017-10-03] MEDS: 0.9 % Sodium Chloride 1,000 ML IVC SCH (23:09)
[2017-10-03 23:14] LABS: Hematocrit 39.9 % (37.5-50.1)
[2017-10-03 23:15] LABS: Hemoglobin 13.4 g/dL (12.9-16.9)
[2017-10-04] MEDS: Piperacillin/Tazobactam 3.375 GM in 0.9 % Sodium Chloride Mini Bag 100 ML IVPB SCH ×2 (00:23→08:26)
[2017-10-04] MEDS: Pantoprazole 40 MG in 0.9 % Sodium Chloride Mini Bag 100 ML IVC SCH ×3 (00:24→10:04)
[2017-10-04] MEDS: Insulin LISPRO 300 UNITS/3 ML VIAL SQ SCH ×5 (00:28→20:59)
[2017-10-04] MEDS ORDERED: Hydrocortisone Sodium Succ 100 MG/2 ML VIAL IVP SCH ×2 (00:30)
[2017-10-04] MEDS: *HR* Metoprolol 5 MG/5 ML VIAL IVP PRN (01:38)
[2017-10-04] MEDS: Hydrocortisone Sodium Succ 100 MG/2 ML VIAL IVP SCH ×4 (05:00→23:50)
[2017-10-04 05:12] LABS: Basophils % 0.1 %; Eosinophils % 0.1 %; Hematocrit 39.2 % (37.5-50.1); Hemoglobin 13.1 g/dL (12.9-16.9); Immature Granulocytes % 0.3 % (0-4); Lymphocytes # 0.5 K/mcL (0.6-4.6); Mean Corpuscular HGB Conc 33.4 g/dL (31.6-35.5); Mean Corpuscular Volume 89.9 fL (83.0-100.0); Mean Platelet Volume 9.1 fL (9.4-12.4); Monocytes # 0.2 K/mcL (0.0-1.3); Monocytes % 2.9 %; Neutrophils # 7.1 K/mcL (1.6-8.9); Platelet Count 228 K/mcL (140-400); Red Blood Count 4.36 M/mcL (4.19-5.50); Red Cell Distribution Width 13.1 % (11.5-14.5); Segmented Neutrophils % 90.6 %
[2017-10-04 05:17] LABS: INR 1.8; Prothrombin Time 19.3 Seconds (9.4-12.1)
[2017-10-04 05:31] LABS: BUN/Creatinine Ratio 19 (6-26); Blood Urea Nitrogen 22 mg/dL (8-23); Calcium 7.9 mg/dL (8.6-10.3); Carbon Dioxide 23 mEq/L (23-29); Chloride 110 mEq/L (98-107); Glucose 272 mg/dL (70-105); Magnesium 1.5 mg/dL (1.6-2.6); Osmolality,Calculated 305 (280-300); Potassium 4.5 mEq/L (3.5-5.1); Sodium 141 mEq/L (136-145); eGFR For African Americans > 60 (> 60); eGFR For Non-African Americans > 60 (> 60)
[2017-10-04] MEDS: 0.9 % Sodium Chloride 1,000 ML IVC SCH (06:43)
--- NOTE | 2017-10-04 09:57 | Internal Med Progress Note ---
<Joey Espinoza - Last Filed: 10/04/17 13:02> Date of Encounter: 10/04/17 Time of Encounter: 09:57 - Assessment and plan (1) Fever Current Visit: Yes Status: Acute Assessment and plan: Patient currently afebrile with a temperature of 97.6. Had a temperature of 103 yesterday. Patient has a normal chest x-ray, normal urinalysis, negative flu. Currently on Zosyn for antimicrobial therapy as we await the results of blood cultures. Will order respiratory infection panel. Qualifiers: Fever type: unspecified Qualified Code(s): R50.9 - Fever, unspecified (2) Nausea vomiting and diarrhea Current Visit: Yes Status: Acute Assessment and plan: Symptoms currently controlled at this time with Zofran. Continue to monitor. Most likely the source of the fever. (3) GI bleed Current Visit: Yes Status: Acute Assessment and plan: Currently followed by Dr. paula with general surgery. Hemoglobin has remained stable. Do not see any evidence of blood from the NG tube at this time. Coumadin is currently being held. Qualifiers: GI bleed type/associated pathology: unspecified gastrointestinal hemorrhage type Qualified Code(s): K92.2 - Gastrointestinal hemorrhage, unspecified (4) Atrial fibrillation with RVR Current Visit: Yes Status: Acute Assessment and plan: Patient is slightly tachycardic here today at 99. Suspect the tachycardia to be secondary to whatever illness the patient may have had. However, we will obtain TSH at this time. Patient has past medical history of hypothyroidism. We are currently holding Coumadin at this time as patient is being followed for a possible GI bleed. Hemoccult positive and reported coffee-ground emesis. INR is currently subtherapeutic at 1.8 (5) DVT prophylaxis Current Visit: Yes Status: Acute Assessment and plan: We will place order for SCDs. Currently holding Coumadin as mentioned above. (6) Adrenal insufficiency Current Visit: Yes Status: Acute Assessment and plan: Patient has known history of adrenal insufficiency. Patient currently on IV hydrocortisone at this time. Blood pressure currently 148/86. Continue management. (7) CVA, old, hemiparesis Current Visit: No Status: Chronic - Subjective Interval history: No events overnight. Patient's symptoms of nausea and vomiting controlled. NG tube appears to have yellow drainage. Brownish/goldish fluid noted in the NG tube at time of physical exam. - Constitutional Vitals: Temp Pulse Resp BP Pulse Ox 97.6 F 99 22 148/86 95 10/04/17 07:26 10/04/17 07:26 10/04/17 07:26 10/04/17 07:26 10/04/17 07:26 Exam: Patient sleeping and resting, in no acute distress. - Head Head exam: Present: atraumatic Additional comments: NG tube placed - Respiratory Respiratory exam: Present: CTAB. Absent: accessory muscle use - Cardiovascular Cardiovascular exam: Present: irregular rhythm, tachycardia. Absent: JVD - GI/Abdominal GI/Abdominal exam: Present: soft. Absent: firm, guarding, rebound, no peritoneal signs Additional comments: Brownish material at the end of tubing and in canister. The beginning of tubing has yellow material. Internal Medicine: Result - Labs CBC & Chem 7: 10/04/17 05:02 10/04/17 05:02 Labs: Short CBC 10/03/17 10/04/17 Range/Units 22:54 05:02 WBC 7.9 (4.3-11.1) K/mcL Hgb 13.4 D 13.1 (12.9-16.9) g/dL Hct 39.9 39.2 (37.5-50.1) % Plt Count 228 (140-400) K/mcL Neutrophils # 7.1 (1.6-8.9) K/mcL BMP 10/04/17 05:02 Sodium 141 Potassium 4.5 Chloride 110 H Carbon Dioxide 23 BUN 22 Creatinine 1.15 Glucose 272 H Calcium 7.9 L - ABG Interpretation ABG results: PT/INR, D-dimer PT 19.3 Seconds (9.4-12.1) H 10/04/17 05:02 - VTE Documentation of Mechanical Device: Intermittent pneumatic compression device Consult Discharge Plan - Plan Referrals: Chrissy Welsh CNP [Primary Care Provider] - 10/12/17 2:00 pm <Cheikh Ferguson H - Last Filed: 10/04/17 17:46> Date of Encounter: 10/04/17 - Constitutional Vitals: Temp Pulse Resp BP Pulse Ox 98.4 F 101 18 141/89 94 10/04/17 16:33 10/04/17 16:33 10/04/17 16:33 10/04/17 16:33 10/04/17 16:33 Internal Medicine: Result - Labs CBC & Chem 7: 10/04/17 16:28 10/04/17 05:02 Labs: Short CBC 10/03/17 10/04/17 10/04/17 Range/Units 22:54 05:02 12:19 WBC 7.9 (4.3-11.1) K/mcL Hgb 13.4 D 13.1 12.9 (12.9-16.9) g/dL Hct 39.9 39.2 38.5 (37.5-50.1) % Plt Count 228 (140-400) K/mcL Neutrophils # 7.1 (1.6-8.9) K/mcL 10/04/17 Range/Units 16:28 WBC (4.3-11.1) K/mcL Hgb 13.3 (12.9-16.9) g/dL Hct 40.0 (37.5-50.1) % Plt Count (140-400) K/mcL Neutrophils # (1.6-8.9) K/mcL BMP 10/04/17 05:02 Sodium 141 Potassium 4.5 Chloride 110 H Carbon Dioxide 23 BUN 22 Creatinine 1.15 Glucose 272 H Calcium 7.9 L - ABG Interpretation ABG results: PT/INR, D-dimer PT 19.3 Seconds (9.4-12.1) H 10/04/17 05:02 - Impressions Impressions Chest CT 10/04/17 14:41 IMPRESSION: There are very small bilateral pleural effusions with adjacent airspace disease, probably atelectasis although pneumonia and edema would remain in the differential. A focal infiltrate is not identified otherwise. There is bronchial wall thickening diffusely, but without mucous plugging. D/ / Aman Posey MD / Aman Posey MD Interpreting Provider: Aman Posey MD - Attending Attestation Sepsis secondary to possible aspiration pneumonia Start Unasyn IV, speech pathology consulted, aspiration precautions I examined this patient and my medical decision-making was reviewed with the Resident Physician. I agree with the documented findings, disposition and treatment plan as described except to the extent set forth below.
[2017-10-04 12:39] LABS: Hematocrit 38.5 % (37.5-50.1)
[2017-10-04 13:23] LABS: Adenovirus Not Detected (Not Detect); Bordetella Pertussis Not Detected (Not Detect); Chlamydophila pneumoniae Not Detected (Not Detect); Coronavirus 229E Not Detected (Not Detect); Coronavirus HKU1 Not Detected (Not Detect); Coronavirus NL63 Not Detected (Not Detect); Coronavirus OC43 Not Detected (Not Detect); Human Metapneumovirus Not Detected (Not Detect); Human Rhinovirus/Enterovirus Not Detected (Not Detect); Influenza A Subtype 2009 H1 Not Detected (Not Detect); Influenza A Untypeable Not Detected (Not Detect); Influenza B Not Detected (Not Detect); Mycoplasma pneumoniae Not Detected (Not Detect); Parainfluenza Virus 1 Not Detected (Not Detect); Parainfluenza Virus 2 Not Detected (Not Detect); Parainfluenza Virus 3 Not Detected (Not Detect); Parainfluenza Virus 4 Not Detected (Not Detect); Respiratory Syncytial Virus Not Detected (Not Detect)
[2017-10-04 13:27] LABS: Hemoglobin 12.9 g/dL (12.9-16.9)
[2017-10-04 16:58] LABS: Hemoglobin 13.3 g/dL (12.9-16.9)
[2017-10-04] MEDS: Ampicillin/Sulbactam 1,500 MG in 0.9 % Sodium Chloride Mini Bag 100 ML IVPB SCH ×2 (17:20→23:50)
[2017-10-04] MEDS ORDERED: Warfarin perPT PO PRN (18:00)
[2017-10-04] MEDS ORDERED: *HR* Warfarin 5 MG TABLET PO ONE (18:00)
[2017-10-04 22:50] LABS: Hematocrit 37.7 % (37.5-50.1); Hemoglobin 12.6 g/dL (12.9-16.9)
[2017-10-05] MEDS: *HR* Metoprolol 5 MG/5 ML VIAL IVP PRN (03:15)
[2017-10-05] MEDS: Ampicillin/Sulbactam 1,500 MG in 0.9 % Sodium Chloride Mini Bag 100 ML IVPB SCH ×4 (05:24→23:11)
[2017-10-05 05:34] LABS: INR 1.4; Prothrombin Time 15.6 Seconds (9.4-12.1)
[2017-10-05] MEDS: Insulin LISPRO 300 UNITS/3 ML VIAL SQ SCH ×4 (08:16→21:16)
[2017-10-05] MEDS: Hydrocortisone Sodium Succ 100 MG/2 ML VIAL IVP SCH (08:17)
[2017-10-05 09:10] LABS: Basophils % 0.1 %; Eosinophils % 0.2 %; Hematocrit 38.3 % (37.5-50.1); Hemoglobin 12.9 g/dL (12.9-16.9); Immature Granulocytes % 0.2 % (0-4); Lymphocytes # 1.6 K/mcL (0.6-4.6); Lymphocytes % 16.2 %; Mean Corpuscular HGB Conc 33.7 g/dL (31.6-35.5); Mean Corpuscular Hemoglobin 30.4 pg (28.0-33.3); Mean Corpuscular Volume 90.3 fL (83.0-100.0); Mean Platelet Volume 9.5 fL (9.4-12.4); Monocytes # 0.6 K/mcL (0.0-1.3); Monocytes % 6.1 %; Neutrophils # 7.6 K/mcL (1.6-8.9); Platelet Count 249 K/mcL (140-400); Red Blood Count 4.24 M/mcL (4.19-5.50); Red Cell Distribution Width 13.5 % (11.5-14.5); Segmented Neutrophils % 77.2 %
[2017-10-05 09:32] LABS: BUN/Creatinine Ratio 21 (6-26); Blood Urea Nitrogen 23 mg/dL (8-23); Calcium 8.4 mg/dL (8.6-10.3); Carbon Dioxide 24 mEq/L (23-29); Chloride 109 mEq/L (98-107); Glucose 247 mg/dL (70-105); Osmolality,Calculated 302 (280-300); Sodium 140 mEq/L (136-145); eGFR For African Americans > 60 (> 60); eGFR For Non-African Americans > 60 (> 60)
[2017-10-05 10:17] LABS: Thyroid Stimulating Hormone < 0.010 mcIU/mL (0.340-5.600)
--- NOTE | 2017-10-05 15:07 | Internal Med Progress Note ---
<Joey Espinoza - Last Filed: 10/05/17 15:40> Date of Encounter: 10/05/17 Time of Encounter: 15:07 - Assessment and plan (1) Fever Current Visit: Yes Status: Acute Assessment and plan: Had temperature of 103 in the emergency department. Patient currently afebrile. Chest CT reveals possible pneumonia. Currently on Unasyn day two for possible pneumonia. Qualifiers: Fever type: unspecified Qualified Code(s): R50.9 - Fever, unspecified (2) Pneumonia Current Visit: Yes Status: Acute Assessment and plan: As mentioned above Qualifiers: Pneumonia type: due to unspecified organism Laterality: unspecified laterality Lung location: unspecified part of lung Qualified Code(s): J18.9 - Pneumonia, unspecified organism (3) Nausea vomiting and diarrhea Current Visit: Yes Status: Acute Assessment and plan: Has resolved. (4) GI bleed Current Visit: Yes Status: Acute Assessment and plan: Hemoglobin and hematocrit is stable. NG tube was pulled yesterday. Gen. surgery does not have any recommendations at this time. Coumadin was restarted. Patient currently not having any bleeding. Started back on home dose of omeprazole. Qualifiers: GI bleed type/associated pathology: unspecified gastrointestinal hemorrhage type Qualified Code(s): K92.2 - Gastrointestinal hemorrhage, unspecified (5) Atrial fibrillation with RVR Current Visit: Yes Status: Acute (6) DVT prophylaxis Current Visit: Yes Status: Acute Assessment and plan: Currently on Coumadin. (7) Adrenal insufficiency Current Visit: Yes Status: Acute Assessment and plan: Restarting home medications. 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 States that he has had no episodes of nausea, vomiting, diarrhea. Nurse reports no fevers. Patient states that he is doing fine and has improved significantly. - Constitutional Vitals: Temp Pulse Resp BP Pulse Ox 97.5 F L 99 18 133/81 97 10/05/17 12:12 10/05/17 12:12 10/05/17 12:12 10/05/17 12:12 10/05/17 12:12 General appearance: Present: mild distress - Head Head exam: Present: atraumatic - Respiratory Respiratory exam: Present: rales (Mild). Absent: respiratory distress, rhonchi , wheezes - Cardiovascular Cardiovascular exam: Present: irregular rhythm, tachycardia. Absent: JVD - GI/Abdominal GI/Abdominal exam: Present: soft. Absent: distended, guarding, rebound, tenderness - Neurological Exam Neurological exam: Present: CN II-XII intact Internal Medicine: Result - Labs CBC & Chem 7: 10/05/17 08:44 10/05/17 08:44 Labs: Short CBC 10/04/17 10/04/17 10/05/17 Range/Units 16:28 22:39 08:44 WBC 9.8 (4.3-11.1) K/mcL Hgb 13.3 12.6 L 12.9 (12.9-16.9) g/dL Hct 40.0 37.7 38.3 (37.5-50.1) % Plt Count 249 (140-400) K/mcL Neutrophils # 7.6 (1.6-8.9) K/mcL BMP 10/05/17 08:44 Sodium 140 Potassium 4.0 Chloride 109 H Carbon Dioxide 24 BUN 23 Creatinine 1.11 Glucose 247 H Calcium 8.4 L - ABG Interpretation ABG results: PT/INR, D-dimer PT 15.6 Seconds (9.4-12.1) H 10/05/17 04:09 - Impressions Impressions Chest CT 10/04/17 14:41 IMPRESSION: There are very small bilateral pleural effusions with adjacent airspace disease, probably atelectasis although pneumonia and edema would remain in the differential. A focal infiltrate is not identified otherwise. There is bronchial wall thickening diffusely, but without mucous plugging. D/ / Aamn Posey MD / Aman Posey MD Interpreting Provider: Aman Posey MD - VTE Documentation of Mechanical Device: Intermittent pneumatic compression device Consult Discharge Plan - Plan Referrals: Chrissy Welsh CNP [Primary Care Provider] - 10/12/17 2:00 pm <Naman Anthony - Last Filed: 10/05/17 18:59> Date of Encounter: 10/05/17 - Assessment and plan (1) Gastroenteritis and colitis, viral Current Visit: Yes Status: Suspected (2) Paroxysmal atrial fibrillation Current Visit: No Status: Chronic (3) HTN (hypertension) Current Visit: No Status: Chronic Qualifiers: Hypertension type: essential hypertension Qualified Code(s): I10 - Essential (primary) hypertension (4) HLD (hyperlipidemia) Current Visit: No Status: Chronic Qualifiers: Hyperlipidemia type: mixed hyperlipidemia Qualified Code(s): E78.2 - Mixed hyperlipidemia (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 - Constitutional Vitals: Temp Pulse Resp BP Pulse Ox 98.2 F 87 18 128/86 97 10/05/17 16:40 10/05/17 16:40 10/05/17 12:12 10/05/17 16:40 10/05/17 12:12 Internal Medicine: Result - Labs CBC & Chem 7: 10/05/17 08:44 10/05/17 08:44 Labs: Short CBC 10/04/17 10/05/17 Range/Units 22:39 08:44 WBC 9.8 (4.3-11.1) K/mcL Hgb 12.6 L 12.9 (12.9-16.9) g/dL Hct 37.7 38.3 (37.5-50.1) % Plt Count 249 (140-400) K/mcL Neutrophils # 7.6 (1.6-8.9) K/mcL BMP 10/05/17 08:44 Sodium 140 Potassium 4.0 Chloride 109 H Carbon Dioxide 24 BUN 23 Creatinine 1.11 Glucose 247 H Calcium 8.4 L - ABG Interpretation ABG results: PT/INR, D-dimer PT 15.6 Seconds (9.4-12.1) H 10/05/17 04:09 - Attending Attestation I examined this patient and my medical decision-making was reviewed with the Resident Physician on 10/05/17. I agree with the documented findings, disposition and treatment plan as described except to the extent set forth below. Mr Carter is currently admitted for acute gastroenteritis and possible GI bleed. He remains moderate to high risk due to potential for worsening clinical status. Mr Carter has been tachycardic today. Denies CP or SOB. Still having diarrhea but no vomiting. Up in chair. No fever noted. Exam Alert. Comfortable Mucus membranes dry Heart tachy and regular Lungs clear Abd soft I/P 1. Gastroenteritis 2. Hypopit Further diagnoses and plan as above.
[2017-10-05] MEDS ORDERED: *HR* Warfarin 5 MG TABLET PO ONE (18:00)
[2017-10-05] MEDS: levETIRAcetam 250 MG TABLET PO SCH (18:33)
[2017-10-05] MEDS: Hydrocortisone 10 MG TABLET PO SCH ×2 (18:33→19:12)
[2017-10-05 20:22] LABS: Adenovirus F 40/41 PCR Not detected (Not detect); Astrovirus PCR Not detected (Not detect); C.difficile Toxin A/B by PCR Not detected (Not detect); Campylobacter by PCR Not detected (Not detect); Cryptosporidium by PCR Not detected (Not detect); Cyclospora cayetanensis PCR Not detected (Not detect); E. coli O157 by PCR Not detected (Not detect); Entamoeba histolytica PCR Not detected (Not detect); Enteroaggregative E.coli(EAEC) Not detected (Not detect); Enteropathogenic E.coli(EPEC) Not detected (Not detect); Enterotoxigenic E.coli (ETEC) Not detected (Not detect); Giardia lamblia PCR Not detected (Not detect); Norovirus GI/GII PCR ***DETECTED*** (Not detect); Plesiomonas shigelloides PCR Not detected (Not detect); Rotavirus A PCR Not detected (Not detect); Salmonella PCR Not detected (Not detect); Sapovirus PCR Not detected (Not detect); Shig/EnteroinvasiveE coli EIEC Not detected (Not detect); Shigalike tox-prod E coli STEC Not detected (Not detect); Vibrio PCR Not detected (Not detect); Vibrio cholerae PCR Not detected (Not detect); Yersinia enterocolitica PCR Not detected (Not detect)
--- NOTE | 2017-10-05 23:54 | Electrocardiograph Report ---
[place] [id number] Test Date: 2017-10-03 Pat Name: Fredy Raul Department: 103 Room: 2N14 Gender: M Patient Service Representative: FREDERICK : 1935 Requested By: Naman Anthony Order Number: [id number] Reading MD: Brenden Gerard DO Measurements Intervals [place] Rate: 141 P: [place]: 0 QRS: 43 QRSD: 88 T: 39 QT: 314 QTc: 396 Interpretive Statements ATRIAL FIBRILLATION WITH RAPID VENTRICULAR RESPONSE Electronically Signed On 10-05-2017 23:52:26 EDT by Brenden Gerard DO
[2017-10-06] MEDS ORDERED: 0.9 % Sodium Chloride Mini Bag 100 ML ONE ×3 (04:49→05:41)
[2017-10-06] MEDS: levETIRAcetam 250 MG TABLET PO SCH ×2 (05:05→18:56)
[2017-10-06 05:18] LABS: INR 1.8
[2017-10-06] MEDS: Ampicillin/Sulbactam 1,500 MG in 0.9 % Sodium Chloride Mini Bag 100 ML IVPB SCH ×4 (06:00→23:58)
[2017-10-06] MEDS: Insulin LISPRO 300 UNITS/3 ML VIAL SQ SCH ×4 (08:39→21:04)
[2017-10-06] MEDS: Hydrocortisone 10 MG TABLET PO SCH ×3 (08:49→18:56)
[2017-10-06 08:56] LABS: Basophils % 0.2 %; Eosinophils # 0.3 K/mcL (0.0-0.6); Eosinophils % 4.5 %; Hematocrit 37.6 % (37.5-50.1); Hemoglobin 12.5 g/dL (12.9-16.9); Immature Granulocytes % 0.5 % (0-4); Lymphocytes # 1.6 K/mcL (0.6-4.6); Lymphocytes % 24.5 %; Mean Corpuscular HGB Conc 33.2 g/dL (31.6-35.5); Mean Corpuscular Hemoglobin 29.8 pg (28.0-33.3); Mean Corpuscular Volume 89.7 fL (83.0-100.0); Mean Platelet Volume 9.2 fL (9.4-12.4); Monocytes # 0.5 K/mcL (0.0-1.3); Monocytes % 6.9 %; Neutrophils # 4.2 K/mcL (1.6-8.9); Platelet Count 226 K/mcL (140-400); Red Blood Count 4.19 M/mcL (4.19-5.50); Red Cell Distribution Width 13.2 % (11.5-14.5); Segmented Neutrophils % 63.4 %
[2017-10-06 09:23] LABS: BUN/Creatinine Ratio 21 (6-26); Blood Urea Nitrogen 22 mg/dL (8-23); Calcium 8.4 mg/dL (8.6-10.3); Carbon Dioxide 24 mEq/L (23-29); Chloride 108 mEq/L (98-107); Glucose 166 mg/dL (70-105); Osmolality,Calculated 295 (280-300); Potassium 3.5 mEq/L (3.5-5.1); Sodium 139 mEq/L (136-145); eGFR For African Americans > 60 (> 60); eGFR For Non-African Americans > 60 (> 60)
--- NOTE | 2017-10-06 11:28 | Internal Med Progress Note ---
<Joey Espinoza - Last Filed: 10/06/17 16:16> Date of Encounter: 10/06/17 Time of Encounter: 11:28 - Assessment and plan (1) Norovirus Current Visit: Yes Status: Acute Assessment and plan: GI panel obtained reveals norovirus. Patient been placed on contact precautions and airborne precautions at this time. Supportive care. Patient diarrhea is resolving. at home has it as well. There is concern that patient does not have enough help at home to take care of him. He has been taking more than one electrician station assistant to help patient ambulate. Patient will be evaluated by physical therapy and occupational therapy. Patient seems to qualify for help in an extended care facility. Occupational therapy and physical therapy evaluated the patient and recommend a fpc facility. knows and is okay with the plan. Obtained a basic metabolic panel today and electrolytes are within normal limits. BUN and creatinine are normal as well. (2) Fever Current Visit: Yes Status: Acute Assessment and plan: Resolved. Patient not having temperature. Source for fever probably the norovirus. Patient is on Tikosyn right now. This is for possible pneumonia that was read by chest CT. -Supportive care for norovirus -Continue Unasyn Day 3 Qualifiers: Fever type: unspecified Qualified Code(s): R50.9 - Fever, unspecified (3) Pneumonia Current Visit: Yes Status: Acute Assessment and plan: Unasyn day 3. Continue Qualifiers: Pneumonia type: due to unspecified organism Laterality: unspecified laterality Lung location: unspecified part of lung Qualified Code(s): J18.9 - Pneumonia, unspecified organism (4) Nausea vomiting and diarrhea Current Visit: Yes Status: Acute Assessment and plan: resolving. See above. (5) GI bleed Current Visit: Yes Status: Acute Assessment and plan: resolved. Qualifiers: GI bleed type/associated pathology: unspecified gastrointestinal hemorrhage type Qualified Code(s): K92.2 - Gastrointestinal hemorrhage, unspecified (6) Atrial fibrillation with RVR Current Visit: Yes Status: Acute Assessment and plan: currently rate controlled (7) DVT prophylaxis Current Visit: Yes Status: Acute Assessment and plan: currently on coumadin (8) Adrenal insufficiency Current Visit: Yes Status: Acute Assessment and plan: on home medications. Normotensive (9) CVA, old, hemiparesis Current Visit: No Status: Chronic (10) Hypothyroid Current Visit: No Status: Acute Assessment and plan: Restart home medications tomorrow Qualifiers: Hypothyroidism type: unspecified Qualified Code(s): E03.9 - Hypothyroidism , unspecified - Subjective Interval history: Patient has no events overnight. Patient had diarrhea yesterday. The few episodes prompted evaluation with a GI panel. Patient was positive for neurovirus. Contact precautions as well as airborne precautions are in place at this time. is also having same symptoms. Concern for not been able to take care of patient at home at this time. Patient not having any complaints today. Denies any abdominal pain, nausea, vomiting, chest pain, chest pressure , tightness. - Constitutional Vitals: Temp Pulse Resp BP Pulse Ox 96.7 F L 92 16 127/74 95 10/06/17 11:21 10/06/17 11:21 10/06/17 11:21 10/06/17 11:21 10/06/17 11:21 General appearance: Present: mild distress - ENT ENT exam: Present: mucous membranes moist - Neck Neck exam general surgery: Present: normal inspection. Absent: tenderness - Respiratory Respiratory exam: Present: CTAB - Cardiovascular Cardiovascular exam: Present: irregular rhythm. Absent: JVD - GI/Abdominal GI/Abdominal exam: Present: soft. Absent: guarding, rebound, rigid - Extremities Exam Extremities exam: Present: pedal edema (1+) - Psychiatric Psychiatric exam: Present: normal affect, normal mood Internal Medicine: Result - Labs CBC & Chem 7: 10/06/17 08:46 10/06/17 08:46 Labs: Short CBC 10/06/17 Range/Units 08:46 WBC 6.6 (4.3-11.1) K/mcL Hgb 12.5 L (12.9-16.9) g/dL Hct 37.6 (37.5-50.1) % Plt Count 226 (140-400) K/mcL Neutrophils # 4.2 (1.6-8.9) K/mcL BMP 10/06/17 08:46 Sodium 139 Potassium 3.5 Chloride 108 H Carbon Dioxide 24 BUN 22 Creatinine 1.04 Glucose 166 H Calcium 8.4 L - ABG Interpretation ABG results: PT/INR, D-dimer PT 20.0 Seconds (9.4-12.1) H 10/06/17 04:48 - VTE Documentation of Mechanical Device: Intermittent pneumatic compression device Consult Discharge Plan - Plan Referrals: Chrissy Welsh CNP [Primary Care Provider] - 10/12/17 2:00 pm <Naman Anthony - Last Filed: 10/06/17 18:03> Date of Encounter: 10/06/17 - Assessment and plan (1) Norovirus Current Visit: Yes Status: Acute (2) Paroxysmal atrial fibrillation Current Visit: No Status: Chronic (3) HTN (hypertension) Current Visit: No Status: Chronic Qualifiers: Hypertension type: essential hypertension Qualified Code(s): I10 - Essential (primary) hypertension (4) HLD (hyperlipidemia) Current Visit: No Status: Chronic Qualifiers: Hyperlipidemia type: mixed hyperlipidemia Qualified Code(s): E78.2 - Mixed hyperlipidemia (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 - Constitutional Vitals: Temp Pulse Resp BP Pulse Ox 98.4 F 85 18 136/80 95 10/06/17 16:20 10/06/17 16:20 10/06/17 16:20 10/06/17 16:20 10/06/17 16:20 Internal Medicine: Result - Labs CBC & Chem 7: 10/06/17 08:46 10/06/17 08:46 Labs: Short CBC 10/06/17 Range/Units 08:46 WBC 6.6 (4.3-11.1) K/mcL Hgb 12.5 L (12.9-16.9) g/dL Hct 37.6 (37.5-50.1) % Plt Count 226 (140-400) K/mcL Neutrophils # 4.2 (1.6-8.9) K/mcL BMP 10/06/17 08:46 Sodium 139 Potassium 3.5 Chloride 108 H Carbon Dioxide 24 BUN 22 Creatinine 1.04 Glucose 166 H Calcium 8.4 L - ABG Interpretation ABG results: PT/INR, D-dimer PT 20.0 Seconds (9.4-12.1) H 10/06/17 04:48 - Attending Attestation I examined this patient and my medical decision-making was reviewed with the Resident Physician on 10/06/17. I agree with the documented findings, disposition and treatment plan as described except to the extent set forth below. Mr Carter is currently admitted for acute gastroenteritis. He has been found to have norovirus. He remains moderate to high risk due to potential for worsening clinical status. Mr Carter is still having some liquid stools. No fever or chills. No abd pain. No CP or SOB. Stool PCR positive for norovirus. is ill as well. Exam alert Comfortable at this time Mucus membranes dry Heart not tachy now Lungs clear Abd soft I/P 1. Norovirus infection 2. Dehydration resolved PT/OT rec SNF - working on placement Further diagnoses and plan as above.
[2017-10-06] MEDS ORDERED: *HR* Warfarin 5 MG TABLET PO ONE (18:00)
[2017-10-07 04:28] LABS: INR 1.8
[2017-10-07] MEDS: Ampicillin/Sulbactam 1,500 MG in 0.9 % Sodium Chloride Mini Bag 100 ML IVPB SCH ×3 (05:53→17:56)
[2017-10-07] MEDS: levETIRAcetam 250 MG TABLET PO SCH ×2 (05:54→17:26)
[2017-10-07] MEDS: Insulin LISPRO 300 UNITS/3 ML VIAL SQ SCH ×3 (08:36→17:25)
[2017-10-07] MEDS: Hydrocortisone 10 MG TABLET PO SCH ×2 (08:37→17:26)
--- NOTE | 2017-10-07 14:49 | Discharge Summary ---
<Joey Espinoza - Last Filed: 10/07/17 15:28> Orders not resulted at time of discharge: Pending orders 10/08/17 04:00 Prothrombin Time INR [COAG] AM 0400 10/09/17 04:00 Prothrombin Time INR [COAG] AM 0400 10/10/17 04:00 Prothrombin Time INR [COAG] AM 0400 Date of Encounter: 10/07/17 Time of Encounter: 14:47 - Discharge Diagnosis (1) Norovirus Priority: Primary Status: Acute (2) Fever Priority: Primary Status: Acute Qualifiers: Fever type: unspecified Qualified Code(s): R50.9 - Fever, unspecified (3) Pneumonia Priority: Primary Status: Acute Qualifiers: Pneumonia type: due to unspecified organism Laterality: unspecified laterality Lung location: unspecified part of lung Qualified Code(s): J18.9 - Pneumonia, unspecified organism (4) Nausea vomiting and diarrhea Priority: Secondary Status: Acute (5) GI bleed Priority: Secondary Status: Resolved Qualifiers: GI bleed type/associated pathology: unspecified gastrointestinal hemorrhage type Qualified Code(s): K92.2 - Gastrointestinal hemorrhage, unspecified (6) Atrial fibrillation with RVR Priority: Secondary Status: Acute (7) DVT prophylaxis Priority: Secondary Status: Acute (8) Adrenal insufficiency Priority: Secondary Status: Acute (9) CVA, old, hemiparesis Priority: Secondary Status: Chronic (10) Hypothyroid Priority: Secondary Status: Acute Qualifiers: Hypothyroidism type: unspecified Qualified Code(s): E03.9 - Hypothyroidism , unspecified Hospital course: Mr. Caretr is a 82 year old male with past medical history of CVA, A. fib with RVR, hypopituitarism, dementia. Patient presented to the emergency department with nausea, vomiting, diarrhea, concern for possible GI bleed. NG tube was placed and general surgery rule out GI bleed with negative CT of the abdomen and pelvis. Patient remained hemodynamically stable here in the hospital setting. Nausea vomiting was controlled here with Zofran. CT of the chest was obtained and revealed possible pneumonia. Patient was given Zosyn initially, but then transferred to [facility]. Patient will be sent out on Augmentin for 2 days to complete his therapy for pneumonia. Patient continued to have diarrhea throughout his stay. GI infection panel was obtained and revealed norovirus. became infected as well. This affected her ability to care for the patient. Patient was evaluated by physical therapy and occupational therapy and recommended that patient would be placed in usp facility. Plan for discharge and transfer to nursing facility was made. Patient will be transferred. Patient was hemodynamically stable at time of transfer. was contacted and was okay with the plan for transfer to usp facility. Facility was told of the need for contact precautions moving forward with patient's norovirus. Abdomen/Pelvis CT 10/03/17 16:37 IMPRESSION: 1. No acute abnormality detected. 2. Ventral wall hernia near the level of the umbilicus, containing a loop of small bowel, but without evidence of obstruction. 3. Nonobstructing right nephrolithiasis. 4. Small hiatal hernia. D/ / Aman Posey MD / Aman Posey MD Interpreting Provider: Aman Posey MD Chest X-Ray 10/03/17 16:46 IMPRESSION: 1. No acute cardiopulmonary process. 2. Pulmonary vascular congestion and/or chronic interstitial change. D/ / Sarath Michael MD / Sarath Michael MD Interpreting Provider: Sarath Michael MD Chest CT 10/04/17 14:41 IMPRESSION: There are very small bilateral pleural effusions with adjacent airspace disease, probably atelectasis although pneumonia and edema would remain in the differential. A focal infiltrate is not identified otherwise. There is bronchial wall thickening diffusely, but without mucous plugging. D/ / Aman Posey MD / Aman Posey MD Interpreting Provider: Aman Posey MD - Time Spent with Patient Total time spent providing and/or coordinating discharge services: - Discharge Medications Prescriptions: Amoxicillin/Clavulanate [Augmentin] 875 mg PO BIDWM #4 tablet Home Medications: Aspirin [Lo-Dose Aspirin EC] 81 mg PO DAILY 10/04/16 [History] Atenolol [Tenormin] 12.5 mg PO DAILY 10/04/16 [History] Cholecalciferol (Vitamin D3) [Vitamin D3] 2,000 unit PO DAILY 10/04/16 [History] Citalopram Hydrobromide [Citalopram HBr] 10 mg PO DAILY 10/04/16 [History] Ferrous Sulfate [Iron] 325 mg PO BID 10/04/16 [History] Glimepiride [Amaryl] 2 mg PO DAILY 10/04/16 [History] Hydrocortisone [Cortef] 10 mg PO QPM 10/04/16 [History] Hydrocortisone [Cortef] 15 mg PO QAM 10/04/16 [History] Multivit-Min/FA/Lycopen/Lutein [Adults 50+ Multivitamin Tablet] 1 tab PO DAILY 10/04/16 [History] Omeprazole [PriLOSEC] 20 mg PO DAILY 10/04/16 [History] Warfarin [Coumadin] 5 mg PO QPM 10/04/16 [History] levETIRAcetam [Keppra] 500 mg PO Q12HR 10/04/16 [History] Donepezil [Aricept] 10 mg PO HS 05/03/17 [History] Levothyroxine [Synthroid] 112 mcg PO 0630 05/03/17 [History] Lovastatin [Mevacor] 20 mg PO HS 05/03/17 [History] Amoxicillin/Clavulanate [Augmentin] 875 mg PO BIDWM #4 tablet 10/07/17 [Rx] Allergies/Adverse Reactions: 3 Allergy/AdvReac Type Severity Reaction Status Date / Time Hydromorphone [From Dilaudid] Allergy HEART STOPS Verified 10/04/17 09:57 Date of admission: 10/03/17 22:46 Primary care physician: Chrissy Welsh CNP Consults: 10/03/17 17:00 Consult to Surgery [CONS] Routine Consulting Provider: [facility] Reason for Consult: possible upper GI bleed Call Completed: Yes 10/04/17 14:41 Consult to Speech Therapy [CONS] Routine Comment: Evaluate, develop and implement POC Reason for Consult: Possible aspiration Call Completed: No 10/06/17 08:36 Consult to Occupational Therapy [CONS] Routine Comment: Evaluate, develop and implement POC Reason for Consult: d/c planning Does patient have active BEDREST order?: No Is patient medically & hemodynamically stable?: Yes Patient assessed for mobility or mobilized this visit?: No Consult to Physical Therapy [CONS] Routine Comment: Evaluate, develop and implement POC Reason for Consult: d/c planning Does patient have active BEDREST order?: No Is patient medically & hemodynamically stable?: Yes Patient assessed for mobility or mobilized this visit?: No Consult to Take Away Attendant [CONS] Routine Reason for SW Consult: d/c planning possible rehab Discharging clinician: Naman Anthony - Constitutional Vitals: Temp Pulse Resp BP Pulse Ox 97.8 F 91 18 150/98 100 10/07/17 11:33 10/07/17 11:33 10/07/17 11:33 10/07/17 11:33 10/07/17 11:33 General appearance: Present: mild distress - Head Head exam: Present: atraumatic - ENT ENT exam: Present: mucous membranes moist - Respiratory Respiratory exam: Present: CTAB - Cardiovascular Cardiovascular exam: Present: irregular rhythm. Absent: JVD - Extremities Exam Extremities exam: Present: pedal edema (1+) - Psychiatric Psychiatric exam: Present: normal affect, normal mood - Skin Skin exam: Present: dry - Patient Status Disposition: Transfer Other Condition: Fair Overall status at discharge: patient is progressing back to baseline - Discharge Instructions Instructions: Amoxicillin/Clavulanate Potassium (By mouth), Hypothyroidism (DC) , Diabetes Mellitus Type 2 in Adults (DC), Gastroenteritis (DC), Acute Diarrhea (GEN), Pneumonia (DC) Follow Up With: Chrissy Welsh CORRECTIONAL CASE RECORDS SUPERVISOR [Primary Care Provider] - (Patient is going to [facility] doesnt need a PCP appointment) Forms: ED Satisfaction Letter, Work/School Release Additional Instructions: Follow-up with your primary care provider in the next 2 weeks for a recheck. Take all medications as prescribed. Return to the emergency department if your current symptoms worsen or if you develop any new symptoms. - Diet and Activity Activity: as per physical therapy Diet: diabetic diet - VTE Documentation of Mechanical Device: Intermittent pneumatic compression device <Naman Anthony - Last Filed: 10/07/17 18:07> Orders not resulted at time of discharge: Pending orders 10/08/17 04:00 Prothrombin Time INR [COAG] AM 0400 10/09/17 04:00 Prothrombin Time INR [COAG] AM 0400 10/10/17 04:00 Prothrombin Time INR [COAG] AM 0400 Date of Encounter: 10/07/17 - Discharge Diagnosis (1) Norovirus Status: Acute (2) Paroxysmal atrial fibrillation Priority: Secondary Status: Chronic (3) HTN (hypertension) Priority: Secondary Status: Chronic Qualifiers: Hypertension type: essential hypertension Qualified Code(s): I10 - Essential (primary) hypertension (4) HLD (hyperlipidemia) Priority: Secondary Status: Chronic Qualifiers: Hyperlipidemia type: mixed hyperlipidemia Qualified Code(s): E78.2 - Mixed hyperlipidemia (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 Carter is a 82 year old male Discharge discussed with: patient - Time Spent with Patient Total time spent providing and/or coordinating discharge services: 38min Date of admission: 10/03/17 22:46 Primary care physician: Chrissy eWlsh CNP Consults: 10/03/17 17:00 Consult to Surgery [CONS] Routine Consulting Provider: [facility] Reason for Consult: possible upper GI bleed Call Completed: Yes 10/04/17 14:41 Consult to Speech Therapy [CONS] Routine Comment: Evaluate, develop and implement POC Reason for Consult: Possible aspiration Call Completed: No 10/06/17 08:36 Consult to Occupational Therapy [CONS] Routine Comment: Evaluate, develop and implement POC Reason for Consult: d/c planning Does patient have active BEDREST order?: No Is patient medically & hemodynamically stable?: Yes Patient assessed for mobility or mobilized this visit?: No Consult to Physical Therapy [CONS] Routine Comment: Evaluate, develop and implement POC Reason for Consult: d/c planning Does patient have active BEDREST order?: No Is patient medically & hemodynamically stable?: Yes Patient assessed for mobility or mobilized this visit?: No Consult to Take Away Attendant [CONS] Routine Reason for SW Consult: d/c planning possible rehab - Constitutional Vitals: Temp Pulse Resp BP Pulse Ox 98.4 F 89 18 129/84 98 10/07/17 16:00 10/07/17 16:00 10/07/17 16:00 10/07/17 16:00 10/07/17 16:00 - Attending Attestation I examined this patient and my medical decision-making was reviewed with the Resident Physician on 10/07/17. I agree with the documented findings, disposition and treatment plan as described except to the extent set forth below. Mr Carter has been admitted for acute gastroenteritis and found to have norovirus. He continues to have some diarrhea. He is afebrile at this time. He is to go to SNF for further care and rehab. He is ready for discharge at this time. Exam alert Comfortable Mucus membranes dry Heart irreg but not tachy Lungs diminished Abd soft Plan D/C to SNF today
--- NOTE | 2017-10-07 15:47 | Physician Discharge Referral ---
ExtendedCare Referral Info Transfer To: [facility] Provider in Charge after Transfer: PCP Institutional Level of Care: Skilled - Diagnosis (1) Norovirus Priority: Primary Status: Acute (2) Fever Priority: Primary Status: Resolved (3) Pneumonia Priority: Primary Status: Acute (4) Nausea vomiting and diarrhea Priority: Primary Status: Acute (5) GI bleed Priority: Secondary Status: Resolved (6) Atrial fibrillation with RVR Priority: Secondary Status: Chronic (7) DVT prophylaxis Priority: Secondary Status: Resolved (8) Adrenal insufficiency Priority: Secondary Status: Chronic (9) CVA, old, hemiparesis Priority: Secondary Status: Chronic (10) Hypothyroid Priority: Secondary Status: Chronic Prognosis: Fair Aware of Diagnosis: Patient, Family Aware of Prognosis: Patient, Family - Transfer Medications Prescriptions: Amoxicillin/Clavulanate [Augmentin] 875 mg PO BIDWM #4 tablet Home Medications: Aspirin [Lo-Dose Aspirin EC] 81 mg PO DAILY 10/04/16 [History] Atenolol [Tenormin] 12.5 mg PO DAILY 10/04/16 [History] Cholecalciferol (Vitamin D3) [Vitamin D3] 2,000 unit PO DAILY 10/04/16 [History] Citalopram Hydrobromide [Citalopram HBr] 10 mg PO DAILY 10/04/16 [History] Ferrous Sulfate [Iron] 325 mg PO BID 10/04/16 [History] Glimepiride [Amaryl] 2 mg PO DAILY 10/04/16 [History] Hydrocortisone [Cortef] 10 mg PO QPM 10/04/16 [History] Hydrocortisone [Cortef] 15 mg PO QAM 10/04/16 [History] Multivit-Min/FA/Lycopen/Lutein [Adults 50+ Multivitamin Tablet] 1 tab PO DAILY 10/04/16 [History] Omeprazole [PriLOSEC] 20 mg PO DAILY 10/04/16 [History] Warfarin [Coumadin] 5 mg PO QPM 10/04/16 [History] levETIRAcetam [Keppra] 500 mg PO Q12HR 10/04/16 [History] Donepezil [Aricept] 10 mg PO HS 05/03/17 [History] Levothyroxine [Synthroid] 112 mcg PO 0630 05/03/17 [History] Lovastatin [Mevacor] 20 mg PO HS 05/03/17 [History] Amoxicillin/Clavulanate [Augmentin] 875 mg PO BIDWM #4 tablet 10/07/17 [Rx] Allergies/Adverse Reactions: 3 Allergy/AdvReac Type Severity Reaction Status Date / Time Hydromorphone [From Dilaudid] Allergy HEART STOPS Verified 10/04/17 09:57 - Respiratory Orders Smoking Cessation: Smoking cessation has been advised. For more information, call the [place] Tobacco Quit Line at 1-893-DUDQ-NOW. - Advance Directives Code Status: DNR-Arrest - Mobility Orders Other (Per physical therapy) - Rehabiliation Orders Rehab Potential: Fair Rehab Orders: Evaluation for Physical Therapy - Diet Orders No Concentrated Sweets CERTIFICATION: I certify that the transfer of the above named patient to an Extended Care Facility is necessary for the continuing treatment of the diagnosis listed. The above information is true and accurate reflection of patient's current condition. Confidential - Redisclosure prohibited without a patient's written consent.
[2017-10-07 16:07] VITALS: BP 129/84
[2017-10-07] MEDS ORDERED: *HR* Warfarin 5 MG TABLET PO ONE (18:00)
== END 2017-10-07 18:15 | disposition other institution (70) | DRG 871 ==
LOC: EMEROO 16:33 → 3ANU 16:33 → SUATTDRO 22:46 → 2NNU 23:45
PROVIDERS: ADMIT Internal Medicine; ATTEND Internal Medicine

== ENCOUNTER 2018-02-14 10:30 | Observation (INO) ==
--- NOTE | 2018-02-14 10:49 | Emergency Department Note ---
Disposition Clinical Impression: Generalized weakness, Unable to ambulate Urinary tract infection Qualifiers: Urinary tract infection type: acute cystitis Hematuria presence: with hematuria Qualified Code(s): N30.01 - Acute cystitis with hematuria Disposition: Admitted As Inpatient Condition: Fair Referrals: Chrissy Welsh CNP [Primary Care Provider] - Forms: ED Satisfaction Letter, Work/School Release Time of Disposition: 13:01 Weakness HPI - General Chief complaint: ED General Medical Stated complaint: requesting care home admit Time Seen by Provider: 02/14/18 10:32 Source: patient, family Mode of arrival: EMS Limitations: no limitations Nursing Notes Reviewed: Yes Vital Signs Reviewed: Yes - History of Present Illness HPI Narrative: Alert and oriented nontoxic-appearing 82-year-old male is brought by EMS from home for evaluation of generalized weakness. The patient's spouse states that one week ago, the patient fell, and has progressively declined since. She states that it has gotten to the point that he cannot ambulate. She states that she has to completely assess the patient to stand up and transfer. The patient denies any injury from that fall. The patient's states that she assisted him down, and he "fell on top of the". He denies hitting his head or any other injuries. He denies any chest pain, shortness of breath, fever, chills, abdominal pain, or any other medical complaints. His states that she would like to see if he can get placed into an extended care facility, given his inability to ambulate at home and progressively worsening generalized weakness. Pt Subjective Complaint: generalized weakness/fatigue Duration: gradually worsening Location: generalized Pain Scale: 0 Improves with: none Worsens with: none Associated symptoms: Reports: denies other symptoms - Related Data Home Medications Medication Instructions Recorded Confirmed Aspirin [Lo-Dose Aspirin EC] 81 mg PO DAILY 10/04/16 02/14/18 Atenolol [Tenormin] 12.5 mg PO DAILY 10/04/16 02/14/18 Cholecalciferol (Vitamin D3) 2,000 unit PO DAILY 10/04/16 02/14/18 [Vitamin D3] Citalopram Hydrobromide 10 mg PO DAILY 10/04/16 02/14/18 [Citalopram HBr] Ferrous Sulfate [Iron] 325 mg PO BID 10/04/16 02/14/18 Glimepiride [Amaryl] 2 mg PO DAILY 10/04/16 02/14/18 Hydrocortisone [Cortef] 10 mg PO QPM 10/04/16 02/14/18 Hydrocortisone [Cortef] 15 mg PO QAM 10/04/16 02/14/18 Multivit-Min/FA/Lycopen/Lutein 1 tab PO DAILY 10/04/16 02/14/18 [Adults 50+ Multivitamin Tablet] Omeprazole [PriLOSEC] 20 mg PO BID 10/04/16 02/14/18 Warfarin [Coumadin] 5 mg PO QPM 10/04/16 02/14/18 levETIRAcetam [Keppra] 500 mg PO Q12HR 10/04/16 02/14/18 Donepezil [Aricept] 10 mg PO HS 05/03/17 02/14/18 Levothyroxine [Synthroid] 112 mcg PO 0630 05/03/17 02/14/18 Lovastatin [Mevacor] 20 mg PO HS 05/03/17 02/14/18 Insulin Degludec [Tresiba 29 unit SQ QPM 02/14/18 02/14/18 Flextouch U-100] Allergies Allergy/AdvReac Type Severity Reaction Status Date / Time Hydromorphone [From Dilaudid] Allergy HEART STOPS Verified 10/04/17 09:57 All systems ED: reviewed and negative except as stated. Constitutional: Denies: fever, chills, weakness, weight change Eyes: Denies: eye pain, eye discharge, vision change ENT ED: Denies: ear pain, throat pain, dental pain, hearing loss, epistaxis, congestion, dysphagia Cardiovascular: Denies: chest pain, palpitations, dyspnea on exertion, edema, syncope Respiratory: Denies: cough, dyspnea, wheezes, hemoptysis, stridor Gastrointestinal: Denies: abdominal pain, nausea, vomiting, diarrhea, constipation, hematemesis, melena, hematochezia Genitourinary: Denies: urgency, dysuria, frequency, hematuria Musculoskeletal: Denies: back pain, neck pain, arthralgia, myalgia Integumentary: Denies: rash, abrasion, lesions Neurological: Reports: as per HPI, weakness (Generalized). Denies: headache, numbness, paresthesias, confusion, abnormal gait, vertigo Psychiatric: Denies: anxiety, depression, suicidal thoughts, homicidal thoughts , auditory hallucinations, visual hallucinations Endocrine: Denies: fatigue Hematological/Lymphatic: Denies: easy bleeding, easy bruising Allergic/Immunologic: Denies: facial swelling, urticaria Past Medical History - Past Medical History Attestation: Yes The following information was validated with the patient. Source: patient, nursing notes reviewed Medical history: Reports: atrial fibrillation, CVA, DVT, dementia, diabetes, GERD, GI bleed, seizures, TIA Surgical history: Reports: appendectomy, cholecystectomy, colectomy, knee replacement, orthopedic, other, sinus surgery, vascular surgery, other Psychiatric history: Reports: anxiety, depression, other - Social History Smoking Status: Never smoker Smokeless Tobacco Status: No Alcohol use: Reports: none Drug use: Reports: none Physical Exam - General Limitations: no limitations General appearance: alert, appears intoxicated - Head Head exam: atraumatic, normocephalic, normal inspection - Expanded Head Exam Head exam physicial: Absent: laceration, abrasion, contusion, hematoma - Eye Eye exam: Present: normal appearance, PERRL, EOMI - ENT ENT exam: mucous membranes moist - Neck Neck exam: Present: normal inspection, full ROM, trachea midline - Chest Chest inspection: Present: normal inspection, symmetric chest wall rise - Respiratory Respiratory exam: Present: normal lung sounds bilaterally. Absent: respiratory distress, wheezes, stridor, accessory muscle use, prolonged expiratory phase - Cardiovascular Cardiovascular exam: Present: regular rate, normal rhythm, normal heart sounds - Abdominal Exam Abdominal exam: Present: soft, Non-Tender, normal bowel sounds - Extremities Exam Extremities exam: Present: normal inspection, full ROM. Absent: tenderness, pedal edema - Neurological Exam Neurological exam: Present: alert, oriented X3 - Psychiatric Psychiatric exam: Present: normal affect, normal mood - Skin Skin exam: Present: warm, dry, intact, normal color. Absent: rash Course Course Narrative: I discussed this patient's case with Dr. Kline, ED attending. Dr. Kline has had a [id number] evaluation with the patient and agrees with admission to the hospitalist service. The patient was evaluated by social work here in the department however was found to need a three-day observation. Prior to ECF placement. 1300: I have discussed this patient's case with Dr. Hubbard of the hospitalist services accepted the patient for admission for further care and management. Vital Signs Temperature 98.2 F 02/14/18 10:33 Pulse Rate 75 02/14/18 10:33 Respiratory Rate 18 02/14/18 10:33 Blood Pressure 150/67 02/14/18 10:33 O2 Sat by Pulse Oximetry 97 02/14/18 10:33 Temperature 98.2 F 02/14/18 10:33 Pulse Rate 75 02/14/18 10:33 Respiratory Rate 18 02/14/18 10:33 Blood Pressure 150/67 02/14/18 10:33 O2 Sat by Pulse Oximetry 97 02/14/18 10:33 Weakness - Medical Records Medical records reviewed: Yes I reviewed the patient's medical records. - Lab Data Lab results reviewed: Yes I reviewed the patient's lab results. Lab results narrative: Lab Results 02/14/18 02/14/18 02/14/18 Range/Units 11:30 11:30 11:30 WBC 7.4 (4.3-11.1) K/mcL RBC 4.73 (4.19-5.50) M/mcL Hgb 14.1 (12.9-16.9) g/dL Hct 41.3 (37.5-50.1) % MCV 87.3 (83.0-100.0) fL MCH 29.8 (28.0-33.3) pg MCHC 34.1 (31.6-35.5) g/dL RDW 13.0 (11.5-14.5) % Plt Count 263 (140-400) K/mcL MPV 9.6 (9.4-12.4) fL Immature Gran % 0.4 (0-4) % Seg Neutrophils % 60.9 % Lymphocytes % 26.4 % Monocytes % 7.3 % Eosinophils % 4.6 % Basophils % 0.4 % Neutrophils # 4.5 (1.6-8.9) K/mcL Lymphocytes # 1.9 (0.6-4.6) K/mcL Monocytes # 0.5 (0.0-1.3) K/mcL Eosinophils # 0.3 (0.0-0.6) K/mcL Basophils # 0.0 (0.0-0.2) K/mcL PT 25.9 H (9.4-12.1) Seconds INR 2.3 APTT 39.8 H (26.0-36.0) Seconds Sodium 140 (136-145) mEq/L Potassium 4.1 (3.5-5.1) mEq/L Chloride 105 (98-107) mEq/L Carbon Dioxide 28 (23-29) mEq/L BUN 16 (8-23) mg/dL Creatinine 1.25 (0.70-1.30) mg/dL Est GFR ( Amer) > 60 (> 60) Est GFR (Non-Af Amer) 55 L (> 60) BUN/Creatinine Ratio 13 (6-26) Glucose 105 (70-105) mg/dL Calculated Osmolality 292 (280-300) Calcium 9.3 (8.6-10.3) mg/dL Troponin I < 0.03 (< 0.04) ng/mL Urine Color (Yellow) Urine Clarity (Clear) Urine pH (5.0-8.0) pH Units Ur Specific [place] (1.010-1.025) Urine Protein (Neg-Trace) mg/dL Urine Glucose (UA) (Normal) mg/dL Urine Ketones (Negative) mg/dL Urine Blood (Negative) Urine Nitrite (Negative) Urine Bilirubin (Negative) Urine Urobilinogen (Normal) mg/dL Ur Leukocyte Esterase (Negative) Urine Microscopic RBC (0-3) per hpf Urine Microscopic WBC (0-3) per hpf Ur Squamous Epith Cells (None-Few) per lpf Urine Bacteria (None-Few) per hpf Hyaline Casts (None-Few) per lpf Ur Culture Indicated? (NO) 02/14/18 Range/Units 11:49 WBC (4.3-11.1) K/mcL RBC (4.19-5.50) M/mcL Hgb (12.9-16.9) g/dL Hct (37.5-50.1) % MCV (83.0-100.0) fL MCH (28.0-33.3) pg MCHC (31.6-35.5) g/dL RDW (11.5-14.5) % Plt Count (140-400) K/mcL MPV (9.4-12.4) fL Immature Gran % (0-4) % Seg Neutrophils % % Lymphocytes % % Monocytes % % Eosinophils % % Basophils % % Neutrophils # (1.6-8.9) K/mcL Lymphocytes # (0.6-4.6) K/mcL Monocytes # (0.0-1.3) K/mcL Eosinophils # (0.0-0.6) K/mcL Basophils # (0.0-0.2) K/mcL PT (9.4-12.1) Seconds INR APTT (26.0-36.0) Seconds Sodium (136-145) mEq/L Potassium (3.5-5.1) mEq/L Chloride (98-107) mEq/L Carbon Dioxide (23-29) mEq/L BUN (8-23) mg/dL Creatinine (0.70-1.30) mg/dL Est GFR ( Amer) (> 60) Est GFR (Non-Af Amer) (> 60) BUN/Creatinine Ratio (6-26) Glucose (70-105) mg/dL Calculated Osmolality (280-300) Calcium (8.6-10.3) mg/dL Troponin I (< 0.04) ng/mL Urine Color Yellow (Yellow) Urine Clarity Cloudy A (Clear) Urine pH 6.0 (5.0-8.0) pH Units Ur Specific [place] 1.018 (1.010-1.025) Urine Protein Negative (Neg-Trace) mg/dL Urine Glucose (UA) Normal (Normal) mg/dL Urine Ketones Negative (Negative) mg/dL Urine Blood Trace H (Negative) Urine Nitrite Negative (Negative) Urine Bilirubin Negative (Negative) Urine Urobilinogen Normal (Normal) mg/dL Ur Leukocyte Esterase Large H (Negative) Urine Microscopic RBC 3-5 H (0-3) per hpf Urine Microscopic WBC TNTC H (0-3) per hpf Ur Squamous Epith Cells None Seen (None-Few) per lpf Urine Bacteria None Seen (None-Few) per hpf Hyaline Casts None Seen (None-Few) per lpf Ur Culture Indicated? YES A (NO) Result diagrams: 02/14/18 11:30 02/14/18 11:30 Lab Results 02/14/18 02/14/18 02/14/18 Range/Units 11:30 11:30 11:30 WBC 7.4 (4.3-11.1) K/mcL RBC 4.73 (4.19-5.50) M/mcL Hgb 14.1 (12.9-16.9) g/dL Hct 41.3 (37.5-50.1) % MCV 87.3 (83.0-100.0) fL MCH 29.8 (28.0-33.3) pg MCHC 34.1 (31.6-35.5) g/dL RDW 13.0 (11.5-14.5) % Plt Count 263 (140-400) K/mcL MPV 9.6 (9.4-12.4) fL Immature Gran % 0.4 (0-4) % Seg Neutrophils % 60.9 % Lymphocytes % 26.4 % Monocytes % 7.3 % Eosinophils % 4.6 % Basophils % 0.4 % Neutrophils # 4.5 (1.6-8.9) K/mcL Lymphocytes # 1.9 (0.6-4.6) K/mcL Monocytes # 0.5 (0.0-1.3) K/mcL Eosinophils # 0.3 (0.0-0.6) K/mcL Basophils # 0.0 (0.0-0.2) K/mcL PT 25.9 H (9.4-12.1) Seconds INR 2.3 APTT 39.8 H (26.0-36.0) Seconds Sodium 140 (136-145) mEq/L Potassium 4.1 (3.5-5.1) mEq/L Chloride 105 (98-107) mEq/L Carbon Dioxide 28 (23-29) mEq/L BUN 16 (8-23) mg/dL Creatinine 1.25 (0.70-1.30) mg/dL Est GFR ( Amer) > 60 (> 60) Est GFR (Non-Af Amer) 55 L (> 60) BUN/Creatinine Ratio 13 (6-26) Glucose 105 (70-105) mg/dL Calculated Osmolality 292 (280-300) Calcium 9.3 (8.6-10.3) mg/dL Troponin I < 0.03 (< 0.04) ng/mL Urine Color (Yellow) Urine Clarity (Clear) Urine pH (5.0-8.0) pH Units Ur Specific [place] (1.010-1.025) Urine Protein (Neg-Trace) mg/dL Urine Glucose (UA) (Normal) mg/dL Urine Ketones (Negative) mg/dL Urine Blood (Negative) Urine Nitrite (Negative) Urine Bilirubin (Negative) Urine Urobilinogen (Normal) mg/dL Ur Leukocyte Esterase (Negative) Urine Microscopic RBC (0-3) per hpf Urine Microscopic WBC (0-3) per hpf Ur Squamous Epith Cells (None-Few) per lpf Urine Bacteria (None-Few) per hpf Hyaline Casts (None-Few) per lpf Ur Culture Indicated? (NO) 02/14/18 Range/Units 11:49 WBC (4.3-11.1) K/mcL RBC (4.19-5.50) M/mcL Hgb (12.9-16.9) g/dL Hct (37.5-50.1) % MCV (83.0-100.0) fL MCH (28.0-33.3) pg MCHC (31.6-35.5) g/dL RDW (11.5-14.5) % Plt Count (140-400) K/mcL MPV (9.4-12.4) fL Immature Gran % (0-4) % Seg Neutrophils % % Lymphocytes % % Monocytes % % Eosinophils % % Basophils % % Neutrophils # (1.6-8.9) K/mcL Lymphocytes # (0.6-4.6) K/mcL Monocytes # (0.0-1.3) K/mcL Eosinophils # (0.0-0.6) K/mcL Basophils # (0.0-0.2) K/mcL PT (9.4-12.1) Seconds INR APTT (26.0-36.0) Seconds Sodium (136-145) mEq/L Potassium (3.5-5.1) mEq/L Chloride (98-107) mEq/L Carbon Dioxide (23-29) mEq/L BUN (8-23) mg/dL Creatinine (0.70-1.30) mg/dL Est GFR ( Amer) (> 60) Est GFR (Non-Af Amer) (> 60) BUN/Creatinine Ratio (6-26) Glucose (70-105) mg/dL Calculated Osmolality (280-300) Calcium (8.6-10.3) mg/dL Troponin I (< 0.04) ng/mL Urine Color Yellow (Yellow) Urine Clarity Cloudy A (Clear) Urine pH 6.0 (5.0-8.0) pH Units Ur Specific [place] 1.018 (1.010-1.025) Urine Protein Negative (Neg-Trace) mg/dL Urine Glucose (UA) Normal (Normal) mg/dL Urine Ketones Negative (Negative) mg/dL Urine Blood Trace H (Negative) Urine Nitrite Negative (Negative) Urine Bilirubin Negative (Negative) Urine Urobilinogen Normal (Normal) mg/dL Ur Leukocyte Esterase Large H (Negative) Urine Microscopic RBC 3-5 H (0-3) per hpf Urine Microscopic WBC TNTC H (0-3) per hpf Ur Squamous Epith Cells None Seen (None-Few) per lpf Urine Bacteria None Seen (None-Few) per hpf Hyaline Casts None Seen (None-Few) per lpf Ur Culture Indicated? YES A (NO) - Radiology Data Radiology results reviewed: Yes I reviewed the patient's radiology results. Chest X-Ray 02/14/18 10:43 IMPRESSION: No evidence for acute cardiopulmonary process. D/ / Rishi Middleton MD / Rishi Middleton MD Interpreting Provider: Rishi Middleton MD Head CT 02/14/18 10:44 IMPRESSION: 1. No acute intracranial abnormality. 2. Diffuse cerebral atrophy with chronic small vessel ischemic disease. 3. 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 4. 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 D/ / Celso Trinidad MD / Celso Trinidad MD Interpreting Provider: Celso Trinidad MD - EKG Data EKG attestation: Yes I reviewed and interpreted this EKG. EKG results narrative: EKG reviewed by Dr. Kline as well. EKG shows atrial fibrillation at a rate of 74 bpm. QRS duration 86, QT/QTc interval 393/4-1. No ectopy noted. No ST elevation.
[2018-02-14 11:50] LABS: Basophils % 0.4 %; Eosinophils # 0.3 K/mcL (0.0-0.6); Eosinophils % 4.6 %; Hematocrit 41.3 % (37.5-50.1); Hemoglobin 14.1 g/dL (12.9-16.9); Immature Granulocytes % 0.4 % (0-4); Lymphocytes # 1.9 K/mcL (0.6-4.6); Lymphocytes % 26.4 %; Mean Corpuscular HGB Conc 34.1 g/dL (31.6-35.5); Mean Corpuscular Hemoglobin 29.8 pg (28.0-33.3); Mean Corpuscular Volume 87.3 fL (83.0-100.0); Mean Platelet Volume 9.6 fL (9.4-12.4); Monocytes # 0.5 K/mcL (0.0-1.3); Monocytes % 7.3 %; Neutrophils # 4.5 K/mcL (1.6-8.9); Platelet Count 263 K/mcL (140-400); Red Blood Count 4.73 M/mcL (4.19-5.50); Segmented Neutrophils % 60.9 %
[2018-02-14 11:58] LABS: INR 2.3; Prothrombin Time 25.9 Seconds (9.4-12.1)
[2018-02-14 12:01] LABS: Activated Partial Thrombo Time 39.8 Seconds (26.0-36.0)
--- NOTE | 2018-02-14 12:01 | Emergency Department Note ---
Disposition Clinical Impression: Generalized weakness, Unable to ambulate Urinary tract infection Qualifiers: Urinary tract infection type: acute cystitis Hematuria presence: with hematuria Qualified Code(s): N30.01 - Acute cystitis with hematuria Disposition: Admitted As Inpatient General Adult HPI - General Chief complaint: ED General Medical Stated complaint: requesting jail admit Time Seen by Provider: 02/14/18 10:32 Source: patient, family Mode of arrival: EMS Limitations: no limitations - History of Present Illness Pain Scale: 0 - Related Data Home Medications Medication Instructions Recorded Confirmed Aspirin [Lo-Dose Aspirin EC] 81 mg PO DAILY 10/04/16 02/14/18 Atenolol [Tenormin] 12.5 mg PO DAILY 10/04/16 02/14/18 Cholecalciferol (Vitamin D3) 2,000 unit PO DAILY 10/04/16 02/14/18 [Vitamin D3] Citalopram Hydrobromide 10 mg PO DAILY 10/04/16 02/14/18 [Citalopram HBr] Ferrous Sulfate [Iron] 325 mg PO BID 10/04/16 02/14/18 Glimepiride [Amaryl] 2 mg PO DAILY 10/04/16 02/14/18 Hydrocortisone [Cortef] 10 mg PO QPM 10/04/16 02/14/18 Hydrocortisone [Cortef] 15 mg PO QAM 10/04/16 02/14/18 Multivit-Min/FA/Lycopen/Lutein 1 tab PO DAILY 10/04/16 02/14/18 [Adults 50+ Multivitamin Tablet] Omeprazole [PriLOSEC] 20 mg PO BID 10/04/16 02/14/18 Warfarin [Coumadin] 5 mg PO QPM 10/04/16 02/14/18 levETIRAcetam [Keppra] 500 mg PO Q12HR 10/04/16 02/14/18 Donepezil [Aricept] 10 mg PO HS 05/03/17 02/14/18 Levothyroxine [Synthroid] 112 mcg PO 0630 05/03/17 02/14/18 Lovastatin [Mevacor] 20 mg PO HS 05/03/17 02/14/18 Insulin Degludec [Tresiba 29 unit SQ QPM 02/14/18 02/14/18 Flextouch U-100] Allergies Allergy/AdvReac Type Severity Reaction Status Date / Time Hydromorphone [From Dilaudid] Allergy HEART STOPS Verified 10/04/17 09:57 Constitutional: Denies: fever, chills, weakness, weight change Eyes: Denies: eye pain, eye discharge, vision change ENT ED: Denies: ear pain, throat pain, dental pain, hearing loss, epistaxis, congestion, dysphagia Cardiovascular: Denies: chest pain, palpitations, dyspnea on exertion, edema, syncope Respiratory: Denies: cough, dyspnea, wheezes, hemoptysis, stridor Gastrointestinal: Denies: abdominal pain, nausea, vomiting, diarrhea, constipation, hematemesis, melena, hematochezia Genitourinary: Denies: urgency, dysuria, frequency, hematuria Musculoskeletal: Denies: back pain, neck pain, arthralgia, myalgia Integumentary: Denies: rash, abrasion, lesions Neurological: Reports: as per HPI, weakness (Generalized). Denies: headache, numbness, paresthesias, confusion, abnormal gait, vertigo Psychiatric: Denies: anxiety, depression, suicidal thoughts, homicidal thoughts , auditory hallucinations, visual hallucinations Endocrine: Denies: fatigue Hematological/Lymphatic: Denies: easy bleeding, easy bruising Allergic/Immunologic: Denies: facial swelling, urticaria Past Medical History - Past Medical History Medical history: Reports: atrial fibrillation, CVA, DVT, dementia, diabetes, GERD, GI bleed, seizures, TIA Surgical history: Reports: appendectomy, cholecystectomy, colectomy, knee replacement, orthopedic, other, sinus surgery, vascular surgery, other Psychiatric history: Reports: anxiety, depression, other - Social History Smoking Status: Never smoker Smokeless Tobacco Status: No Alcohol use: Reports: none Drug use: Reports: none Physical Exam - General Limitations: no limitations General appearance: alert, appears intoxicated Course Vital Signs Temperature 98.2 F 02/14/18 10:33 Pulse Rate 75 02/14/18 10:33 Respiratory Rate 18 02/14/18 10:33 Blood Pressure 150/67 02/14/18 10:33 O2 Sat by Pulse Oximetry 97 02/14/18 10:33 Temperature 98.2 F 02/14/18 10:33 Pulse Rate 75 02/14/18 10:33 Respiratory Rate 18 02/14/18 13:25 Blood Pressure 129/75 02/14/18 13:25 O2 Sat by Pulse Oximetry 97 02/14/18 10:33 Oxygen Delivery Oxygen Delivery Room Air Medical Decision Making - Lab Data Result diagrams: 02/14/18 11:30 02/14/18 11:30 Lab Results 02/14/18 02/14/18 02/14/18 Range/Units 11:30 11:30 11:30 WBC 7.4 (4.3-11.1) K/mcL RBC 4.73 (4.19-5.50) M/mcL Hgb 14.1 (12.9-16.9) g/dL Hct 41.3 (37.5-50.1) % MCV 87.3 (83.0-100.0) fL MCH 29.8 (28.0-33.3) pg MCHC 34.1 (31.6-35.5) g/dL RDW 13.0 (11.5-14.5) % Plt Count 263 (140-400) K/mcL MPV 9.6 (9.4-12.4) fL Immature Gran % 0.4 (0-4) % Seg Neutrophils % 60.9 % Lymphocytes % 26.4 % Monocytes % 7.3 % Eosinophils % 4.6 % Basophils % 0.4 % Neutrophils # 4.5 (1.6-8.9) K/mcL Lymphocytes # 1.9 (0.6-4.6) K/mcL Monocytes # 0.5 (0.0-1.3) K/mcL Eosinophils # 0.3 (0.0-0.6) K/mcL Basophils # 0.0 (0.0-0.2) K/mcL PT 25.9 H (9.4-12.1) Seconds INR 2.3 APTT 39.8 H (26.0-36.0) Seconds Sodium 140 (136-145) mEq/L Potassium 4.1 (3.5-5.1) mEq/L Chloride 105 (98-107) mEq/L Carbon Dioxide 28 (23-29) mEq/L BUN 16 (8-23) mg/dL Creatinine 1.25 (0.70-1.30) mg/dL Est GFR ( Amer) > 60 (> 60) Est GFR (Non-Af Amer) 55 L (> 60) BUN/Creatinine Ratio 13 (6-26) Glucose 105 (70-105) mg/dL Calculated Osmolality 292 (280-300) Calcium 9.3 (8.6-10.3) mg/dL Troponin I < 0.03 (< 0.04) ng/mL Urine Color (Yellow) Urine Clarity (Clear) Urine pH (5.0-8.0) pH Units Ur Specific [place] (1.010-1.025) Urine Protein (Neg-Trace) mg/dL Urine Glucose (UA) (Normal) mg/dL Urine Ketones (Negative) mg/dL Urine Blood (Negative) Urine Nitrite (Negative) Urine Bilirubin (Negative) Urine Urobilinogen (Normal) mg/dL Ur Leukocyte Esterase (Negative) Urine Microscopic RBC (0-3) per hpf Urine Microscopic WBC (0-3) per hpf Ur Squamous Epith Cells (None-Few) per lpf Urine Bacteria (None-Few) per hpf Hyaline Casts (None-Few) per lpf Ur Culture Indicated? (NO) 02/14/18 Range/Units 11:49 WBC (4.3-11.1) K/mcL RBC (4.19-5.50) M/mcL Hgb (12.9-16.9) g/dL Hct (37.5-50.1) % MCV (83.0-100.0) fL MCH (28.0-33.3) pg MCHC (31.6-35.5) g/dL RDW (11.5-14.5) % Plt Count (140-400) K/mcL MPV (9.4-12.4) fL Immature Gran % (0-4) % Seg Neutrophils % % Lymphocytes % % Monocytes % % Eosinophils % % Basophils % % Neutrophils # (1.6-8.9) K/mcL Lymphocytes # (0.6-4.6) K/mcL Monocytes # (0.0-1.3) K/mcL Eosinophils # (0.0-0.6) K/mcL Basophils # (0.0-0.2) K/mcL PT (9.4-12.1) Seconds INR APTT (26.0-36.0) Seconds Sodium (136-145) mEq/L Potassium (3.5-5.1) mEq/L Chloride (98-107) mEq/L Carbon Dioxide (23-29) mEq/L BUN (8-23) mg/dL Creatinine (0.70-1.30) mg/dL Est GFR ( Amer) (> 60) Est GFR (Non-Af Amer) (> 60) BUN/Creatinine Ratio (6-26) Glucose (70-105) mg/dL Calculated Osmolality (280-300) Calcium (8.6-10.3) mg/dL Troponin I (< 0.04) ng/mL Urine Color Yellow (Yellow) Urine Clarity Cloudy A (Clear) Urine pH 6.0 (5.0-8.0) pH Units Ur Specific [place] 1.018 (1.010-1.025) Urine Protein Negative (Neg-Trace) mg/dL Urine Glucose (UA) Normal (Normal) mg/dL Urine Ketones Negative (Negative) mg/dL Urine Blood Trace H (Negative) Urine Nitrite Negative (Negative) Urine Bilirubin Negative (Negative) Urine Urobilinogen Normal (Normal) mg/dL Ur Leukocyte Esterase Large H (Negative) Urine Microscopic RBC 3-5 H (0-3) per hpf Urine Microscopic WBC TNTC H (0-3) per hpf Ur Squamous Epith Cells None Seen (None-Few) per lpf Urine Bacteria None Seen (None-Few) per hpf Hyaline Casts None Seen (None-Few) per lpf Ur Culture Indicated? YES A (NO) Attestation Statement - Attestation Attestation: I examined this patient and my medical decision-making was reviewed with the Resident Physician. I agree with the documented findings, disposition and treatment plan as described except to the extent set forth below. Patient presents to the ED with a chief complaint of generalized weakness. 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 He is now having weakness in his left leg. His states he seems to use it okay until he stands. It then drags behind him. She is unable to get him up and move him. She is incapable of taking care of him at home by herself anymore. On examination he is laying in bed in no acute distress. He is able toe raise the leg off the bed and hold it for 5 seconds. Sensations intact. Good plantar and dorsiflexion. No swelling. Plan. Generalized weakness workup. I do not appreciate any focal neurologic deficits in the leg. He is not having any back pain. We will discuss with social work. Patient is unsafe for discharge home. Patient with UTI. Rocephin given. Admitted to medicine.
[2018-02-14 12:02] LABS: Bilirubin,Urine Negative (Negative); Blood,Urine Trace (Negative); Clarity,Urine Cloudy (Clear); Color,Urine Yellow (Yellow); Glucose,Urine (UA) Normal (Normal); Ketones,Urine Negative (Negative); Leukocyte Esterase,Urine Large (Negative); Nitrite,Urine Negative (Negative); Protein,Urine Negative (Neg-Trace); Specific Gravity,Urine 1.018 (1.010-1.025); Urobilinogen,Urine Normal (Normal)
[2018-02-14 12:06] LABS: BUN/Creatinine Ratio 13 (6-26); Blood Urea Nitrogen 16 mg/dL (8-23); Calcium 9.3 mg/dL (8.6-10.3); Carbon Dioxide 28 mEq/L (23-29); Chloride 105 mEq/L (98-107); Glucose 105 mg/dL (70-105); Osmolality,Calculated 292 (280-300); Potassium 4.1 mEq/L (3.5-5.1); Sodium 140 mEq/L (136-145); eGFR For Non-African Americans 55 (> 60)
[2018-02-14 12:06] LABS: Bacteria,Urine None Seen per hpf (None-Few); Hyaline Casts,Urine None Seen per lpf (None-Few); Squamous Epithelial Cell,Urine None Seen per lpf (None-Few); WBC,Urine TNTC per hpf (0-3)
[2018-02-14 12:36] LABS: Troponin I < 0.03 ng/mL (< 0.04)
[2018-02-14] MEDS ORDERED: cefTRIAXone 1,000 MG in 0.9 % Sodium Chloride Mini Bag 100 ML IVPB ONE (12:59)
--- NOTE | 2018-02-14 17:09 | Electrocardiograph Report ---
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
--- NOTE | 2018-02-14 17:18 | Internal Med History&Physical ---
Date of Encounter: 02/14/18 Time of Encounter: 17:07 Internal Medicine - H&P: HPI Chief complaint: weakness Admitted From: Home Plans for Post Hospital Care: Transfer Inp Rehab Fac History of present illness: Mr. Carter is a 82 year old male with history of CVA, HTN, HLD, PAF, seizure disordr as sequela of CVA, CKD stage III, who presents from home with weakness. Pt states he lives with his Reports that he has had increasing difficulty ambulating due to weakness. He denies urinary frequency and urgency. He denies fever or chills. In ED patient urine analysis was abnormal and consistent with infection. In ED CBC reviewed. PT 25.9, INR 2.3, Na 140, K 4.1, BUN 16 and Cr 1.25. Troponin <0.03. Urine large leuks, RBC 3-5, WBC TNTC Chest X-Ray 02/14/18 10:43 IMPRESSION: No evidence for acute cardiopulmonary process. D/ / Rishi Middleton MD / Rishi Middleton MD Interpreting Provider: Rishi Middleton MD Head CT 02/14/18 10:44 IMPRESSION: 1. No acute intracranial abnormality. 2. Diffuse cerebral atrophy with chronic small vessel ischemic disease. 3. 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 4. 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 D/ / Celso Trinidad MD / Celso Trinidad MD Interpreting Provider: Celso Trinidad MD Past Med Surg Social Fam HX - Past Medical History Medical history: atrial fibrillation, CVA, DVT, dementia, diabetes, GERD, GI bleed, seizures, TIA Additional medical history: seizures- Last one 09/2014 Psychiatric history: anxiety, depression, other - Past Surgical History Surgical History: appendectomy, cholecystectomy, colectomy, knee replacement, orthopedic, other, sinus surgery, vascular surgery, other - Social History Smoking Status: Never smoker Smokeless Tobacco Status: No Alcohol use: none Drug use: none - Family History Brother History Unknown: Yes Twin of Family Member: Yes, Identical Living Status: Hx Family Cardiac Disorders: Yes (father, process unknown) Hx Family Respiratory Disorders: No Hx Family Cancer: Yes (4 siblings) Hx Family GI Disorders: No Hx Family Genitourinary Disorders: No Hx Family Endocrine Disorder: No Hx Family Musculoskeletal Disorders: No Hx Family Neuromuscular Disorders: No Hx Family Neurologic Disorders: No Hx Family HEENT Disorders: No Hx Family Autoimmune Disorders: No Hx Family Reproductive Disorders: No Hx Family Psychosocial Disorders: No Hx Family Medical Disorders: No Internal Medicine - H&P: Meds Aspirin [Lo-Dose Aspirin EC] 81 mg PO DAILY 10/04/16 [History] Atenolol [Tenormin] 12.5 mg PO DAILY 10/04/16 [History] Cholecalciferol (Vitamin D3) [Vitamin D3] 2,000 unit PO DAILY 10/04/16 [History] Citalopram Hydrobromide [Citalopram HBr] 10 mg PO DAILY 10/04/16 [History] Ferrous Sulfate [Iron] 325 mg PO BID 10/04/16 [History] Glimepiride [Amaryl] 2 mg PO DAILY 10/04/16 [History] Hydrocortisone [Cortef] 10 mg PO QPM 10/04/16 [History] Hydrocortisone [Cortef] 15 mg PO QAM 10/04/16 [History] Multivit-Min/FA/Lycopen/Lutein [Adults 50+ Multivitamin Tablet] 1 tab PO DAILY 10/04/16 [History] Omeprazole [PriLOSEC] 20 mg PO BID 10/04/16 [History] Warfarin [Coumadin] 5 mg PO QPM 10/04/16 [History] levETIRAcetam [Keppra] 500 mg PO Q12HR 10/04/16 [History] Donepezil [Aricept] 10 mg PO HS 05/03/17 [History] Levothyroxine [Synthroid] 112 mcg PO 0630 05/03/17 [History] Lovastatin [Mevacor] 20 mg PO HS 05/03/17 [History] Bacitracin/PolymyxinB OINT [Polysporin] 1 appl TP BID 02/14/18 [History] Insulin Degludec [Tresiba Flextouch U-100] 29 unit SQ QPM 02/14/18 [History] 3 Allergy/AdvReac Type Severity Reaction Status Date / Time Hydromorphone [From Dilaudid] Allergy HEART STOPS Verified 10/04/17 09:57 All Systems PM: A 10-system review of systems was performed and is negative for pertinent findings except as documented above in the HPI. - Constitutional Vitals: Temp Pulse Resp BP Pulse Ox 97.9 F 90 18 123/77 98 02/14/18 14:05 02/14/18 14:05 02/14/18 13:25 02/14/18 14:05 02/14/18 14:05 General appearance: Present: A&O X 3 - Head Head exam: Present: atraumatic, normocephalic - Eye Eye exam: Present: PERRL, conjuntiva pink, sclera anicteric Pupils: Present: PERRL - Neck Neck exam general surgery: Present: supple, trachea midline. Absent: lymphadenopathy - Respiratory Respiratory exam: Present: CTAB. Absent: accessory muscle use, rales, rhonchi, wheezes - Cardiovascular Cardiovascular exam: Present: RRR, +S1, +S2. Absent: diastolic murmur, gallop, rubs, systolic murmur - GI/Abdominal GI/Abdominal exam: Present: normal bowel sounds, soft, no peritoneal signs. Absent: distended, tenderness - Extremities Exam Extremities exam: Present: warm, radial pulses palpable and symmetrical. Absent : calf tenderness, cyanotic, pedal edema - Neurological Exam Neurological exam: Present: CN II-XII intact, oriented X3, no focal deficits. Absent: pronater drift, facial droop, speech deficit - Skin Skin exam: Present: dry, intact Internal Med - H&P Results - Labs CBC & Chem 7: 02/14/18 11:30 02/14/18 11:30 - Assessment and plan (1) Acute cystitis Current Visit: Yes Status: Acute Assessment and plan: Will place on Rocephin. Will place on fluids. Will monitor renal function. Qualifiers: Qualified Code(s): N30.00 - Acute cystitis without hematuria (2) HTN (hypertension) Current Visit: No Status: Chronic Assessment and plan: Will resume home meds. On Atenolol. Qualifiers: Hypertension type: essential hypertension Qualified Code(s): I10 - Essential (primary) hypertension (3) HLD (hyperlipidemia) Current Visit: No Status: Chronic Assessment and plan: On Mevacor Qualifiers: Hyperlipidemia type: mixed hyperlipidemia Qualified Code(s): E78.2 - Mixed hyperlipidemia (4) CKD (chronic kidney disease) stage 3, GFR 30-59 ml/min Current Visit: No Status: Chronic Assessment and plan: Will monitor renal function daily. (5) Generalized weakness Current Visit: Yes Status: Acute Assessment and plan: Likley due to acute illness. will consult PT/OT to see. - Time Spent With Patient Total time spent is greater than 50% in coordination of care (as documented) at patient's floor/unit and/or counseling patient: 25 - 35 minutes
[2018-02-14] MEDS ORDERED: Naloxone 0.4 MG/ML INJ IVP PRN (17:46)
[2018-02-14] MEDS: Hydrocortisone 10 MG TABLET PO SCH (21:04)
[2018-02-14] MEDS: levETIRAcetam 250 MG TABLET PO SCH (21:05)
[2018-02-14] MEDS: Insulin DETEMIR 100 UNIT/ML X5UNITS SQ SCH (21:05)
[2018-02-14] MEDS: *HR* Warfarin 5 MG TABLET PO SCH (21:05)
[2018-02-15 04:42] LABS: Hematocrit 38.3 % (37.5-50.1); Hemoglobin 13.6 g/dL (12.9-16.9); Mean Corpuscular HGB Conc 35.5 g/dL (31.6-35.5); Mean Corpuscular Hemoglobin 30.8 pg (28.0-33.3); Mean Corpuscular Volume 86.7 fL (83.0-100.0); Mean Platelet Volume 9.8 fL (9.4-12.4); Platelet Count 260 K/mcL (140-400); Red Blood Count 4.42 M/mcL (4.19-5.50); Red Cell Distribution Width 12.4 % (11.5-14.5)
[2018-02-15 04:47] LABS: INR 2.5; Prothrombin Time 27.8 Seconds (9.4-12.1)
[2018-02-15 05:02] LABS: BUN/Creatinine Ratio 14 (6-26); Blood Urea Nitrogen 15 mg/dL (8-23); Carbon Dioxide 28 mEq/L (23-29); Chloride 103 mEq/L (98-107); Glucose 165 mg/dL (70-105); Osmolality,Calculated 291 (280-300); Potassium 4.1 mEq/L (3.5-5.1); Sodium 138 mEq/L (136-145); eGFR For Non-African Americans > 60 (> 60)
[2018-02-15] MEDS ORDERED: *HR* Enoxaparin 40 MG/0.4 ML SYRINGE SQ SCH (06:00)
[2018-02-15] MEDS: levETIRAcetam 250 MG TABLET PO SCH ×2 (06:32→17:38)
[2018-02-15] MEDS: Hydrocortisone 10 MG TABLET PO SCH ×2 (08:31→17:38)
[2018-02-15] MEDS: Aspirin Enteric Coated 81 MG Tablet PO SCH (08:31)
[2018-02-15] MEDS ORDERED: *HR* Glimepiride 2 MG TABLET PO SCH (09:00)
[2018-02-15] MEDS: cefTRIAXone 1,000 MG in Water for inj. (sterile) 20 ML 10 ML IVP SCH (12:16)
[2018-02-15] MEDS: *HR* Warfarin 5 MG TABLET PO SCH (17:38)
[2018-02-15] MEDS: Insulin DETEMIR 100 UNIT/ML X5UNITS SQ SCH (17:38)
--- NOTE | 2018-02-15 19:58 | Internal Med Progress Note ---
Hospitalist Progress Note - Encounter Date of Encounter: 02/15/18 Time of Encounter: 12:00 - Subjective Interval History: Patient was seen and examined at bedside, awaiting PT OT evaluation no pain or discomfort at this time. - Exam Vitals: Temp Pulse Resp BP Pulse Ox 981 F H 85 17 113/76 93 02/15/18 16:27 02/15/18 16:27 02/15/18 16:27 02/15/18 16:27 02/15/18 16:27 Exam: IGeneral appearance: Present: A&O X 3, follows simple commands - Head Head exam: Present: atraumatic, normocephalic - Eye Eye exam: Present: PERRL, conjuntiva pink, sclera anicteric Pupils: Present: PERRL - Neck Neck exam general surgery: Present: supple, trachea midline. Absent: lymphadenopathy - Respiratory Respiratory exam: Present: CTAB. Absent: accessory muscle use, rales, rhonchi, wheezes - Cardiovascular Cardiovascular exam: Present: RRR, +S1, +S2. Absent: diastolic murmur, gallop, rubs, systolic murmur - GI/Abdominal GI/Abdominal exam: Present: normal bowel sounds, soft, no peritoneal signs. Absent: distended, tenderness - Extremities Exam Extremities exam: Present: warm, radial pulses palpable and symmetrical. Absent : calf tenderness, cyanotic, pedal edema - Neurological Exam Neurological exam: Present: CN II-XII intact, oriented X3, no focal deficits. Absent: pronater drift, facial droop, speech deficit - Skin-dry and intact - Assessment and Plan (1) Generalized weakness Current Visit: Yes Status: Acute Assessment and Plan: Patient presented with difficulty ambulating increased weakness head CT with no acute intracranial abnormalities Urinalysis indicative UTI initiated on Rocephin PT/OT consult-possible ECF placement Social service consult (2) History of CVA (cerebrovascular accident) Current Visit: Yes Status: Acute Assessment and Plan: Previous history of CVA with right-sided weakness PTOT consult (3) Acute cystitis Current Visit: Yes Status: Acute Assessment and Plan: We will continue Rocephin-pending sensitivity (4) CKD (chronic kidney disease) stage 3, GFR 30-59 ml/min Current Visit: No Status: Chronic Assessment and Plan: Creatinine is stable at this time 1.10 continue to monitor avoid nephrotoxins monitor intake and output daily weights (5) HLD (hyperlipidemia) Current Visit: No Status: Chronic Assessment and Plan: Continue with lovastatin (6) HTN (hypertension) Current Visit: No Status: Chronic Assessment and Plan: Blood pressure is stable at this time-continue with home medications (7) Paroxysmal atrial fibrillation Current Visit: No Status: Chronic Assessment and Plan: Continue with Coumadin monitor INR daily (8) Type 2 diabetes mellitus Current Visit: No Status: Chronic Assessment and Plan: Accu-Cheks before meals and at bedtime with sliding scale and basal insulin- hold oral medications for now (9) DVT prophylaxis Current Visit: No Status: Resolved Assessment and Plan: Continue with Coumadin - Time Spent with Patient Total time spent is greater than 50% in coordination of care (as documented) at patient's floor/unit and/or counseling patient: Internal Medicine: Result - Labs CBC & Chem 7: 02/15/18 04:00 02/15/18 04:00 Labs: Short CBC 02/15/18 Range/Units 04:00 WBC 6.5 (4.3-11.1) K/mcL Hgb 13.6 (12.9-16.9) g/dL Hct 38.3 (37.5-50.1) % Plt Count 260 (140-400) K/mcL BMP 02/15/18 04:00 Sodium 138 Potassium 4.1 Chloride 103 Carbon Dioxide 28 BUN 15 Creatinine 1.10 Glucose 165 H Calcium 9.0 - ABG Interpretation ABG results: PT/INR, D-dimer PT 27.8 Seconds (9.4-12.1) H 02/15/18 04:00 - VTE Reasons for not Prescribing Prophylaxis: Not indicated-Anticoagulated or INR therapeutic Consult Discharge Plan - Plan Referrals: Chrissy Welsh, INSTITUTIONAL RESEARCH COORDINATOR [Primary Care Provider] - (3) Acute cystitis Qualifiers: Qualified Code(s): N30.00 - Acute cystitis without hematuria (5) HLD (hyperlipidemia) Qualifiers: Hyperlipidemia type: mixed hyperlipidemia Qualified Code(s): E78.2 - Mixed hyperlipidemia (6) HTN (hypertension) Qualifiers: Hypertension type: essential hypertension Qualified Code(s): I10 - Essential (primary) hypertension (8) Type 2 diabetes mellitus Qualifiers: 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
[2018-02-15] MEDS ORDERED: *HR* Dextrose 50 % in Water (Syg) 50 ML SYRINGE IVP PRN (20:04)
[2018-02-15] MEDS ORDERED: Dextrose Gel 15 GM/37.5 ML TUBE PO PRN ×2 (20:04)
[2018-02-15] MEDS ORDERED: D5% in Water 1,000 ML IVC PRN (20:04)
[2018-02-15] MEDS: Insulin LISPRO 300 UNITS/3 ML VIAL SQ SCH (21:14)
[2018-02-16] MEDS: levETIRAcetam 250 MG TABLET PO SCH ×2 (06:00→17:36)
[2018-02-16 06:12] LABS: INR 2.4; Prothrombin Time 27.1 Seconds (9.4-12.1)
[2018-02-16 06:32] LABS: BUN/Creatinine Ratio 15 (6-26); Blood Urea Nitrogen 17 mg/dL (8-23); Calcium 9.4 mg/dL (8.6-10.3); Carbon Dioxide 29 mEq/L (23-29); Chloride 103 mEq/L (98-107); Glucose 163 mg/dL (70-105); Osmolality,Calculated 293 (280-300); Potassium 4.1 mEq/L (3.5-5.1); Sodium 139 mEq/L (136-145); eGFR For Non-African Americans > 60 (> 60)
[2018-02-16 07:01] LABS: Basophils % 0.3 %; Eosinophils # 0.3 K/mcL (0.0-0.6); Eosinophils % 5.1 %; Hematocrit 39.3 % (37.5-50.1); Hemoglobin 13.7 g/dL (12.9-16.9); Immature Granulocytes % 0.3 % (0-4); Lymphocytes % 29.8 %; Mean Corpuscular HGB Conc 34.9 g/dL (31.6-35.5); Mean Corpuscular Volume 86.2 fL (83.0-100.0); Mean Platelet Volume 9.8 fL (9.4-12.4); Monocytes # 0.5 K/mcL (0.0-1.3); Monocytes % 7.3 %; Neutrophils # 3.9 K/mcL (1.6-8.9); Platelet Count 276 K/mcL (140-400); Red Blood Count 4.56 M/mcL (4.19-5.50); Red Cell Distribution Width 12.9 % (11.5-14.5); Segmented Neutrophils % 57.2 %
[2018-02-16] MEDS: Insulin LISPRO 300 UNITS/3 ML VIAL SQ SCH ×4 (08:41→21:40)
[2018-02-16] MEDS: Hydrocortisone 10 MG TABLET PO SCH ×2 (08:41→17:36)
[2018-02-16] MEDS: Aspirin Enteric Coated 81 MG Tablet PO SCH (08:42)
[2018-02-16] MEDS: cefTRIAXone 1,000 MG in Water for inj. (sterile) 20 ML 10 ML IVP SCH (15:08)
[2018-02-16] MEDS: *HR* Warfarin 5 MG TABLET PO SCH (17:36)
[2018-02-16] MEDS: Insulin DETEMIR 100 UNIT/ML X5UNITS SQ SCH (18:17)
--- NOTE | 2018-02-16 20:55 | Internal Med Progress Note ---
Hospitalist Progress Note - Encounter Date of Encounter: 02/16/18 Time of Encounter: 11:00 - Subjective Interval History: Patient was seen and examined at bedside, patient evaluated by PT OT recommending SNF/ECF placement however there is some issues with insurance care management is attempting to set possible home health for the patient versus ECF we will follow up in a.m. - Exam Vitals: Temp Pulse Resp BP Pulse Ox 97.8 F 88 15 98/60 98 02/16/18 19:02 02/16/18 19:02 02/16/18 19:02 02/16/18 19:02 02/16/18 19:02 Exam: Skin: Free of rash and discoloration. Eyes: Sclera is white. There is no discharge from eyes. ENMT: Oral/pharyngeal mucosa is normal in appearance. There is no discharge from nose or ears. Respiratory: Normal breath sounds with no crackles and wheezes bilaterally. CV: Heart is regular with no gallop or murmur. GI: Abdomen is flat and soft with no palpable mass or visceromegaly. : There is no tenderness in patient's flanks bilaterally. Neuro exam: He has good strength in upper and lower extremities. He has normal eye movements. Psychiatric: He has normal affect. His thought process is appropriate to the situation. - Assessment and Plan (1) Generalized weakness Current Visit: Yes Status: Acute Assessment and Plan: Patient presented with difficulty ambulating increased weakness head CT with no acute intracranial abnormalities Urinalysis indicative UTI initiated on Rocephin we will switch to oral antibiotics PT/OT consult-commending ECF placement Social service consult-awaiting recommendations home health versus ECF (2) History of CVA (cerebrovascular accident) Current Visit: Yes Status: Acute Assessment and Plan: Previous history of CVA with right-sided weakness PT/OT consult-recommending ECF placement (3) Acute cystitis Current Visit: Yes Status: Acute Assessment and Plan: Urine culture grows enterococcus faecalis sensitive to doxycycline which we will place patient on 100 mg twice a day (4) CKD (chronic kidney disease) stage 3, GFR 30-59 ml/min Current Visit: No Status: Chronic Assessment and Plan: Creatinine is stable at this time 1.15 continue to monitor avoid nephrotoxins monitor intake and output daily weights, renal dose antibiotics (5) HLD (hyperlipidemia) Current Visit: No Status: Chronic Assessment and Plan: Continue with lovastatin (6) HTN (hypertension) Current Visit: No Status: Chronic Assessment and Plan: Blood pressure somewhat low at this time, we will hold at this time (7) Paroxysmal atrial fibrillation Current Visit: No Status: Chronic Assessment and Plan: Continue with Coumadin monitor INR daily (8) Type 2 diabetes mellitus Current Visit: No Status: Chronic Assessment and Plan: Accu-Cheks before meals and at bedtime with sliding scale and basal insulin- hold oral medications for now (9) DVT prophylaxis Current Visit: No Status: Resolved Assessment and Plan: Continue with Coumadin - Time Spent with Patient Total time spent is greater than 50% in coordination of care (as documented) at patient's floor/unit and/or counseling patient: Internal Medicine: Result - Labs CBC & Chem 7: 02/16/18 05:16 02/16/18 05:16 Labs: Short CBC 02/16/18 Range/Units 05:16 WBC 6.7 (4.3-11.1) K/mcL Hgb 13.7 (12.9-16.9) g/dL Hct 39.3 (37.5-50.1) % Plt Count 276 (140-400) K/mcL Neutrophils # 3.9 (1.6-8.9) K/mcL BMP 02/16/18 05:16 Sodium 139 Potassium 4.1 Chloride 103 Carbon Dioxide 29 BUN 17 Creatinine 1.15 Glucose 163 H Calcium 9.4 - ABG Interpretation ABG results: PT/INR, D-dimer PT 27.1 Seconds (9.4-12.1) H 02/16/18 05:16 - VTE Reasons for not Prescribing Prophylaxis: Not indicated-Anticoagulated or INR therapeutic Consult Discharge Plan - Plan Referrals: Chrissy Welsh, RELIGIOUS RITUAL SLAUGHTERER [Primary Care Provider] - (3) Acute cystitis Qualifiers: Qualified Code(s): N30.00 - Acute cystitis without hematuria (5) HLD (hyperlipidemia) Qualifiers: Hyperlipidemia type: mixed hyperlipidemia Qualified Code(s): E78.2 - Mixed hyperlipidemia (6) HTN (hypertension) Qualifiers: Hypertension type: essential hypertension Qualified Code(s): I10 - Essential (primary) hypertension (8) Type 2 diabetes mellitus Qualifiers: Diabetes mellitus rn long term care insulin use: without rn long term care use Diabetes mellitus complication status: with unspecified complications Qualified Code(s) : E11.8 - Type 2 diabetes mellitus with unspecified complications
[2018-02-17] MEDS: levETIRAcetam 250 MG TABLET PO SCH ×2 (06:27→17:13)
[2018-02-17 07:10] LABS: Basophils % 0.4 %; Eosinophils # 0.4 K/mcL (0.0-0.6); Eosinophils % 5.9 %; Hematocrit 41.6 % (37.5-50.1); Hemoglobin 14.6 g/dL (12.9-16.9); Immature Granulocytes % 0.4 % (0-4); Lymphocytes # 1.8 K/mcL (0.6-4.6); Lymphocytes % 27.2 %; Mean Corpuscular HGB Conc 35.1 g/dL (31.6-35.5); Mean Corpuscular Hemoglobin 30.7 pg (28.0-33.3); Mean Corpuscular Volume 87.6 fL (83.0-100.0); Mean Platelet Volume 9.5 fL (9.4-12.4); Monocytes # 0.5 K/mcL (0.0-1.3); Platelet Count 258 K/mcL (140-400); Red Blood Count 4.75 M/mcL (4.19-5.50); Red Cell Distribution Width 12.6 % (11.5-14.5); Segmented Neutrophils % 59.1 %
[2018-02-17 07:13] LABS: INR 2.4; Prothrombin Time 27.1 Seconds (9.4-12.1)
[2018-02-17] MEDS: Aspirin Enteric Coated 81 MG Tablet PO SCH (07:48)
[2018-02-17] MEDS: Hydrocortisone 10 MG TABLET PO SCH ×2 (07:49→17:13)
[2018-02-17] MEDS: Insulin LISPRO 300 UNITS/3 ML VIAL SQ SCH ×3 (07:50→17:13)
[2018-02-17 09:34] LABS: INR 2.1; Prothrombin Time 24.1 Seconds (9.4-12.1)
[2018-02-17] MEDS ORDERED: Doxycycline 100 MG CAPSULE PO SCH (10:00)
[2018-02-17 15:51] VITALS: BP 118/85
[2018-02-17] MEDS: Insulin DETEMIR 100 UNIT/ML X5UNITS SQ SCH (17:28)
[2018-02-17] MEDS ORDERED: *HR* Warfarin 5 MG TABLET PO ONE (18:00)
[2018-02-17] MEDS ORDERED: Warfarin perPT PO PRN (18:00)
--- NOTE | 2018-02-17 18:26 | Discharge Summary ---
- NOTES TO OUTPATIENT PROVIDER Notes to Outpatient Provider: Urine culture grew enterococcus faecalis- sensitive to doxycycline- 10 day course Orders not resulted at time of discharge: Pending orders 02/18/18 04:00 CBC [Complete Blood Count] [HEME] AM 0400 Prothrombin Time INR [COAG] AM 0400 02/19/18 04:00 Prothrombin Time INR [COAG] AM 0400 02/20/18 04:00 Prothrombin Time INR [COAG] AM 0400 02/21/18 04:00 Prothrombin Time INR [COAG] AM 0400 Date of Encounter: 02/17/18 Time of Encounter: 18:24 - Discharge Diagnosis (1) Generalized weakness Priority: Secondary Status: Acute (2) History of CVA (cerebrovascular accident) Priority: Secondary Status: Acute (3) Acute cystitis Priority: Primary Status: Acute Qualifiers: Hematuria presence: without hematuria Qualified Code(s): N30.00 - Acute cystitis without hematuria (4) CKD (chronic kidney disease) stage 3, GFR 30-59 ml/min Priority: Secondary Status: Chronic (5) HLD (hyperlipidemia) Priority: Secondary Status: Chronic Qualifiers: Hyperlipidemia type: mixed hyperlipidemia Qualified Code(s): E78.2 - Mixed hyperlipidemia (6) HTN (hypertension) Priority: Secondary Status: Chronic Qualifiers: Hypertension type: essential hypertension Qualified Code(s): I10 - Essential (primary) hypertension (7) Paroxysmal atrial fibrillation Priority: Secondary Status: Chronic (8) Type 2 diabetes mellitus Priority: Secondary Status: Chronic Qualifiers: Diabetes mellitus snf insulin use: without snf use Diabetes mellitus complication status: with unspecified complications Qualified Code(s) : E11.8 - Type 2 diabetes mellitus with unspecified complications Hospital course: Mr. Carter is a 82 year old male past medical history of CVA hypertension hyperlipidemia paroxysmal atrial fibrillation seizure disorder CVA CK D stage III presented from home after experiencing weakness and difficulty ambulating. who is her primary caregiver expresses that she is unable to provide care that he falls frequently and she is unable to get him up. At times she will have to call neighbor to assist her. Urinalysis was performed in the ER which did reveal UTI cultures did grow enterococcus faecalis sensitive to doxycycline. PT OT was consulted recommending ECF/SNF placement. During admission there was some difficulty with placement to ECF due to insurance coverage. Patient's family has opted for private pay office services manager consulted the patient has been accepted to the [facility]. Currently he is hemodynamically stable and he is ready for discharge Discharge discussed with: patient - Time Spent with Patient Total time spent providing and/or coordinating discharge services: - Discharge Medications Prescriptions: Doxycycline 100 mg PO BID #21 capsule Home Medications: Aspirin [Lo-Dose Aspirin EC] 81 mg PO DAILY 10/04/16 [History] Atenolol [Tenormin] 12.5 mg PO DAILY 10/04/16 [History] Cholecalciferol (Vitamin D3) [Vitamin D3] 2,000 unit PO DAILY 10/04/16 [History] Citalopram Hydrobromide [Citalopram HBr] 10 mg PO DAILY 10/04/16 [History] Ferrous Sulfate [Iron] 325 mg PO BID 10/04/16 [History] Glimepiride [Amaryl] 2 mg PO DAILY 10/04/16 [History] Hydrocortisone [Cortef] 10 mg PO QPM 10/04/16 [History] Hydrocortisone [Cortef] 15 mg PO QAM 10/04/16 [History] Multivit-Min/FA/Lycopen/Lutein [Adults 50+ Multivitamin Tablet] 1 tab PO DAILY 10/04/16 [History] Omeprazole [PriLOSEC] 20 mg PO BID 10/04/16 [History] Warfarin [Coumadin] 5 mg PO QPM 10/04/16 [History] levETIRAcetam [Keppra] 500 mg PO Q12HR 10/04/16 [History] Donepezil [Aricept] 10 mg PO HS 05/03/17 [History] Levothyroxine [Synthroid] 112 mcg PO 0630 05/03/17 [History] Lovastatin [Mevacor] 20 mg PO HS 05/03/17 [History] Bacitracin/PolymyxinB OINT [Polysporin] 1 appl TP BID 02/14/18 [History] Insulin Degludec [Tresiba Flextouch U-100] 29 unit SQ QPM 02/14/18 [History] Doxycycline 100 mg PO 1000,2200 10 Days #0 capsule 02/17/18 [Rx] Doxycycline 100 mg PO BID #21 capsule 02/17/18 [Rx] Allergies/Adverse Reactions: 3 Allergy/AdvReac Type Severity Reaction Status Date / Time Hydromorphone [From Dilaudid] Allergy HEART STOPS Verified 10/04/17 09:57 Date of admission: 02/14/18 13:04 Primary care physician: Chrissy Welsh CNP Consults: 02/15/18 08:43 Consult to Occupational Therapy [CONS] Routine Comment: Evaluate, develop and implement POC Reason for Consult: D/C PLANNING, ECF PLACEMENT Does patient have active BEDREST order?: No Is patient medically & hemodynamically stable?: Yes Consult to Physical Therapy [CONS] Routine Comment: Evaluate, develop and implement POC Reason for Consult: D/C PLANNING, ECF PLACEMENT Does patient have active BEDREST order?: No Is patient medically & hemodynamically stable?: Yes Discharging clinician: Gisele Wilkins Anticipated date of discharge: 02/17/18 - Constitutional Vitals: Temp Pulse Resp BP Pulse Ox 98.8 F 92 18 118/85 94 02/17/18 15:51 02/17/18 15:51 02/17/18 15:51 02/17/18 15:51 02/17/18 15:51 General appearance: Present: A&O X 3 - Head Head exam: Present: atraumatic, normocephalic - Eye Eye exam: Present: PERRL, conjuntiva pink, sclera anicteric Pupils: Present: PERRL - Neck Neck exam general surgery: Present: supple, trachea midline. Absent: lymphadenopathy - Respiratory Respiratory exam: Present: CTAB. Absent: accessory muscle use, rales, rhonchi, wheezes - Cardiovascular Cardiovascular exam: Present: RRR, +S1, +S2. Absent: diastolic murmur, gallop, rubs, systolic murmur - GI/Abdominal GI/Abdominal exam: Present: normal bowel sounds, soft, no peritoneal signs. Absent: distended, tenderness - Extremities Exam Extremities exam: Present: warm, radial pulses palpable and symmetrical. Absent : calf tenderness, cyanotic, pedal edema - Neurological Exam Neurological exam: Present: CN II-XII intact, oriented X3, no focal deficits. Absent: pronater drift, facial droop, speech deficit - Skin Skin exam: Present: dry, intact - Patient Status Disposition: Transfer SNF Condition: Fair - Discharge Instructions Follow Up With: Easterday,Chrissy L, [employer] [Primary Care Provider] - - Diet and Activity Activity: as per physical therapy, resume usual activities as tolerated - VTE Reasons for not Prescribing Prophylaxis: Not indicated-Anticoagulated or INR therapeutic
--- NOTE | 2018-02-17 18:56 | Physician Discharge Referral ---
ExtendedCare Referral Info Transfer To: [facility] Provider in Charge: Gisele Wilkins Provider in Charge after Transfer: PCP Institutional Level of Care: Skilled - Diagnosis (1) Generalized weakness Priority: Secondary Status: Acute (2) History of CVA (cerebrovascular accident) Priority: Secondary Status: Acute (3) Acute cystitis Priority: Primary Status: Acute (4) CKD (chronic kidney disease) stage 3, GFR 30-59 ml/min Priority: Secondary Status: Chronic (5) HLD (hyperlipidemia) Priority: Secondary Status: Chronic (6) HTN (hypertension) Priority: Secondary Status: Chronic (7) Paroxysmal atrial fibrillation Priority: Secondary Status: Chronic (8) Type 2 diabetes mellitus Priority: Secondary Status: Chronic Prognosis: Good - Transfer Medications Prescriptions: Doxycycline 100 mg PO BID #21 capsule Home Medications: Aspirin [Lo-Dose Aspirin EC] 81 mg PO DAILY 10/04/16 [History] Atenolol [Tenormin] 12.5 mg PO DAILY 10/04/16 [History] Cholecalciferol (Vitamin D3) [Vitamin D3] 2,000 unit PO DAILY 10/04/16 [History] Citalopram Hydrobromide [Citalopram HBr] 10 mg PO DAILY 10/04/16 [History] Ferrous Sulfate [Iron] 325 mg PO BID 10/04/16 [History] Glimepiride [Amaryl] 2 mg PO DAILY 10/04/16 [History] Hydrocortisone [Cortef] 10 mg PO QPM 10/04/16 [History] Hydrocortisone [Cortef] 15 mg PO QAM 10/04/16 [History] Multivit-Min/FA/Lycopen/Lutein [Adults 50+ Multivitamin Tablet] 1 tab PO DAILY 10/04/16 [History] Omeprazole [PriLOSEC] 20 mg PO BID 10/04/16 [History] Warfarin [Coumadin] 5 mg PO QPM 10/04/16 [History] levETIRAcetam [Keppra] 500 mg PO Q12HR 10/04/16 [History] Donepezil [Aricept] 10 mg PO HS 05/03/17 [History] Levothyroxine [Synthroid] 112 mcg PO 0630 05/03/17 [History] Lovastatin [Mevacor] 20 mg PO HS 05/03/17 [History] Bacitracin/PolymyxinB OINT [Polysporin] 1 appl TP BID 02/14/18 [History] Insulin Degludec [Tresiba Flextouch U-100] 29 unit SQ QPM 02/14/18 [History] Doxycycline 100 mg PO 1000,2200 10 Days #0 capsule 02/17/18 [Rx] Doxycycline 100 mg PO BID #21 capsule 02/17/18 [Rx] Allergies/Adverse Reactions: 3 Allergy/AdvReac Type Severity Reaction Status Date / Time Hydromorphone [From Dilaudid] Allergy HEART STOPS Verified 10/04/17 09:57 - Respiratory Orders Smoking Cessation: Smoking cessation has been advised. For more information, call the [place] Tobacco Quit Line at 3-906-TRPX-NOW. - Rehabiliation Orders Rehab Potential: Good Rehab Orders: Evaluation for Physical Therapy, Evaluation for Occupational Therapy - Diet Orders No Concentrated Sweets CERTIFICATION: I certify that the transfer of the above named patient to an Extended Care Facility is necessary for the continuing treatment of the diagnosis listed. The above information is true and accurate reflection of patient's current condition. Confidential - Redisclosure prohibited without a patient's written consent.
== END 2018-02-17 19:41 ==
LOC: 3BNU 10:30 → EMEROO 10:30 → INTOOBSV 13:04 → 3BNU 13:34
PROVIDERS: ADMIT Internal Medicine; ATTEND Internal Medicine